=== PATIENT | female | born 1955 | race Caucasian/White ===

== ENCOUNTER 2017-05-03 15:03 | Inpatient (IN) | payer OTHER ==
[2017-05-03] MEDS ORDERED: NORMAL SALINE 1000 ML 1,000 ML IV ONE ×2 (15:34→17:42)
--- NOTE | 2017-05-03 15:41 | ER Document Report ---
ED General - General Chief Complaint: Weakness Stated Complaint: BODY WEAKNESS Time Seen by Provider: 05/03/17 15:27 Mode of Arrival: Medic Information source: Patient - HPI Onset: Other - Pt. states she has been very depressed since her several months ago -- has been in bed for the past week, unable to get out of bed due to weakness. Daughter stopped by today to she her and called EMS to have her transported here for evaluation. Past Medical History - General Information source: Patient - Social History Smoking Status: Current Every Day Smoker Cigarette use (# per day): Yes Chew tobacco use (# tins/day): No Smoking Education Provided: Yes Family History: None Review of Systems - Review of Systems Constitutional: See HPI, Malaise, Weakness EENT: No symptoms reported Cardiovascular: No symptoms reported Respiratory: No symptoms reported Gastrointestinal: No symptoms reported Musculoskeletal: Joint pain - knees Neurological/Psychological: No symptoms reported -: Yes All other systems reviewed and negative Physical Exam - Vital signs Vitals: Temp Pulse Resp BP Pulse Ox 97.4 F 53 L 20 124/66 97 05/03/17 15:32 05/03/17 15:32 05/03/17 15:32 05/03/17 15:32 05/03/17 15:32 - General General appearance: Appears well - pt is emaciated - HEENT Mouth/Lips: Normal Mucous membranes: Dry Pharynx: Normal Neck: Normal - Respiratory Chest status: Nontender Breath sounds: Normal Chest palpation: Normal - Cardiovascular Rhythm: Regular Heart sounds: Normal auscultation - Abdominal Inspection: Normal Distension: No distension Bowel sounds: Normal Tenderness: Nontender - Extremities General lower extremity: Other - there is a 5 by 5 cm decubitus on the posterior aspect of R upper thigh. There is generalized edema of the LE's with some woody induration Knee: Other - there are bilateral healing abrasions on patellae diffusely. There is min TTP with FROM. Course - Vital Signs Vital signs: Temp Pulse Resp BP Pulse Ox 97.4 F 53 L 14 96/72 L 97 05/03/17 15:32 05/03/17 15:32 05/03/17 18:01 05/03/17 18:01 05/03/17 17:01 - Laboratory Result Diagrams: 05/03/17 17:00 05/03/17 17:00 Laboratory results interpreted by me: 05/03/17 05/03/17 05/03/17 17:00 17:00 17:00 Chloride 96 L BUN 27 H Creatinine 0.46 L Lactic Acid 2.5 H Total Bilirubin 3.3 H Direct Bilirubin 2.5 H CK-MB (CK-2) 5.10 H Total Protein 6.1 L Albumin 2.9 L - Diagnostic Test Radiology reviewed: Reports reviewed - bilateral pleural effusions, ?LLL infiltrate - Consults Dr. Hardin Time consulted: 18:17 Consulted provider: will come to ER Critical Care Note - Critical Care Note Total time excluding time spent on procedures (mins): 30 Discharge - Discharge Clinical Impression: Hypoxia Decubitus ulcer Qualifiers: Pressure ulcer location: thigh Pressure ulcer stage: stage 2 Laterality: left Qualified Code(s): L89.222 - Pressure ulcer of left hip, stage 2 Pneumonia Qualifiers: Pneumonia type: due to unspecified organism Condition: Stable Disposition: ADMITTED INPATIENT Unit Admitted: Telemetry
--- NOTE | 2017-05-03 16:02 | RADIOLOGY REPORT (SQ) ---
EXAM DESCRIPTION: CHEST PA/LAT COMPLETED DATE/TIME: 05/03/2017 3:53 pm REASON FOR STUDY: weakness COMPARISON: 04/28/2007 EXAM PARAMETERS: NUMBER OF VIEWS: two views TECHNIQUE: Digital Frontal and Lateral radiographic views of the chest acquired. RADIATION DOSE: NA LIMITATIONS: none FINDINGS: LUNGS AND PLEURA: There are bilateral pleural effusions. There is left lower lobe airspac e disease. Interstitial markings are prominent bilaterally. MEDIASTINUM AND HILAR STRUCTURES: No masses or contour abnormalities. HEART AND VASCULAR STRUCTURES: Heart size is grossly stable. There is central vascular congestion. BONES: No acute findings. HARDWARE: None in the chest. OTHER: No other significant finding. IMPRESSION: Bilateral pleural effusions with probable interstitial edema. Superimposed atelectasis or pneumonia in the left base cannot be excluded. TECHNICAL DOCUMENTATION: JOB ID: [id number] [employer]- All Rights Reserved
[2017-05-03] MEDS ORDERED: LEVOFLOXACIN 750 MG/D5W RTU 750 MG/150 ML RTUPB IV ONE (16:45)
[2017-05-03 17:38] LABS: ALANINE AMINOTRANSFERASE 37 U/L (9-52); ALBUMIN 2.9 g/dL (3.5-5.0); ALKALINE PHOSPHATASE 113 U/L (38-126); ANION GAP 12 (5-19); ASPARTATE AMINO TRANSFERASE 31 U/L (14-36); BILIRUBIN,DIRECT 2.5 mg/dL (0.0-0.4); BILIRUBIN,TOTAL 3.3 mg/dL (0.2-1.3); BLOOD UREA NITROGEN 27 mg/dL (7-20); CALCIUM 8.8 mg/dL (8.4-10.2); CARBON DIOXIDE 30 mmol/L (22-30); CHLORIDE 96 mmol/L (98-107); CREATINE KINASE 40 U/L (30-135); CREATININE RESULT 0.46 mg/dL (0.52-1.25); GLUCOSE 96 mg/dL (75-110); POTASSIUM 4.5 mmol/L (3.6-5.0); TOTAL PROTEIN 6.1 g/dL (6.3-8.2)
[2017-05-03 17:48] LABS: CREATINE KINASE MB 5.1 ng/mL (<4.55)
[2017-05-03 17:50] LABS: TROPONIN I 0.072 ng/mL
[2017-05-03 18:13] LABS: ABSOLUTE LYMPHOCYTES (AUTO) 1.2 10^3/uL (0.5-4.7); ABSOLUTE MONOCYTES (AUTO) 0.5 10^3/uL (0.1-1.4); BASOPHILS % (AUTO) 0.4 % (0-2); EOSINOPHILS % (AUTO) 0.1 % (0-6); HEMOGLOBIN 17.2 g/dL (12.0-15.5); HGB HCT DIFFERENCE -2.4; LYMPHOCYTES % (AUTO) 11.1 % (13-45); MEAN CORPUSCULAR HEMOGLOBIN 27.3 pg (27.0-33.4); MEAN CORPUSCULAR HGB CONC 31.9 g/dL (32.0-36.0); MEAN CORPUSCULAR VOLUME 86 fl (80-97); MONOCYTES % (AUTO) 4.7 % (3-13); RED CELL DISTRIBUTION WIDTH 22.2 % (11.5-14.0); SEGMENTED NEUTROPHILS % (AUTO) 83.7 % (42-78); WHITE BLOOD COUNT 10.8 10^3/uL (4.0-10.5)
[2017-05-03] MEDS ORDERED: ONDANSETRON 4 MG TAB.RAPDIS PO PRN (18:41)
[2017-05-03] MEDS ORDERED: ACETAMINOPHEN 325 MG TABLET PO PRN (18:41)
[2017-05-03] MEDS ORDERED: ONDANSETRON HCL INJ/PF 4 MG/2 ML SDV IV PRN (18:41)
[2017-05-03] MEDS ORDERED: IPRATROPIUM/ALBUTEROL 0.5-2.5 MG/3 ML AMPUL NEB PRN (18:41)
--- NOTE | 2017-05-03 18:59 | PDOC H&P ---
History of Present Illness Admission Date/PCP: 05/03/17 18:45 Patient complains of: Shortness of breath History of Present Illness: SILVESTRE AG is a 61 year old female whose in [facility] of this year and since that time has been depressed. The patient over the last week has been lying in bed and not getting out or eating. Her daughter checked on her and called EMS. Patient is found to have pneumonia. Patient reports that she has had a nonproductive cough and has felt short of breath. She denies any chest pain. She is emaciated and has anasarca. She reports that she has been eating very little. According the daughter she has lost 30 or 40 pounds by her estimation. The patient reports she has been depressed and has had suicidal thoughts but no definitive plan. She has taken Wellbutrin and Celexa in the past but has not taken for the last week. The patient has multiple areas of skin breakdown. Her bilateral elbows, bilateral heels, bilateral shins, bilateral knees, sacrum shows unstageable wound but presumed to be stage III decubitus. She has woody induration up to the level of her rib cage. Past Medical History Cardiac Medical History: Reports: Hypertension Pulmonary Medical History: Reports: Bronchitis EENT Medical History: Reports: None Neurological Medical History: Reports: None Endocrine Medical History: Reports: None Renal/ Medical History: Reports: None Malignancy Medical History: Reports: None GI Medical History: Reports: None Psychiatric Medical History: Reports: Depression Traumatic Medical History: Reports: None Hematology: Reports: None Infectious Medical History: Reports: None Past Surgical History Past Surgical History: Reports: Appendectomy Social History Information Source: Patient Lives with: Alone Smoking Status: Current Every Day Smoker Frequency of Alcohol Use: None Hx Recreational Drug Use: No Drugs: None Hx Prescription Drug Abuse: No - Advance Directive Resuscitation Status: Full Code Family History Family History: Mother at age 75 and had hypertension. Father at age 68 from liver disease. Parental Family History Reviewed: Yes Children Family History Reviewed: No Sibling(s) Family History Reviewed.: No Review of Systems Constitutional: PRESENT: weakness, weight loss - About 30 pounds.. ABSENT: chills, fever(s), headache(s) Eyes: ABSENT: visual disturbances Ears: ABSENT: hearing changes Cardiovascular: ABSENT: chest pain, dyspnea on exertion, edema, orthropnea, palpitations Respiratory: PRESENT: cough, dyspnea. ABSENT: hemoptysis, sputum Gastrointestinal: ABSENT: abdominal pain, constipation, diarrhea, hematemesis, hematochezia, nausea, vomiting Genitourinary: ABSENT: dysuria, hematuria Musculoskeletal: PRESENT: back pain Integumentary: PRESENT: other - Multiple areas of skin breakdown on elbows, knees, heels, sacrum. Neurological: PRESENT: weakness. ABSENT: abnormal gait, abnormal speech, confusion, dizziness, focal weakness, syncope Psychiatric: PRESENT: depression, suicidal ideation. ABSENT: homidical ideation Endocrine: ABSENT: cold intolerance, heat intolerance, polydipsia, polyuria Hematologic/Lymphatic: ABSENT: easy bleeding, easy bruising Physical Exam Vital Signs: Temp Pulse Resp BP Pulse Ox 97.4 F 53 L 14 96/72 L 97 05/03/17 15:32 05/03/17 15:32 05/03/17 18:01 05/03/17 18:01 05/03/17 17:01 General appearance: PRESENT: no acute distress, thin Head exam: PRESENT: atraumatic, normocephalic Eye exam: PRESENT: conjunctiva pink, EOMI, PERRLA. ABSENT: scleral icterus Ear exam: PRESENT: bleeding Mouth exam: PRESENT: dry mucosa, tongue midline Neck exam: ABSENT: carotid bruit, JVD, lymphadenopathy, thyromegaly Respiratory exam: PRESENT: rhonchi - Coarse rhonchi bilaterally.. ABSENT: rales , wheezes Cardiovascular exam: PRESENT: RRR. ABSENT: diastolic murmur, rubs, systolic murmur Pulses: PRESENT: normal dorsalis pedis pul Vascular exam: PRESENT: normal capillary refill GI/Abdominal exam: PRESENT: normal bowel sounds, soft. ABSENT: distended, guarding, mass, organolmegaly, rebound, tenderness Rectal exam: PRESENT: deferred Neurological exam: PRESENT: alert, awake, oriented to person, oriented to place , oriented to time, oriented to situation, CN II-XII grossly intact, other - Patient's gait was not tested.. ABSENT: motor sensory deficit Psychiatric exam: PRESENT: flat affect Skin exam: PRESENT: other - Multiple areas of erythema and skin breakdown on her elbows, knees, heels, sacrum. There is surrounding erythema along with a large bulla on the left foot on the plantar aspect. There is dark dusky area on the bilateral heels. The sacrum is unstageable wound but probable stage III at least. Results Impressions: Chest X-Ray 05/03/17 15:32 IMPRESSION: Bilateral pleural effusions with probable interstitial edema. Superimposed atelectasis or pneumonia in the left base cannot be excluded. Assessment & Plan - Diagnosis (1) Pneumonia Qualifiers: Pneumonia type: due to unspecified organism Is this a current diagnosis for this admission?: Yes Plan: Patient has been depressed for the last several months since the of her . She has been lying in bed for the last week and now has pneumonia. We will give Rocephin and Zithromax. Most likely has gram-positive cocci as the cause for her community-acquired pneumonia. (2) Malnutrition Is this a current diagnosis for this admission?: Yes Plan: The patient is uncertain as to how much weight she is lost. The daughter estimates that she is lost about 30 or 40 pounds. Will consult dietary (3) Hypertension Is this a current diagnosis for this admission?: Yes Plan: Patient reports a history of hypertension but is not currently on medications. Her blood pressures in the normal range. (4) Depression Is this a current diagnosis for this admission?: Yes Plan: She reports that she has taken Wellbutrin and Celexa but has not taken it for the last week. We will start Celexa and consult psychiatry. (5) Decubitus ulcer Qualifiers: Pressure ulcer location: thigh Pressure ulcer stage: stage 2 Laterality: left Qualified Code(s): L89.222 - Pressure ulcer of left hip, stage 2 Is this a current diagnosis for this admission?: Yes Plan: The patient has pressure ulcers from lying in bed. Will do local wound care. Will consult surgery tomorrow for debridement of her wounds. - Time Time Spent: 50 to 70 Minutes - Inpatient Certification Medical Necessity: Need Close Monitoring Due to Risk of Patient Decompensation, Need For IV Fluids, Need for IV Antibiotics
[2017-05-03 20:33] LABS: THYROID STIMULATING HORMONE 7.45 uIU/mL (0.47-4.68)
--- NOTE | 2017-05-03 23:28 | EKG REPORT ---
SEVERITY:- ABNORMAL ECG - SINUS TACHYCARDIA MULTIPLE VENTRICULAR PREMATURE COMPLEXES LOW VOLTAGE IN FRONTAL LEADS RIGHT VENTRICULAR HYPERTROPHY : Confirmed by: Gale Enriquez 03-May-2017 23:27:04
[2017-05-03] MEDS: FAMOTIDINE 20 MG TABLET PO SCH (23:56)
[2017-05-04] MEDS: NORMAL SALINE 1000 ML 1,000 ML IV PRN ×2 (01:32→08:35)
[2017-05-04 06:33] LABS: ABSOLUTE LYMPHOCYTES (AUTO) 1.2 10^3/uL (0.5-4.7); ABSOLUTE MONOCYTES (AUTO) 0.6 10^3/uL (0.1-1.4); ABSOLUTE NEUT (AUTO) 6.8 10^3/uL (1.7-8.2); EOSINOPHILS % (AUTO) 0.1 % (0-6); HEMATOCRIT 50.3 % (36.0-47.0); HEMOGLOBIN 15.9 g/dL (12.0-15.5); HGB HCT DIFFERENCE -2.6; LYMPHOCYTES % (AUTO) 13.7 % (13-45); MEAN CORPUSCULAR HEMOGLOBIN 27.4 pg (27.0-33.4); MEAN CORPUSCULAR HGB CONC 31.6 g/dL (32.0-36.0); MEAN CORPUSCULAR VOLUME 87 fl (80-97); MONOCYTES % (AUTO) 6.7 % (3-13); RED CELL DISTRIBUTION WIDTH 22.1 % (11.5-14.0); SEGMENTED NEUTROPHILS % (AUTO) 79.5 % (42-78); WHITE BLOOD COUNT 8.6 10^3/uL (4.0-10.5)
[2017-05-04 06:47] LABS: ANION GAP 6 (5-19); BLOOD UREA NITROGEN 22 mg/dL (7-20); CALCIUM 8.4 mg/dL (8.4-10.2); CARBON DIOXIDE 36 mmol/L (22-30); CHLORIDE 99 mmol/L (98-107); CREATININE RESULT 0.44 mg/dL (0.52-1.25); GLUCOSE 97 mg/dL (75-110); MAGNESIUM 1.8 mg/dL (1.6-2.3); SODIUM 141.3 mmol/L (137-145)
[2017-05-04 08:25] LABS: APPEARANCE,URINE SLIGHTLY-CLOUDY; BILIRUBIN,URINE SMALL (NEGATIVE); GLUCOSE, URINE NEGATIVE (NEGATIVE); KETONES,URINE NEGATIVE (NEGATIVE); LEUKOCYTE ESTERASE,URINE SMALL (NEGATIVE); NITRITE,URINE NEGATIVE (NEGATIVE); PROTEIN,URINE 30 mg/dL (NEGATIVE); URINE SPECIFIC GRAVITY 1.027
[2017-05-04] MEDS: ENOXAPARIN SODIUM INJ 40 MG/0.4 ML DISP.SYRIN SUBCUT SCH (09:45)
[2017-05-04] MEDS: CEFTRIAXONE 1 GM/D5W RTU 1 GM/50 ML RTUPB IV SCH (09:46)
[2017-05-04] MEDS: FAMOTIDINE 20 MG TABLET PO SCH ×2 (09:47→21:38)
[2017-05-04] MEDS: CITALOPRAM HYDROBROMIDE 20 MG TABLET PO SCH (09:47)
[2017-05-04] MEDS: AZITHROMYCIN 500 MG in DEXTROSE 5%-WATER 250 ML IV SCH (10:44)
--- NOTE | 2017-05-04 13:07 | PDOC PROGRESS REPORT ---
Subjective Progress Note for:: 05/04/17 Subjective:: Denies any complaints Physical Exam Vital Signs: Temp Pulse Resp BP Pulse Ox 97.8 F 106 H 16 128/70 H 98 05/04/17 10:46 05/04/17 10:46 05/04/17 10:46 05/04/17 10:46 05/04/17 10:46 Intake & Output 05/03/17 05/04/17 05/05/17 06:59 06:59 06:59 Intake Total 1814 200 Balance 1814 200 Weight 52.5 kg General appearance: PRESENT: no acute distress Eye exam: PRESENT: conjunctiva pink. ABSENT: scleral icterus Ear exam: PRESENT: normal external ear exam Mouth exam: PRESENT: moist, tongue midline Neck exam: ABSENT: JVD Respiratory exam: PRESENT: rhonchi - Coarse rhonchi in the bases.. ABSENT: rales, wheezes Cardiovascular exam: PRESENT: RRR. ABSENT: diastolic murmur, rubs, systolic murmur GI/Abdominal exam: PRESENT: normal bowel sounds, soft. ABSENT: distended, guarding, mass, organolmegaly, rebound, tenderness Extremities exam: ABSENT: calf tenderness, clubbing, pedal edema Neurological exam: PRESENT: alert, awake, oriented to person, oriented to place , oriented to time, oriented to situation, CN II-XII grossly intact. ABSENT: motor sensory deficit Psychiatric exam: PRESENT: flat affect Skin exam: PRESENT: other - Multiple areas of skin breakdown on her elbows, knees, heels, sacrum. Results Laboratory Results: 05/04/17 05:41 05/04/17 05:41 05/03/17 05/03/17 05/04/17 19:40 23:55 05:41 WBC 8.6 RBC 5.80 H Hgb 15.9 H Hct 50.3 H MCV 87 MCH 27.4 MCHC 31.6 L RDW 22.1 H Plt Count 193 Seg Neutrophils % 79.5 H Lymphocytes % 13.7 Monocytes % 6.7 Eosinophils % 0.1 Basophils % 0.0 Absolute Neutrophils 6.8 Absolute Lymphocytes 1.2 Absolute Monocytes 0.6 Absolute Eosinophils 0.0 Absolute Basophils 0.0 Sodium Potassium Chloride Carbon Dioxide Anion Gap BUN Creatinine Est GFR ( Amer) Est GFR (Non-Af Amer) Glucose Lactic Acid 1.9 Calcium Magnesium TSH 7.45 H Free T4 0.73 L Urine Color Urine Appearance Urine pH Ur Specific [place] Urine Protein Urine Glucose (UA) Urine Ketones Urine Blood Urine Nitrite Ur Leukocyte Esterase Urine WBC (Auto) Urine RBC (Auto) 05/04/17 05/04/17 05:41 07:57 WBC RBC Hgb Hct MCV MCH MCHC RDW Plt Count Seg Neutrophils % Lymphocytes % Monocytes % Eosinophils % Basophils % Absolute Neutrophils Absolute Lymphocytes Absolute Monocytes Absolute Eosinophils Absolute Basophils Sodium 141.3 Potassium 4.0 Chloride 99 Carbon Dioxide 36 H Anion Gap 6 BUN 22 H Creatinine 0.44 L Est GFR ( Amer) > 60 Est GFR (Non-Af Amer) > 60 Glucose 97 Lactic Acid Calcium 8.4 Magnesium 1.8 TSH Free T4 Urine Color SANTANA Urine Appearance SLIGHTLY-CLOUDY Urine pH 5.0 Ur Specific [place] 1.027 Urine Protein 30 H Urine Glucose (UA) NEGATIVE Urine Ketones NEGATIVE Urine Blood NEGATIVE Urine Nitrite NEGATIVE Ur Leukocyte Esterase SMALL H Urine WBC (Auto) 112 Urine RBC (Auto) 7 05/03/17 19:40 NT-Pro-B Natriuret Pep 6660 H Impressions: Chest X-Ray 05/03/17 15:32 IMPRESSION: Bilateral pleural effusions with probable interstitial edema. Superimposed atelectasis or pneumonia in the left base cannot be excluded. Assessment & Plan - Diagnosis (1) Pneumonia Qualifiers: Pneumonia type: due to unspecified organism Is this a current diagnosis for this admission?: Yes Plan: Patient has been depressed for the last several months since the of her . She has been lying in bed for the last week and now has pneumonia. We will give Rocephin and Zithromax. Most likely has gram-positive cocci as the cause for her community-acquired pneumonia. (2) Malnutrition Is this a current diagnosis for this admission?: Yes Plan: The patient is uncertain as to how much weight she is lost. The daughter estimates that she is lost about 30 or 40 pounds. Will consult dietary (3) Hypertension Is this a current diagnosis for this admission?: Yes Plan: Patient reports a history of hypertension but is not currently on medications. Her blood pressures in the normal range. (4) Depression Is this a current diagnosis for this admission?: Yes Plan: She reports that she has taken Wellbutrin and Celexa but has not taken it for the last week. We will start Celexa and consult psychiatry. (5) Decubitus ulcer Qualifiers: Pressure ulcer location: thigh Pressure ulcer stage: stage 2 Laterality: left Qualified Code(s): L89.222 - Pressure ulcer of left hip, stage 2 Is this a current diagnosis for this admission?: Yes Plan: The patient has pressure ulcers from lying in bed. Will do local wound care. Will consult surgery for debridement of her wounds. - Time Time Spent with patient: 25-34 minutes - Inpatient Certification Medical Necessity: Need Close Monitoring Due to Risk of Patient Decompensation, Need for IV Antibiotics
--- NOTE | 2017-05-04 22:43 | OPERATIVE REPORT E ---
Operative Report NAME: SILVESTRE AG : 1955 AGE: 61Y DATE OF SURGERY: 05/04/2017 ROOM: 331 PREOPERATIVE DIAGNOSIS: Multiple pressure ulcers of the right knee, left knee and left ischial tuberosity, stage 3. POSTOPERATIVE DIAGNOSIS: Multiple pressure ulcers of the right knee, left knee and left ischial tuberosity, stage 3. OPERATION: Excisional debridement of eschar from left knee, right knee and left ischial tuberosity pressure ulcers, stage 3. SURGEON: GUSTAVO CLAYTON M.D. ANESTHESIA: None. DRAINS: None. TISSUE REMOVED OR ALTERED: tissue. COMPLICATIONS: None. SUMMARY OF PROCEDURE: The patient's effected areas including left knee, right knee and left ischial tuberosity were exposed. Stage 3 pressure ulcers were cleaned with wipes, then using a pair of pickups and #10 blade, eschar including skin and subcutaneous tissue, which was dry and leather-like, were excised in a clean, excisional fashion down to the deep subcutaneous tissue on the ischial tuberosity and down to the fascia over the knees. Approximate surface area included 2 x 2 on the left knee, 3 x 3 cm on the right knee, and 4 x 4 cm on the tibial tuberosity. The wounds were washed and coated with dressings including Accuzyme cream and Allevyn dressings. Dressing change orders entered into the electronic medical record. The patient tolerated the procedure well. DICTATING PHYSICIAN: GUSTAVO CLAYTON M.D. [id number] PHY#: [id number] ID: [id number] JOB#: [id number] ACCT: [id number] cc:GUSTAVO CLAYTON M.D. > MTDD
[2017-05-05] MEDS: NORMAL SALINE 1000 ML 1,000 ML IV PRN ×2 (05:26→22:22)
[2017-05-05 06:39] LABS: ARTERIAL BLOOD BASE EXCESS 6.1 mmol/L; ARTERIAL BLOOD O2 SATURATION 96.1 % (94-98)
[2017-05-05 06:42] LABS: ABSOLUTE LYMPHOCYTES (AUTO) 0.9 10^3/uL (0.5-4.7); ABSOLUTE MONOCYTES (AUTO) 0.4 10^3/uL (0.1-1.4); ABSOLUTE NEUT (AUTO) 7.4 10^3/uL (1.7-8.2); BASOPHILS % (AUTO) 0.5 % (0-2); HEMATOCRIT 53.7 % (36.0-47.0); HEMOGLOBIN 16.6 g/dL (12.0-15.5); HGB HCT DIFFERENCE -3.9; LYMPHOCYTES % (AUTO) 10.6 % (13-45); MEAN CORPUSCULAR HEMOGLOBIN 27.5 pg (27.0-33.4); MEAN CORPUSCULAR HGB CONC 30.9 g/dL (32.0-36.0); MEAN CORPUSCULAR VOLUME 89 fl (80-97); MONOCYTES % (AUTO) 4.1 % (3-13); RED BLOOD COUNT 6.05 10^6/uL (3.72-5.28); RED CELL DISTRIBUTION WIDTH 23.1 % (11.5-14.0); SEGMENTED NEUTROPHILS % (AUTO) 84.8 % (42-78); WHITE BLOOD COUNT 8.7 10^3/uL (4.0-10.5)
[2017-05-05] MEDS ORDERED: NALOXONE HCL INJ/PF 0.4 MG/1 ML SDV IV ONE (06:46)
[2017-05-05] MEDS ORDERED: NALOXONE HCL INJ/PF 0.4 MG/1 ML SDV ONE (06:53)
--- NOTE | 2017-05-05 07:59 | PDOC PROGRESS REPORT ---
Subjective Progress Note for:: 05/05/17 Subjective:: Patient admitted for pneumonia and depression. Patient reportedly had change in mental status last night of which the ABG shows a low pH with an elevated PCO2. Patient was transferred to ICU and was placed on BiPAP. Patient however is mildly lethargic but easily arousable and reportedly answers questions appropriately. No reported temperature spikes no respiratory distress. No nausea or vomiting. Patient on admission reported with suicidal ideations. Currently denies hurting herself or other. Physical Exam Vital Signs: Temp Pulse Resp BP Pulse Ox 97.5 F 108 H 15 100/62 95 05/05/17 05:45 05/05/17 05:45 05/05/17 06:22 05/05/17 05:45 05/05/17 06:22 Intake & Output 05/04/17 05/05/17 05/06/17 06:59 06:59 06:59 Intake Total 1814 1213 Output Total 300 Balance 1814 913 Weight 52.5 kg 52.4 kg General appearance: PRESENT: no acute distress, thin, other - On BiPAP Head exam: PRESENT: normocephalic Eye exam: PRESENT: EOMI Mouth exam: PRESENT: moist, neck supple Neck exam: ABSENT: JVD Respiratory exam: PRESENT: decreased breath sounds - Lung bases, rhonchi - Few bilateral, unlabored. ABSENT: wheezes Cardiovascular exam: PRESENT: RRR, +S1, +S2. ABSENT: gallop GI/Abdominal exam: PRESENT: hypoactive bowel sounds, soft, other - Fullness to percussion. ABSENT: distended Extremities exam: PRESENT: other - Trace lower extremity edema Neurological exam: PRESENT: alert, awake, oriented to situation Psychiatric exam: PRESENT: depressed Skin exam: PRESENT: dry, warm, other - Multiple decubitus ulcers on the legs and knees bilaterally and on the left hip. Wound seems to be clean without any foul-smelling drainage noted.. ABSENT: cyanosis Results Laboratory Results: 05/05/17 06:19 05/05/17 07:26 05/04/17 05/05/17 05/05/17 07:57 06:19 06:19 WBC 8.7 RBC 6.05 H Hgb 16.6 H Hct 53.7 H MCV 89 MCH 27.5 MCHC 30.9 L RDW 23.1 H Plt Count 177 Seg Neutrophils % 84.8 H Lymphocytes % 10.6 L Monocytes % 4.1 Eosinophils % 0.0 Basophils % 0.5 Absolute Neutrophils 7.4 Absolute Lymphocytes 0.9 Absolute Monocytes 0.4 Absolute Eosinophils 0.0 Absolute Basophils 0.0 Carbonic Acid HCO3/H2CO3 Ratio ABG pH ABG pCO2 ABG pO2 ABG HCO3 ABG O2 Saturation ABG Base Excess FiO2 Sodium Cancelled Potassium Cancelled Chloride Cancelled Carbon Dioxide Cancelled Anion Gap Cancelled BUN Cancelled Creatinine Cancelled Est GFR ( Amer) Cancelled Est GFR (Non-Af Amer) Cancelled Glucose Cancelled Calcium Cancelled Urine Color SANTANA Urine Appearance SLIGHTLY-CLOUDY Urine pH 5.0 Ur Specific [place] 1.027 Urine Protein 30 H Urine Glucose (UA) NEGATIVE Urine Ketones NEGATIVE Urine Blood NEGATIVE Urine Nitrite NEGATIVE Ur Leukocyte Esterase SMALL H Urine WBC (Auto) 112 Urine RBC (Auto) 7 05/05/17 05/05/17 06:20 07:26 WBC RBC Hgb Hct MCV MCH MCHC RDW Plt Count Seg Neutrophils % Lymphocytes % Monocytes % Eosinophils % Basophils % Absolute Neutrophils Absolute Lymphocytes Absolute Monocytes Absolute Eosinophils Absolute Basophils Carbonic Acid 3.57 H HCO3/H2CO3 Ratio 11:1 ABG pH 7.16 L* ABG pCO2 118.5 H* ABG pO2 109.9 H ABG HCO3 40.8 H ABG O2 Saturation 96.1 ABG Base Excess 6.1 FiO2 44% Sodium Cancelled Potassium Cancelled Chloride Cancelled Carbon Dioxide Cancelled Anion Gap Cancelled BUN Cancelled Creatinine Cancelled Est GFR ( Amer) Cancelled Est GFR (Non-Af Amer) Cancelled Glucose Cancelled Calcium Cancelled Urine Color Urine Appearance Urine pH Ur Specific [place] Urine Protein Urine Glucose (UA) Urine Ketones Urine Blood Urine Nitrite Ur Leukocyte Esterase Urine WBC (Auto) Urine RBC (Auto) 05/03/17 19:40 NT-Pro-B Natriuret Pep 6660 H Impressions: Chest X-Ray 05/03/17 15:32 IMPRESSION: Bilateral pleural effusions with probable interstitial edema. Superimposed atelectasis or pneumonia in the left base cannot be excluded. Assessment & Plan - Diagnosis (1) Acute hypercapnic respiratory failure Is this a current diagnosis for this admission?: Yes (2) Pneumonia Qualifiers: Pneumonia type: due to unspecified organism Is this a current diagnosis for this admission?: Yes (3) UTI (urinary tract infection) Qualifiers: Urinary tract infection type: site unspecified Hematuria presence: without hematuria Qualified Code(s): N39.0 - Urinary tract infection, site not specified Is this a current diagnosis for this admission?: Yes (4) Hypothyroidism Qualifiers: Hypothyroidism type: unspecified Qualified Code(s): E03.9 - Hypothyroidism , unspecified Is this a current diagnosis for this admission?: Yes (5) Decubitus ulcer Qualifiers: Pressure ulcer location: thigh Pressure ulcer stage: stage 2 Laterality: left Qualified Code(s): L89.222 - Pressure ulcer of left hip, stage 2 Is this a current diagnosis for this admission?: Yes (6) Depression Qualifiers: Depression Type: unspecified Qualified Code(s): F32.9 - Major depressive disorder, single episode, unspecified Is this a current diagnosis for this admission?: Yes (7) Hypertension Qualifiers: Hypertension type: essential hypertension Qualified Code(s): I10 - Essential (primary) hypertension Is this a current diagnosis for this admission?: Yes (8) Malnutrition Qualifiers: Malnutrition type: unspecified type Qualified Code(s): E46 - Unspecified protein-calorie malnutrition Is this a current diagnosis for this admission?: Yes - Time Time Spent with patient: 25-34 minutes - Plan Summary Plan Summary: Continue BIPAP. Repeat ABG and monitor PCO2. Obtain echocardiogram. Continue antibiotics. Obtain urine culture. Consult psychiatry. Check KUB for impaction.
[2017-05-05 09:22] LABS: VENOUS BLOOD HCO3 39.5 mmol/L (20-32); VENOUS BLOOD PH 7.21 (7.30-7.42)
[2017-05-05 09:24] LABS: VENOUS BLOOD PCO2 100.6 mmHg (35-63)
[2017-05-05 09:37] LABS: ANION GAP 6 (5-19); BLOOD UREA NITROGEN 22 mg/dL (7-20); CALCIUM 8.7 mg/dL (8.4-10.2); CARBON DIOXIDE 37 mmol/L (22-30); CHLORIDE 98 mmol/L (98-107); CREATININE RESULT 0.52 mg/dL (0.52-1.25); GLUCOSE 103 mg/dL (75-110); POTASSIUM 4.4 mmol/L (3.6-5.0); SODIUM 141.2 mmol/L (137-145)
--- NOTE | 2017-05-05 10:05 | PSYCHOLOGICAL NOTE ---
Psych Note - Psych Note Psych Note: SILVESTRE AG is a 61 year old female whose in [facility] of this year and since that time has been depressed. The patient over the last week has been lying in bed and not getting out or eating. Her daughter checked on her and called EMS. Patient is found to have pneumonia. Patient reports that she has had a nonproductive cough and has felt short of breath. She denies any chest pain. She is emaciated and has anasarca. She reports that she has been eating very little. According the daughter she has lost 30 or 40 pounds by her estimation. The patient reports she has been depressed and has had suicidal thoughts but no definitive plan. She has taken Wellbutrin and Celexa in the past but has not taken for the last week. Patient was transferred to ICU and was placed on BiPAP. ICU staff request re- evaluation to occur tomorrow due to patient's current presentation. Will follow.
--- NOTE | 2017-05-05 10:48 | OPERATIVE REPORT E ---
Operative Report NAME: SILVESTRE AG : 1955 AGE: 61Y DATE OF SURGERY: 05/05/2017 ROOM: 601 PREOPERATIVE DIAGNOSIS: POOR VEINS FOR IV ACCESS IN PATIENT WITH PNEUMONIA AND FAILURE TO THRIVE. POSTOPERATIVE DIAGNOSIS: POOR VEINS FOR IV ACCESS IN PATIENT WITH PNEUMONIA AND FAILURE TO THRIVE. OPERATION: Placement of right subclavian catheter. SURGEON: MAGY MANDEL M.D. ANESTHESIA: Local. INDICATIONS: This is a 61-year-old female who needed IV access for medications and fluids. She has poor peripheral veins are IV access. DESCRIPTION OF PROCEDURE: The patient was placed in Trendelenburg position and the right chest and neck were then prepped and draped in the usual sterile fashion. Local anesthesia infiltrated along the right infraclavicular area and the right subclavian vein punctured and guidewire passed through the needle towards the area of the superior vena cava and needle subsequently pulled out. Insertion site was then dilated and a triple-lumen catheter inserted through the guidewire towards the superior vena cava. The catheter was then anchored to the skin with 3-0 silk. The catheter was placed about 15 cm from the puncture site. Next, BioPatch was placed at the insertion site and a transparent sterile dressing was placed over the BioPatch and catheter. The 3-way ports were irrigated and aspirated blood easily. A chest x-ray will be obtained for placement and to make sure there is no pneumothorax. DICTATING PHYSICIAN: MAGY MANDEL M.D. [id number] PHY#: [id number] ID: [id number] JOB#: [id number] ACCT: [id number] cc:MAGY MANDEL M.D. >
[2017-05-05] MEDS ORDERED: ONDANSETRON 4 MG TAB.RAPDIS PO PRN (11:00)
--- NOTE | 2017-05-05 11:28 | RADIOLOGY REPORT (SQ) ---
EXAM DESCRIPTION: CHEST SINGLE VIEW COMPLETED DATE/TIME: 05/05/2017 10:53 am REASON FOR STUDY: respiratory failure, BIPAP COMPARISON: 05/03/2017 EXAM PARAMETERS: NUMBER OF VIEWS: One view. TECHNIQUE: Single frontal radiographic view of the chest acquired. RADIATION DOSE: NA LIMITATIONS: None. FINDINGS: LUNGS AND PLEURA: There are persistent bilateral pleural effusions and bibasilar airspace disease. A right-sided central line has been placed. Catheter tip overlies the SVC. No pneumothora x. MEDIASTINUM AND HILAR STRUCTURES: No masses. Contour normal. HEART AND VASCULAR STRUCTURES: Heart normal in size. Normal vasculature. BONES: No acute findings. HARDWARE: None in the chest. OTHER: No other significant finding. IMPRESSION: Increasing pleural effusions and bibasilar airspace disease. A component of vascular co ngestion cannot be excluded. A right-sided central line has been added. No pneumothorax. TECHNICAL DOCUMENTATION: JOB ID: [id number]
--- NOTE | 2017-05-05 11:29 | RADIOLOGY REPORT (SQ) ---
EXAM DESCRIPTION: KUB/ABDOMEN (SINGLE VIEW) COMPLETED DATE/TIME: 05/05/2017 10:53 am REASON FOR STUDY: fecal impaction COMPARISON: 04/28/2007 NUMBER OF VIEWS: One view. TECHNIQUE: Supine radiographic image of the abdomen acquired. LIMITATIONS: None. FINDINGS: BOWEL GAS PATTERN: Gas pattern is nonobstructive. There is large amount of stool in the v isualize:. No small-bowel air is identified. This may be secondary to fluid-filled small bowel loop s. CALCIFICATIONS: No suspicious calcifications. SOFT TISSUES: No gross mass or suggestion of organomegaly. HARDWARE: None in the abdomen. BONES: No acute fracture. No worrisome bone lesions. OTHER: No other significant finding. IMPRESSION: Large amount of stool throughout the colon consistent with the clinical history. No con ventional radiographic evidence of obstruction. TECHNICAL DOCUMENTATION: JOB ID: [id number] All Rights Reserved
[2017-05-05] MEDS: CITALOPRAM HYDROBROMIDE 20 MG TABLET PO SCH (11:34)
[2017-05-05] MEDS: FAMOTIDINE 20 MG TABLET PO SCH ×2 (11:34→22:21)
[2017-05-05] MEDS: AZITHROMYCIN 500 MG in DEXTROSE 5%-WATER 250 ML IV SCH (12:03)
[2017-05-05] MEDS: CEFTRIAXONE 1 GM/D5W RTU 1 GM/50 ML RTUPB IV SCH (12:03)
[2017-05-05] MEDS: ENOXAPARIN SODIUM INJ 40 MG/0.4 ML DISP.SYRIN SUBCUT SCH (12:04)
[2017-05-05 12:40] LABS: VENOUS BLOOD BASE EXCESS 1.6 mmol/L; VENOUS BLOOD HCO3 32.6 mmol/L (20-32); VENOUS BLOOD PH 7.22 (7.30-7.42)
[2017-05-05 12:44] LABS: VENOUS BLOOD PCO2 82.5 mmHg (35-63)
[2017-05-05 12:54] LABS: URINE BARBITURATES SCREEN NEGATIVE; URINE METHADONE SCREEN NEGATIVE; URINE OPIATES LOW NEGATIVE; URINE PHENCYCLIDINE SCREEN NEGATIVE
[2017-05-05] MEDS ORDERED: FUROSEMIDE 20 MG TABLET PO ONE (13:50)
[2017-05-05] MEDS ORDERED: FUROSEMIDE INJ/PF 20 MG/2 ML SDV IV ONE (14:00)
[2017-05-05] MEDS ORDERED: FUROSEMIDE INJ/PF 20 MG/2 ML SDV ONE (14:31)
--- NOTE | 2017-05-05 18:18 | XCELERA REPORT ---
[address] [address] Transthoracic Echocardiogram Report Name: SILVESTRE AG Age: 61 yrs Gender: Female : 1955 Patient Status: Inpatient Patient Location: ICU^601^A Study Date: 05/05/2017 08:28 AM Height: 63 in Weight: 115 lb BSA: 1.5 m2 Procedure: A two-dimensional transthoracic echocardiogram with color flow and Doppler was performed. The study was technically difficult with many images being suboptimal in quality. Reason For Study: pleural effusion, elevated BNP History: pleural effusion, elevated BNP. Ordering Physician: DAVID SANDERS Performed By: Ana Benoit Interpretation Summary The left ventricle is normal in size. There is normal left ventricular wall thickness. LV EF is 60% Left ventricular systolic function is normal. Doppler measurements suggest impaired left ventricular relaxation, which is associated with grade I/IV or mild diastolic dysfunction The left ventricular wall motion is normal. Flattened septum is consistent with RV pressure/volume overload There is no thrombus. There is no ventricular septal defect visualized. The right ventricle is mildly dilated. The right atrium is moderately dilated. The left atrial size is normal. The interatrial septum is intact with no evidence for an atrial septal defect. There is no evidence of mitral valve prolapse. There is no mitral valve stenosis. There is a mild amount of mitral regurgitation There is no aortic valve stenosis No aortic regurgitation is present. There is a severe amount of tricuspid regurgitation There is servere pulmonary hypertension by echo RVSP is 106 mm of Hg , with RA mean of 20. There is a trace amount of pulmonic regurgitation Minimal pericardial effusion. There are no echocardiographic or Doppler indications for cardiac tamponade MMode/2D Measurements & Calculations RVDd: 4.0 cm LVIDd: 3.5 cm FS: 43.2 % Ao root diam: 2.5 cm IVSd: 0.55 cm LVIDs: 2.0 cm EDV(Teich): 51.9 ml LVPWd: 0.60 cm ESV(Teich): 12.8 ml Ao root area: 4.7 cm2 EF(Teich): 75.3 % LA dimension: 2.9 cm Doppler Measurements & Calculations MV E max sylvain: MV P1/2t max sylvain: Ao V2 max: LV V1 max P.1 cm/sec 55.1 cm/sec 82.1 cm/sec 2.1 mmHg MV A max sylvain: MV P1/2t: 38.9 msec Ao max PG: LV V1 max: 76.0 cm/sec 2.7 mmHg 73.3 cm/sec MV E/A: 0.73 MVA(P1/2t): 5.6 cm2 MV dec slope: 414.7 cm/sec2 MV dec time: 0.13 sec PA V2 max: TR max sylvain: 73.5 cm/sec 464.2 cm/sec PA max PG: TR max P.2 mmHg 2.2 mmHg Left Ventricle The left ventricle is normal in size. There is normal left ventricular wall thickness. LV EF is 60%. Left ventricular systolic function is normal. Doppler measurements suggest impaired left ventricular relaxation, which is associated with grade I/IV or mild diastolic dysfunction. The left ventricular wall motion is normal. Flattened septum is consistent with RV pressure/volume overload. There is no thrombus. There is no ventricular septal defect visualized. Right Ventricle The right ventricle is mildly dilated. The right ventricular systolic function is mild to moderately reduced. Atria The right atrium is moderately dilated. The left atrial size is normal. The interatrial septum is intact with no evidence for an atrial septal defect. Mitral Valve There is no evidence of mitral valve prolapse. There is no vegetation seen on the mitral valve. There is no mitral valve stenosis. There is a mild amount of mitral regurgitation. Aortic Valve There is no aortic valvular vegetation. There is no aortic valve stenosis. There is no LVOT obstruction. No aortic regurgitation is present. Tricuspid Valve There is no tricuspid stenosis. There is a severe amount of tricuspid regurgitation. There is servere pulmonary hypertension by echo. RVSP is 106 mm of Hg , with RA mean of 20. Pulmonic Valve There is no pulmonic valvular stenosis. There is a trace amount of pulmonic regurgitation. Great Vessels The aortic root is normal size. Effusions Minimal pericardial effusion. There are no echocardiographic or Doppler indications for cardiac tamponade. : DAVID SANDERS > Mahnaz Joshua
[2017-05-05 22:37] LABS: VENOUS BLOOD BASE EXCESS 5.1 mmol/L; VENOUS BLOOD HCO3 34.9 mmol/L (20-32); VENOUS BLOOD PH 7.28 (7.30-7.42)
[2017-05-05 22:38] LABS: VENOUS BLOOD PCO2 75.4 mmHg (35-63)
[2017-05-06 06:09] LABS: ALANINE AMINOTRANSFERASE 37 U/L (9-52); ALBUMIN 2.8 g/dL (3.5-5.0); ALKALINE PHOSPHATASE 102 U/L (38-126); ANION GAP 5 (5-19); ASPARTATE AMINO TRANSFERASE 18 U/L (14-36); BILIRUBIN,DIRECT 1.5 mg/dL (0.0-0.4); BILIRUBIN,TOTAL 1.9 mg/dL (0.2-1.3); BLOOD UREA NITROGEN 23 mg/dL (7-20); CALCIUM 8.6 mg/dL (8.4-10.2); CARBON DIOXIDE 38 mmol/L (22-30); CHLORIDE 99 mmol/L (98-107); CREATININE RESULT 0.56 mg/dL (0.52-1.25); GLUCOSE 97 mg/dL (75-110); POTASSIUM 4.4 mmol/L (3.6-5.0); SODIUM 142.4 mmol/L (137-145); TOTAL PROTEIN 5.4 g/dL (6.3-8.2)
--- NOTE | 2017-05-06 06:47 | RADIOLOGY REPORT (SQ) ---
EXAM DESCRIPTION: CHEST SINGLE VIEW COMPLETED DATE/TIME: 05/06/2017 6:17 am REASON FOR STUDY: Pneumonia, resp failure COMPARISON: Chest x-ray 05/05/2017. EXAM PARAMETERS: NUMBER OF VIEWS: One view. TECHNIQUE: Single frontal radiographic view of the chest acquired. RADIATION DOSE: NA LIMITATIONS: None. FINDINGS: LUNGS AND PLEURA: There are small bilateral pleural effusions, left > right. There are bi basilar airspace opacities. No pneumothorax. Hyperlucent lungs, suggestive of emphysema. MEDIASTINUM AND HILAR STRUCTURES: No obvious masses. HEART AND VASCULAR STRUCTURES: The heart is not enlarged. There is no overt vascular congestion. BONES: No acute findings. HARDWARE: Right-sided central catheter with the tip overlying the region of the SVC. IMPRESSION: Small bilateral pleural effusions with bibasilar airspace opacities, may represent atele ctasis or pneumonia. Emphysema. TECHNICAL DOCUMENTATION: JOB ID: [id number]
--- NOTE | 2017-05-06 09:48 | PDOC PROGRESS REPORT ---
Subjective Progress Note for:: 05/06/17 Subjective:: There is no reported respiratory distress nor temperature spikes. There is no bowel movements. Noted some slight increase in edema on the lower extremity. No chills or fever. Patient still somnolent and will not engage in any conversation socially. Physical Exam Vital Signs: Temp Pulse Resp BP Pulse Ox 96.7 F L 93 10 L 100/73 98 05/06/17 08:00 05/06/17 08:00 05/06/17 08:00 05/06/17 08:00 05/06/17 08:00 Intake & Output 05/05/17 05/06/17 05/07/17 06:59 06:59 06:59 Intake Total 1213 997 Output Total 300 845 60 Balance 913 152 -60 Weight 52.4 kg 54.9 kg General appearance: PRESENT: no acute distress, thin, other - On BiPAP Head exam: PRESENT: normocephalic Eye exam: PRESENT: EOMI Mouth exam: PRESENT: moist, neck supple Neck exam: ABSENT: JVD Respiratory exam: PRESENT: clear to auscultation gilles - Poor effort, decreased breath sounds - Lower lung roberson posteriorly on the base bilaterally, unlabored. ABSENT: wheezes Cardiovascular exam: PRESENT: RRR. ABSENT: gallop GI/Abdominal exam: PRESENT: soft. ABSENT: distended, tenderness Extremities exam: PRESENT: +1 edema Neurological exam: PRESENT: alert, awake Psychiatric exam: PRESENT: depressed Skin exam: PRESENT: dry, other - Lower extremity wounds clean dry without purulent drainage or foul-smelling drainage noted at this time.. ABSENT: cyanosis Results Laboratory Results: 05/05/17 06:19 05/06/17 05:25 05/05/17 05/05/17 05/05/17 09:10 11:50 19:40 Carbonic Acid Cancelled HCO3/H2CO3 Ratio Cancelled ABG pH Cancelled ABG pCO2 Cancelled ABG pO2 Cancelled ABG HCO3 Cancelled ABG O2 Saturation Cancelled ABG Base Excess Cancelled VBG pH 7.22 L VBG pCO2 82.5 H* VBG HCO3 32.6 H VBG Base Excess 1.6 FiO2 Cancelled Sodium 141.2 Potassium 4.4 Chloride 98 Carbon Dioxide 37 H Anion Gap 6 BUN 22 H Creatinine 0.52 Est GFR ( Amer) > 60 Est GFR (Non-Af Amer) > 60 Glucose 103 Calcium 8.7 Total Bilirubin AST ALT Alkaline Phosphatase Total Protein Albumin 05/05/17 05/05/17 05/06/17 20:25 22:30 05:25 Carbonic Acid 3.06 H HCO3/H2CO3 Ratio 12:1 ABG pH 7.21 L ABG pCO2 101.5 H* ABG pO2 87.7 ABG HCO3 39.7 H ABG O2 Saturation 94.0 ABG Base Excess 7.0 VBG pH 7.28 L VBG pCO2 75.4 H* VBG HCO3 34.9 H VBG Base Excess 5.1 FiO2 40% Sodium 142.4 Potassium 4.4 Chloride 99 Carbon Dioxide 38 H Anion Gap 5 BUN 23 H Creatinine 0.56 Est GFR ( Amer) > 60 Est GFR (Non-Af Amer) > 60 Glucose 97 Calcium 8.6 Total Bilirubin 1.9 H AST 18 ALT 37 Alkaline Phosphatase 102 Total Protein 5.4 L Albumin 2.8 L 05/03/17 19:40 NT-Pro-B Natriuret Pep 6660 H Impressions: KUB X-Ray 05/05/17 00:00 IMPRESSION: Large amount of stool throughout the colon consistent with the clinical history. No conventional radiographic evidence of obstruction. Chest X-Ray 05/06/17 06:00 IMPRESSION: Small bilateral pleural effusions with bibasilar airspace opacities , may represent atelectasis or pneumonia. Emphysema. Assessment & Plan - Diagnosis (1) Acute hypercapnic respiratory failure Is this a current diagnosis for this admission?: Yes (2) Pneumonia Qualifiers: Pneumonia type: due to unspecified organism Is this a current diagnosis for this admission?: Yes (3) UTI (urinary tract infection) Qualifiers: Urinary tract infection type: site unspecified Hematuria presence: without hematuria Qualified Code(s): N39.0 - Urinary tract infection, site not specified Is this a current diagnosis for this admission?: Yes (4) Hypothyroidism Qualifiers: Hypothyroidism type: unspecified Qualified Code(s): E03.9 - Hypothyroidism , unspecified Is this a current diagnosis for this admission?: Yes (5) Decubitus ulcer Qualifiers: Pressure ulcer location: thigh Pressure ulcer stage: stage 2 Laterality: left Qualified Code(s): L89.222 - Pressure ulcer of left hip, stage 2 Is this a current diagnosis for this admission?: Yes (6) Depression Qualifiers: Depression Type: unspecified Qualified Code(s): F32.9 - Major depressive disorder, single episode, unspecified Is this a current diagnosis for this admission?: Yes (7) Hypertension Qualifiers: Hypertension type: essential hypertension Qualified Code(s): I10 - Essential (primary) hypertension Is this a current diagnosis for this admission?: Yes (8) Malnutrition Qualifiers: Malnutrition type: unspecified type Qualified Code(s): E46 - Unspecified protein-calorie malnutrition Is this a current diagnosis for this admission?: Yes - Time Time Spent with patient: 25-34 minutes - Plan Summary Plan Summary: We are going to discontinue the diuretic. We will continue gentle hydration. Begin Synthroid for hypothyroidism. Awaiting psychiatry evaluation. Continue supportive care. Continue BiPAP and bronchodilators as needed. Okay to transfer to the stepdown unit with a sitter.
[2017-05-06] MEDS ORDERED: FUROSEMIDE INJ/PF 40 MG/4 ML SDV IV SCH (10:00)
[2017-05-06] MEDS: LEVOTHYROXINE SODIUM 0.05 MG TABLET PO SCH (10:23)
[2017-05-06] MEDS: CITALOPRAM HYDROBROMIDE 20 MG TABLET PO SCH (10:23)
[2017-05-06] MEDS: FAMOTIDINE 20 MG TABLET PO SCH (10:23)
[2017-05-06] MEDS: ENOXAPARIN SODIUM INJ 40 MG/0.4 ML DISP.SYRIN SUBCUT SCH (10:27)
[2017-05-06] MEDS: CEFTRIAXONE 1 GM/D5W RTU 1 GM/50 ML RTUPB IV SCH (10:29)
--- NOTE | 2017-05-06 11:04 | RADIOLOGY REPORT (SQ) ---
EXAM DESCRIPTION: KUB/ABDOMEN (SINGLE VIEW) COMPLETED DATE/TIME: 05/06/2017 10:10 am REASON FOR STUDY: impaction COMPARISON: Chest films 05/06/2017, 05/05/2017 Abdominal films 04/28/2007, 05/05/2017 CT abdomen pelvis 04/28/2007 NUMBER OF VIEWS: One view. TECHNIQUE: Supine radiographic image of the abdomen acquired. LIMITATIONS: None. FINDINGS: Trace right, small left pleural effusion with dense consolidation in the left retrocardiac region worrisome for pneumonia. BOWEL GAS PATTERN: Moderate stool throughout the colon in a grossly nonobstructive pattern. No dilat ed small bowel loops worrisome for small bowel obstruction. CALCIFICATIONS: No suspicious calcifications. SOFT TISSUES: No gross mass or suggestion of organomegaly. HARDWARE: Daniel catheter drains the bladder. Surgical clips right upper quadrant post cholecystectom y. BONES: No acute fracture. No worrisome bone lesions. OTHER: No other significant finding. IMPRESSION: Left lower lobe collapse and consolidation worrisome for pneumonia Grossly nonobstructive bowel gas pattern. Clips right upper quadrant post cholecystectomy. Daniel catheter in the bladder. TECHNICAL DOCUMENTATION: JOB ID: [id number] [employer]- All Rights Reserved
[2017-05-06] MEDS ORDERED: FLUTICASONE/SALMETEROL DISKUS 250-50 MCG/DOSE IH ONE (11:30)
[2017-05-06] MEDS: AZITHROMYCIN 500 MG in DEXTROSE 5%-WATER 250 ML IV SCH (12:01)
[2017-05-06] MEDS: NORMAL SALINE 1000 ML 1,000 ML IV PRN (12:06)
[2017-05-06 20:12] LABS: ARTERIAL BLOOD BASE EXCESS 4.8 mmol/L
[2017-05-06] MEDS ORDERED: IPRATROPIUM/ALBUTEROL 0.5-2.5 MG/3 ML AMPUL NEB PRN (22:22)
[2017-05-06 22:29] LABS: VENOUS BLOOD HCO3 40.9 mmol/L (20-32); VENOUS BLOOD PH 7.24 (7.30-7.42)
[2017-05-06 22:32] LABS: VENOUS BLOOD PCO2 97.8 mmHg (35-63)
[2017-05-06 22:42] LABS: ALANINE AMINOTRANSFERASE 39 U/L (9-52); ALBUMIN 2.8 g/dL (3.5-5.0); ALKALINE PHOSPHATASE 96 U/L (38-126); ANION GAP 5 (5-19); ASPARTATE AMINO TRANSFERASE 19 U/L (14-36); BILIRUBIN,DIRECT 1.3 mg/dL (0.0-0.4); BILIRUBIN,TOTAL 1.6 mg/dL (0.2-1.3); BLOOD UREA NITROGEN 23 mg/dL (7-20); CALCIUM 8.6 mg/dL (8.4-10.2); CARBON DIOXIDE 38 mmol/L (22-30); CHLORIDE 99 mmol/L (98-107); GLUCOSE 91 mg/dL (75-110); MAGNESIUM 1.7 mg/dL (1.6-2.3); POTASSIUM 4.3 mmol/L (3.6-5.0); SODIUM 141.5 mmol/L (137-145); TOTAL PROTEIN 5.5 g/dL (6.3-8.2)
--- NOTE | 2017-05-06 22:54 | RADIOLOGY REPORT (SQ) ---
EXAM DESCRIPTION: CHEST SINGLE VIEW COMPLETED DATE/TIME: 05/06/2017 10:41 pm REASON FOR STUDY: RESP DISTRESS COMPARISON: Earlier exam same date EXAM PARAMETERS: NUMBER OF VIEWS: One view. TECHNIQUE: Single frontal radiographic view of the chest acquired. RADIATION DOSE: NA LIMITATIONS: None. FINDINGS: LUNGS AND PLEURA: Mildly Increased bilateral pleural effusions and basilar subsegmental at electasis, left greater than right. Similar interstitial prominence. No pneumothorax. MEDIASTINUM AND HILAR STRUCTURES: Stable. HEART AND VASCULAR STRUCTURES: Stable. BONES: No acute findings. HARDWARE: Right subclavian central venous catheter tip overlies the SVC slightly below the level of t he munira, stable. OTHER: No other significant finding. IMPRESSION: Mildly Increased bilateral pleural effusions and basilar subsegmental atelectasis, left greater than right. Similar interstitial prominence. TECHNICAL DOCUMENTATION: JOB ID: [id number]
--- NOTE | 2017-05-06 23:08 | RADIOLOGY REPORT (SQ) ---
EXAM DESCRIPTION: CT HEAD WITHOUT COMPLETED DATE/TIME: 05/06/2017 10:52 pm REASON FOR STUDY: ams COMPARISON: None. TECHNIQUE: Axial images acquired through the brain without intravenous contrast. Images reviewed wi th bone, brain and subdural windows. Images stored on PACS. All CT scanners at this facility use dose modulation, iterative reconstruction, and/or weight based d osing when appropriate to reduce radiation dose to as low as reasonably achievable (ALARA). [facility]: Dose Right [facility]: CareDose [facility]: Dose Right [facility]: Teradose 4D [facility]: [employer] RADIATION DOSE: Up-to-date CT equipment and radiation dose reduction techniques were employed. CTDIv ol: 55.2 - 55.3 mGy. DLP: 1859 mGy-cm.mGy. LIMITATIONS: None. FINDINGS: VENTRICLES: Normal. CEREBRUM: No masses. No hemorrhage. No midline shift. Areas of low density in the white matter mos t likely due to chronic micro-vascular ischemic change. No evidence for acute infarction. CEREBELLUM: No masses. No hemorrhage. No alteration of density. No evidence for acute infarction. EXTRAAXIAL SPACES: Age-related involutional change. No fluid collections. No masses. ORBITS AND GLOBE: No intra- or extraconal masses. Normal contour of globe without masses. CALVARIUM: No fracture. PARANASAL SINUSES: No fluid or mucosal thickening. SOFT TISSUES: No mass or hematoma. OTHER: No other significant finding. IMPRESSION: No hemorrhage. Areas of low density in the white matter most likely due to chronic alexander ro-vascular ischemic change. TECHNICAL DOCUMENTATION: JOB ID: [id number] Quality ID # [id number]: Final reports with documentation of one or more dose reduction techniques (e.g., Au tomated exposure control, adjustment of the mA and/or kV according to patient size, use of iterative reconstruction technique) 2010 [facility]- All Rights Reserved
[2017-05-06 23:13] LABS: ABSOLUTE LYMPHOCYTES (AUTO) 0.9 10^3/uL (0.5-4.7); ABSOLUTE MONOCYTES (AUTO) 0.4 10^3/uL (0.1-1.4); ABSOLUTE NEUT (AUTO) 6.2 10^3/uL (1.7-8.2); BASOPHILS % (AUTO) 0.6 % (0-2); EOSINOPHILS % (AUTO) 0.2 % (0-6); HEMATOCRIT 45.7 % (36.0-47.0); HGB HCT DIFFERENCE -3.7; LYMPHOCYTES % (AUTO) 11.9 % (13-45); MEAN CORPUSCULAR HEMOGLOBIN 27.3 pg (27.0-33.4); MEAN CORPUSCULAR HGB CONC 30.7 g/dL (32.0-36.0); MEAN CORPUSCULAR VOLUME 89 fl (80-97); MONOCYTES % (AUTO) 5.3 % (3-13); RED BLOOD COUNT 5.12 10^6/uL (3.72-5.28); RED CELL DISTRIBUTION WIDTH 22.1 % (11.5-14.0); WHITE BLOOD COUNT 7.6 10^3/uL (4.0-10.5)
[2017-05-07] MEDS: NORMAL SALINE 1000 ML 1,000 ML IV PRN ×2 (00:12→18:15)
[2017-05-07] MEDS: CEFEPIME 1 GM/D5W RTU 1 GM/50 ML RTUPB IV SCH ×3 (00:13→22:07)
[2017-05-07] MEDS: FLUTICASONE/SALMETEROL DISKUS 250-50 MCG/DOSE IH SCH ×3 (00:15→22:13)
[2017-05-07] MEDS: FAMOTIDINE 20 MG TABLET PO SCH (00:15)
[2017-05-07 00:23] LABS: VENOUS BLOOD HCO3 32.3 mmol/L (20-32); VENOUS BLOOD PH 7.31 (7.30-7.42)
[2017-05-07 00:26] LABS: VENOUS BLOOD PCO2 65.7 mmHg (35-63)
--- NOTE | 2017-05-07 03:51 | Progress Note ---
Provider Note Provider Note: May 06, 2017: Approximately 10 PM, I was contacted by patient's floor nurse, stating that patient's temperature was 94. Orders given for Cristal hugger, blankets, and warmed IV fluids if necessary, to achieve a minimum temperature of 97.0F. I called the patient's floor nurse shortly thereafter. She stated that patient was less responsive than usual, and breathing only approximately 8 times per minute. Pressures and O2 saturation were acceptable, however. Rapid response was called, and I went to the patient's bedside shortly thereafter. Intensive care unit nurse was there, along with floor nursing staff. Daughter was likewise present. Patient was somewhat somnolent, although did awaken relatively easily. Remains somnolent, however with respiratory rate approximately 10. She was on BiPAP at that time. Acceptable Accu-Chek, and acceptable blood pressure and oxygen saturation. Floor nurse stated that patient was noted to be less responsive than usual at the start of the evening shift. Daughter confirmed that patient is indeed a full code. Patient was then transferred to the intensive care unit, with initial plans for endotracheal intubation. Daughter understood this could result in patient not being able to come off the ventilator. However, shortly after arrival in the intensive care unit, patient, while still fatigued and somewhat somnolent, was more alert, with a respiratory rate in the 12-16 range. Followed basic commands appropriately, including symmetric 5/5 handgrip and movement of toes. At this point in time, intubation was not felt necessary, patient was placed back on BiPAP along with Cristal hugger. Rationale for change in plans discussed with belkis, who was again at bedside. 40 minutes critical care time spent in evaluation management of patient, including direct patient evaluation, discussions with daughter and nursing staff , entering of multiple orders into the electronic health record, and review of lab and radiology results. Above discussed with day hospitalist team.
[2017-05-07 05:50] LABS: VENOUS BLOOD HCO3 41.6 mmol/L (20-32); VENOUS BLOOD PH 7.33 (7.30-7.42)
[2017-05-07 05:53] LABS: VENOUS BLOOD PCO2 80.1 mmHg (35-63)
[2017-05-07 06:03] LABS: BLOOD UREA NITROGEN 20 mg/dL (7-20); CALCIUM 8.1 mg/dL (8.4-10.2); CREATININE RESULT 0.38 mg/dL (0.52-1.25); GLUCOSE 80 mg/dL (75-110)
[2017-05-07 06:20] LABS: ANION GAP 6 (5-19); CARBON DIOXIDE 37 mmol/L (22-30); CHLORIDE 100 mmol/L (98-107); POTASSIUM 3.9 mmol/L (3.6-5.0)
--- NOTE | 2017-05-07 07:46 | PSYCHOLOGICAL NOTE ---
Psych Note - Psych Note Psych Note: SILVESTRE AG is a 61 year old female whose in [facility] of this year and since that time has been depressed. The patient over the last week has been lying in bed and not getting out or eating. Her daughter checked on her and called EMS. Patient is found to have pneumonia. Patient reports that she has had a nonproductive cough and has felt short of breath. She denies any chest pain. She is emaciated and has anasarca. She reports that she has been eating very little. According the daughter she has lost 30 or 40 pounds by her estimation. The patient reports she has been depressed and has had suicidal thoughts but no definitive plan. She has taken Wellbutrin and Celexa in the past but has not taken for the last week. Patient was was briefly in a step down unit; however, she is back in ICU today. Patient unable to engage in psychological evaluation at this time; Will follow
[2017-05-07 07:48] LABS: ARTERIAL BLOOD BASE EXCESS 8.4 mmol/L; ARTERIAL BLOOD O2 SATURATION 93.3 % (94-98)
--- NOTE | 2017-05-07 07:53 | EKG REPORT ---
SEVERITY:- ABNORMAL ECG - SINUS RHYTHM PROBABLE LEFT ATRIAL ABNORMALITY PROBABLE ANTEROSEPTAL INFARCT, AGE INDETERM : Confirmed by: Pepe Wiley MD 07-May-2017 07:52:51
[2017-05-07] MEDS ORDERED: FUROSEMIDE INJ/PF 40 MG/4 ML SDV IV ONE (10:45)
[2017-05-07 10:58] LABS: ABSOLUTE LYMPHOCYTES (AUTO) 0.7 10^3/uL (0.5-4.7); ABSOLUTE MONOCYTES (AUTO) 0.4 10^3/uL (0.1-1.4); RED BLOOD COUNT 5.01 10^6/uL (3.72-5.28)
[2017-05-07 11:03] LABS: PROTHROMBIN TIME 15.7 SEC (11.4-15.4)
[2017-05-07] MEDS: HYDROCORTISONE SOD SUCCINATE INJ/PF 100 MG/2 ML SDV IV SCH ×3 (11:06→22:56)
--- NOTE | 2017-05-07 11:07 | PDOC PROGRESS REPORT ---
Subjective Progress Note for:: 05/07/17 Subjective:: The patient developed hypothermia and respiratory discomfort. Reportedly remained lethargic and placed back on BiPAP and transferred back to the intensive care unit. No reported respiratory distress subsequently after the BiPAP. Patient reportedly more edematous. When called the patient will answer a few questions but go back to sleep. No reported diarrhea nausea or vomiting. Very poor oral intake. Physical Exam Vital Signs: Temp Pulse Resp BP Pulse Ox 97.0 F 90 10 L 113/68 99 05/07/17 10:01 05/07/17 10:00 05/07/17 10:01 05/07/17 10:00 05/07/17 10:01 Intake & Output 05/06/17 05/07/17 05/08/17 06:59 06:59 06:59 Intake Total 997 769 Output Total 845 640 120 Balance 152 129 -120 Weight 54.9 kg 54.1 kg General appearance: PRESENT: no acute distress, thin, other - On BiPAP Head exam: PRESENT: normocephalic Eye exam: PRESENT: conjunctiva pale Mouth exam: PRESENT: moist, neck supple Neck exam: ABSENT: JVD Respiratory exam: PRESENT: rhonchi - Bilateral. ABSENT: wheezes Cardiovascular exam: PRESENT: RRR. ABSENT: gallop GI/Abdominal exam: PRESENT: soft. ABSENT: distended, tenderness Extremities exam: PRESENT: +1 edema Neurological exam: PRESENT: altered Psychiatric exam: ABSENT: agitated Focused psych exam: ABSENT: restlessness Skin exam: PRESENT: other - Wounds without any foul-smelling drainage. ABSENT: cyanosis Results Laboratory Results: 05/06/17 05/06/17 05/06/17 19:50 22:18 22:18 WBC Cancelled RBC Cancelled Hgb Cancelled Hct Cancelled MCV Cancelled MCH Cancelled MCHC Cancelled RDW Cancelled Plt Count Cancelled Seg Neutrophils % Cancelled Lymphocytes % Cancelled Monocytes % Cancelled Eosinophils % Cancelled Basophils % Cancelled Absolute Neutrophils Cancelled Absolute Lymphocytes Cancelled Absolute Monocytes Cancelled Absolute Eosinophils Cancelled Absolute Basophils Cancelled Carbonic Acid 2.66 H HCO3/H2CO3 Ratio 13:1 ABG pH 7.23 L ABG pCO2 88.3 H* ABG pO2 100.1 H ABG HCO3 35.9 H ABG O2 Saturation 96.0 ABG Base Excess 4.8 VBG pH VBG pCO2 VBG HCO3 VBG Base Excess FiO2 40% Sodium 141.5 Potassium 4.3 Chloride 99 Carbon Dioxide 38 H Anion Gap 5 BUN 23 H Creatinine 0.40 L Est GFR ( Amer) > 60 Est GFR (Non-Af Amer) > 60 Glucose 91 Calcium 8.6 Magnesium 1.7 Total Bilirubin 1.6 H AST 19 ALT 39 Alkaline Phosphatase 96 Total Protein 5.5 L Albumin 2.8 L 05/06/17 05/06/17 05/07/17 22:18 23:03 00:01 WBC 7.6 RBC 5.12 Hgb 14.0 D Hct 45.7 MCV 89 MCH 27.3 MCHC 30.7 L RDW 22.1 H Plt Count 168 Seg Neutrophils % 82.0 H Lymphocytes % 11.9 L Monocytes % 5.3 Eosinophils % 0.2 Basophils % 0.6 Absolute Neutrophils 6.2 Absolute Lymphocytes 0.9 Absolute Monocytes 0.4 Absolute Eosinophils 0.0 Absolute Basophils 0.0 Carbonic Acid HCO3/H2CO3 Ratio ABG pH ABG pCO2 ABG pO2 ABG HCO3 ABG O2 Saturation ABG Base Excess VBG pH 7.24 L 7.31 VBG pCO2 97.8 H* 65.7 H* VBG HCO3 40.9 H 32.3 H VBG Base Excess 9.0 4.0 FiO2 Sodium Potassium Chloride Carbon Dioxide Anion Gap BUN Creatinine Est GFR ( Amer) Est GFR (Non-Af Amer) Glucose Calcium Magnesium Total Bilirubin AST ALT Alkaline Phosphatase Total Protein Albumin 05/07/17 05/07/17 05/07/17 05:40 05:40 07:40 WBC RBC Hgb Hct MCV MCH MCHC RDW Plt Count Seg Neutrophils % Lymphocytes % Monocytes % Eosinophils % Basophils % Absolute Neutrophils Absolute Lymphocytes Absolute Monocytes Absolute Eosinophils Absolute Basophils Carbonic Acid 2.21 H HCO3/H2CO3 Ratio 16:1 ABG pH 7.33 L ABG pCO2 73.4 H* ABG pO2 74.4 L ABG HCO3 37.4 H ABG O2 Saturation 93.3 L ABG Base Excess 8.4 VBG pH 7.33 VBG pCO2 80.1 H* VBG HCO3 41.6 H VBG Base Excess 12.0 FiO2 30% Sodium 143.0 Potassium 3.9 Chloride 100 Carbon Dioxide 37 H Anion Gap 6 BUN 20 Creatinine 0.38 L Est GFR ( Amer) > 60 Est GFR (Non-Af Amer) > 60 Glucose 80 Calcium 8.1 L Magnesium Total Bilirubin AST ALT Alkaline Phosphatase Total Protein Albumin 05/05/17 12:28 Catheterized Urine Urine Culture - Final NO GROWTH 2 DAYS 05/03/17 05/06/17 19:40 22:18 Troponin I 0.024 NT-Pro-B Natriuret Pep 6660 H Impressions: Head CT 05/06/17 00:00 IMPRESSION: No hemorrhage. Areas of low density in the white matter most likely due to chronic micro-vascular ischemic change. KUB X-Ray 05/06/17 00:00 IMPRESSION: Left lower lobe collapse and consolidation worrisome for pneumonia Grossly nonobstructive bowel gas pattern. Clips right upper quadrant post cholecystectomy. Daniel catheter in the bladder. Chest X-Ray 05/06/17 06:00 IMPRESSION: Small bilateral pleural effusions with bibasilar airspace opacities , may represent atelectasis or pneumonia. Emphysema. Assessment & Plan - Diagnosis (1) Acute hypercapnic respiratory failure Is this a current diagnosis for this admission?: Yes (2) Pneumonia Qualifiers: Pneumonia type: due to unspecified organism Is this a current diagnosis for this admission?: Yes (3) UTI (urinary tract infection) Qualifiers: Urinary tract infection type: site unspecified Hematuria presence: without hematuria Qualified Code(s): N39.0 - Urinary tract infection, site not specified Is this a current diagnosis for this admission?: Yes (4) Hypothyroidism Qualifiers: Hypothyroidism type: unspecified Qualified Code(s): E03.9 - Hypothyroidism , unspecified Is this a current diagnosis for this admission?: Yes (5) Decubitus ulcer Qualifiers: Pressure ulcer location: thigh Pressure ulcer stage: stage 2 Laterality: left Qualified Code(s): L89.222 - Pressure ulcer of left hip, stage 2 Is this a current diagnosis for this admission?: Yes (6) Depression Qualifiers: Depression Type: unspecified Qualified Code(s): F32.9 - Major depressive disorder, single episode, unspecified Is this a current diagnosis for this admission?: Yes (7) Hypertension Qualifiers: Hypertension type: essential hypertension Qualified Code(s): I10 - Essential (primary) hypertension Is this a current diagnosis for this admission?: Yes (8) Malnutrition Qualifiers: Malnutrition type: unspecified type Qualified Code(s): E46 - Unspecified protein-calorie malnutrition Is this a current diagnosis for this admission?: Yes - Time Time Spent with patient: 25-34 minutes - Plan Summary Plan Summary: Possible underlying myxedema. We will begin IV steroids and IV Synthroid. We will give a loading dose of 200 mcg after steroid is given. We will continue to monitor in the ICU. We will begin TPN. Resume diuretics. Continue current antibiotics. Continue supportive care.
[2017-05-07] MEDS: CITALOPRAM HYDROBROMIDE 20 MG TABLET PO SCH (11:08)
[2017-05-07] MEDS: ENOXAPARIN SODIUM INJ 40 MG/0.4 ML DISP.SYRIN SUBCUT SCH (11:08)
[2017-05-07] MEDS: LEVOTHYROXINE SODIUM 0.05 MG TABLET PO SCH (11:08)
[2017-05-07 11:21] LABS: ALANINE AMINOTRANSFERASE 27 U/L (9-52); ALBUMIN 2.5 g/dL (3.5-5.0); ALKALINE PHOSPHATASE 89 U/L (38-126); ANION GAP 6 (5-19); ASPARTATE AMINO TRANSFERASE 16 U/L (14-36); BILIRUBIN,DIRECT 1.2 mg/dL (0.0-0.4); BILIRUBIN,TOTAL 1.6 mg/dL (0.2-1.3); BLOOD UREA NITROGEN 20 mg/dL (7-20); CALCIUM 8.3 mg/dL (8.4-10.2); CARBON DIOXIDE 38 mmol/L (22-30); CHLORIDE 100 mmol/L (98-107); GLUCOSE 81 mg/dL (75-110); MAGNESIUM 1.8 mg/dL (1.6-2.3); PHOSPHORUS 2.2 mg/dL (2.5-4.5); POTASSIUM 3.9 mmol/L (3.6-5.0); SODIUM 143.9 mmol/L (137-145); TOTAL PROTEIN 4.9 g/dL (6.3-8.2); TRIGLYCERIDES 109 mg/dL (<150)
[2017-05-07 11:28] LABS: PREALBUMIN 6.6 mg/dL (17.6-36.0)
[2017-05-07] MEDS ORDERED: DEXTROSE 10%-WATER 1,000 ML IV PRN (11:39)
[2017-05-07] MEDS ORDERED: GLUCAGON,HUMAN RECOMB 1 MG INJ IM PRN (11:39)
[2017-05-07] MEDS ORDERED: DEXTROSE 50%-WATER SYRINGE 25 GM/50 ML DOSE IV PRN (11:39)
[2017-05-07] MEDS ORDERED: DEXTROSE 40% GEL 15 GM TUBE X 2 PO PRN (11:39)
[2017-05-07] MEDS ORDERED: DEXTROSE 40% GEL 15 GM TUBE PO PRN (11:39)
[2017-05-07] MEDS ORDERED: DEXTROSE 50%-WATER SYRINGE 12.5 GM/25 ML DOSE IV PRN (11:39)
[2017-05-07] MEDS: AZITHROMYCIN 500 MG in DEXTROSE 5%-WATER 250 ML IV SCH (11:54)
[2017-05-07 11:56] LABS: ABSOLUTE NEUT (AUTO) 5.6 10^3/uL (1.7-8.2); BASOPHILS % (AUTO) 0.5 % (0-2); EOSINOPHILS % (AUTO) 0.1 % (0-6); HEMATOCRIT 44.5 % (36.0-47.0); HEMOGLOBIN 13.3 g/dL (12.0-15.5); HGB HCT DIFFERENCE -4.6; LYMPHOCYTES % (AUTO) 10.4 % (13-45); MEAN CORPUSCULAR HEMOGLOBIN 26.6 pg (27.0-33.4); MEAN CORPUSCULAR VOLUME 89 fl (80-97); MONOCYTES % (AUTO) 5.5 % (3-13); RED CELL DISTRIBUTION WIDTH 22.6 % (11.5-14.0); SEGMENTED NEUTROPHILS % (AUTO) 83.5 % (42-78); WHITE BLOOD COUNT 6.7 10^3/uL (4.0-10.5)
[2017-05-07] MEDS ORDERED: LEVOTHYROXINE SODIUM INJ/PF 0.1 MG SDV IV SCH (16:00)
[2017-05-07] MEDS ORDERED: LEVOTHYROXINE SODIUM INJ/PF 0.1 MG SDV IV ONE (16:30)
[2017-05-07] MEDS: AMINO ACIDS 5%/D25W 1,000 ML IV PRN (18:43)
[2017-05-08] MEDS: HYDROCORTISONE SOD SUCCINATE INJ/PF 100 MG/2 ML SDV IV SCH ×4 (05:24→22:33)
[2017-05-08 05:50] LABS: ALANINE AMINOTRANSFERASE 29 U/L (9-52); ALBUMIN 2.4 g/dL (3.5-5.0); ALKALINE PHOSPHATASE 72 U/L (38-126); ASPARTATE AMINO TRANSFERASE 14 U/L (14-36); BILIRUBIN,DIRECT 0.9 mg/dL (0.0-0.4); BILIRUBIN,TOTAL 1.3 mg/dL (0.2-1.3); BLOOD UREA NITROGEN 22 mg/dL (7-20); CALCIUM 7.9 mg/dL (8.4-10.2); CHLORIDE 96 mmol/L (98-107); CREATININE RESULT 0.41 mg/dL (0.52-1.25); GLUCOSE 252 mg/dL (75-110); PHOSPHORUS 2.2 mg/dL (2.5-4.5); POTASSIUM 3.5 mmol/L (3.6-5.0); TOTAL PROTEIN 4.8 g/dL (6.3-8.2)
[2017-05-08 05:57] LABS: PREALBUMIN 6.6 mg/dL (17.6-36.0)
[2017-05-08 06:14] LABS: ANION GAP 4 (5-19); SODIUM 143.1 mmol/L (137-145)
[2017-05-08 06:16] LABS: CARBON DIOXIDE 43 mmol/L (22-30)
[2017-05-08] MEDS: INSULIN REG, HUMAN 100 UNIT/ML 3 ML VIAL (PYX) SUBCUT PRN ×2 (06:47→18:29)
--- NOTE | 2017-05-08 08:11 | PDOC PROGRESS REPORT ---
Subjective Progress Note for:: 05/08/17 Subjective:: More awake and alert this morning. No resp distress, temp spikes, N/V/diarrhea. Reportedly patient does not want to talk deliberately. Reportedly wants to be DNR but patient did not verify that this am. No diarrhea. Physical Exam Vital Signs: Temp Pulse Resp BP Pulse Ox 97.5 F 87 8 L 117/75 96 05/08/17 06:01 05/07/17 20:00 05/08/17 06:01 05/08/17 06:01 05/08/17 06:01 Intake & Output 05/07/17 05/08/17 05/09/17 06:59 06:59 06:59 Intake Total 769 2125 Output Total 640 2380 Balance 129 -255 Weight 54.1 kg 53.4 kg General appearance: PRESENT: no acute distress, thin Head exam: PRESENT: normocephalic Eye exam: PRESENT: EOMI Mouth exam: PRESENT: moist, neck supple Neck exam: ABSENT: JVD Respiratory exam: PRESENT: clear to auscultation gilles - anteriorly, rhonchi - few. ABSENT: wheezes Cardiovascular exam: PRESENT: RRR. ABSENT: gallop GI/Abdominal exam: PRESENT: soft. ABSENT: distended Extremities exam: PRESENT: +1 edema Neurological exam: PRESENT: awake Psychiatric exam: ABSENT: agitated Focused psych exam: ABSENT: restlessness Skin exam: PRESENT: dry. ABSENT: cyanosis Results Laboratory Results: 05/07/17 10:40 05/08/17 05:25 05/07/17 05/07/17 05/08/17 10:40 10:40 05:25 WBC 6.7 RBC 5.01 Hgb 13.3 Hct 44.5 MCV 89 MCH 26.6 L MCHC 30.0 L RDW 22.6 H Plt Count 141 L Seg Neutrophils % 83.5 H Lymphocytes % 10.4 L Monocytes % 5.5 Eosinophils % 0.1 Basophils % 0.5 Absolute Neutrophils 5.6 Absolute Lymphocytes 0.7 Absolute Monocytes 0.4 Absolute Eosinophils 0.0 Absolute Basophils 0.0 Sodium 143.9 143.1 Potassium 3.9 3.5 L Chloride 100 96 L Carbon Dioxide 38 H 43 H* Anion Gap 6 4 L BUN 20 22 H Creatinine 0.40 L 0.41 L Est GFR ( Amer) > 60 > 60 Est GFR (Non-Af Amer) > 60 > 60 Glucose 81 252 H Calcium 8.3 L 7.9 L Phosphorus 2.2 L 2.2 L Magnesium 1.8 Total Bilirubin 1.6 H 1.3 AST 16 14 ALT 27 29 Alkaline Phosphatase 89 72 Total Protein 4.9 L 4.8 L Albumin 2.5 L 2.4 L Prealbumin 6.6 L 6.6 L Triglycerides 109 05/05/17 12:28 Catheterized Urine Urine Culture - Final NO GROWTH 2 DAYS 05/03/17 05/06/17 19:40 22:18 Troponin I 0.024 NT-Pro-B Natriuret Pep 6660 H Impressions: Head CT 05/06/17 00:00 IMPRESSION: No hemorrhage. Areas of low density in the white matter most likely due to chronic micro-vascular ischemic change. KUB X-Ray 05/06/17 00:00 IMPRESSION: Left lower lobe collapse and consolidation worrisome for pneumonia Grossly nonobstructive bowel gas pattern. Clips right upper quadrant post cholecystectomy. Daniel catheter in the bladder. Chest X-Ray 05/06/17 06:00 IMPRESSION: Small bilateral pleural effusions with bibasilar airspace opacities , may represent atelectasis or pneumonia. Emphysema. Assessment & Plan - Diagnosis (1) Acute hypercapnic respiratory failure Is this a current diagnosis for this admission?: Yes (2) Pneumonia Qualifiers: Pneumonia type: due to unspecified organism Is this a current diagnosis for this admission?: Yes (3) UTI (urinary tract infection) Qualifiers: Urinary tract infection type: site unspecified Hematuria presence: without hematuria Qualified Code(s): N39.0 - Urinary tract infection, site not specified Is this a current diagnosis for this admission?: Yes (4) Hypothyroidism Qualifiers: Hypothyroidism type: unspecified Qualified Code(s): E03.9 - Hypothyroidism , unspecified Is this a current diagnosis for this admission?: Yes (5) Decubitus ulcer Qualifiers: Pressure ulcer location: thigh Pressure ulcer stage: stage 2 Laterality: left Qualified Code(s): L89.222 - Pressure ulcer of left hip, stage 2 Is this a current diagnosis for this admission?: Yes (6) Depression Qualifiers: Depression Type: unspecified Qualified Code(s): F32.9 - Major depressive disorder, single episode, unspecified Is this a current diagnosis for this admission?: Yes (7) Hypertension Qualifiers: Hypertension type: essential hypertension Qualified Code(s): I10 - Essential (primary) hypertension Is this a current diagnosis for this admission?: Yes (8) Malnutrition Qualifiers: Malnutrition type: unspecified type Qualified Code(s): E46 - Unspecified protein-calorie malnutrition Is this a current diagnosis for this admission?: Yes - Time Time Spent with patient: 25-34 minutes - Plan Summary Plan Summary: Treat for myxedema. Iv synthroid, d/c oral form. Cont. steropids and antibiotics , follow cultures, TPN. wean BIPAP. D/C main IVF.Replace Declan
[2017-05-08] MEDS: POTASSI CL 20 MEQ/50 ML RIDER 20 MEQ/50 ML RTUPB IV SCH ×3 (09:06→12:50)
[2017-05-08] MEDS: CEFEPIME 1 GM/D5W RTU 1 GM/50 ML RTUPB IV SCH ×2 (09:07→22:33)
[2017-05-08] MEDS: CITALOPRAM HYDROBROMIDE 20 MG TABLET PO SCH (09:13)
[2017-05-08] MEDS: FLUTICASONE/SALMETEROL DISKUS 250-50 MCG/DOSE IH SCH ×2 (09:14→22:45)
[2017-05-08] MEDS: AZITHROMYCIN 500 MG in DEXTROSE 5%-WATER 250 ML IV SCH (09:14)
[2017-05-08 09:56] LABS: ARTERIAL BLOOD BASE EXCESS 14.6 mmol/L; ARTERIAL BLOOD O2 SATURATION 94.6 % (94-98)
[2017-05-08 09:57] LABS: ABSOLUTE LYMPHOCYTES (AUTO) 0.3 10^3/uL (0.5-4.7); ABSOLUTE MONOCYTES (AUTO) 0.3 10^3/uL (0.1-1.4); ABSOLUTE NEUT (AUTO) 4.9 10^3/uL (1.7-8.2); BASOPHILS % (AUTO) 0.3 % (0-2); HEMATOCRIT 44.1 % (36.0-47.0); HEMOGLOBIN 13.8 g/dL (12.0-15.5); HGB HCT DIFFERENCE -2.7; LYMPHOCYTES % (AUTO) 5.3 % (13-45); MEAN CORPUSCULAR HEMOGLOBIN 27.3 pg (27.0-33.4); MEAN CORPUSCULAR HGB CONC 31.4 g/dL (32.0-36.0); MEAN CORPUSCULAR VOLUME 87 fl (80-97); MONOCYTES % (AUTO) 4.7 % (3-13); RED BLOOD COUNT 5.06 10^6/uL (3.72-5.28); RED CELL DISTRIBUTION WIDTH 21.9 % (11.5-14.0); SEGMENTED NEUTROPHILS % (AUTO) 89.7 % (42-78); WHITE BLOOD COUNT 5.5 10^3/uL (4.0-10.5)
[2017-05-08] MEDS ORDERED: FUROSEMIDE INJ/PF 40 MG/4 ML SDV IV SCH (10:00)
[2017-05-08] MEDS ORDERED: LEVOTHYROXINE SODIUM INJ/PF 0.1 MG SDV IV SCH (10:00)
[2017-05-08] MEDS: ENOXAPARIN SODIUM INJ 40 MG/0.4 ML DISP.SYRIN SUBCUT SCH (10:09)
--- NOTE | 2017-05-08 15:14 | PSYCHOLOGICAL NOTE ---
Psych Note - Psych Note Psych Note: SILVESTRE AG is a 61 year old female whose in [facility] of this year and since that time has been depressed. The patient over the last week has been lying in bed and not getting out or eating. Her daughter checked on her and called EMS. Patient is found to have pneumonia. Patient reports that she has had a nonproductive cough and has felt short of breath. She denies any chest pain. She is emaciated and has anasarca. She reports that she has been eating very little. According the daughter she has lost 30 or 40 pounds by her estimation. The patient reports she has been depressed and has had suicidal thoughts but no definitive plan. She has taken Wellbutrin and Celexa in the past but has not taken for the last week. Clinician attempted to engage patient in evaluation. Patient was able to correctly identify that she was in a hospital in [place], [place]. Patient was unable or unwilling to communicate further. Affect was flat. Conversational speech was soft and consisted of only one or two words (i.e. yes...hospital....[place], [place]). Patient appeared to have a difficult time keeping her eyes open. Patient is noted to verbalize depression and suicidal thoughts upon admission and had demonstrated decline in self care ( evidenced by weight loss, emaciated, stopped taking medications and stopped being active in life). Patient has continued to demonstrate a concerning decline in emotional wellbeing since being admitted; evidenced by her refusal to verbally engage with any staff or family. 311 (F32.9) Unspecified Depressive Disorder Bereavement Will follow; re-evaluation will occur.
--- NOTE | 2017-05-08 17:21 | RADIOLOGY REPORT (SQ) ---
EXAM DESCRIPTION: CHEST SINGLE VIEW COMPLETED DATE/TIME: 05/08/2017 5:00 pm REASON FOR STUDY: pneumonia, decreased breath sounds over right lung COMPARISON: 05/06/2017 EXAM PARAMETERS: NUMBER OF VIEWS: One view. TECHNIQUE: Single frontal radiographic view of the chest acquired. RADIATION DOSE: NA LIMITATIONS: None. FINDINGS: LUNGS AND PLEURA: Small pleural effusions. Opacification in the retrocardiac area on the left. Ill-defined opacification in the right base. MEDIASTINUM AND HILAR STRUCTURES: No masses. Contour normal. HEART AND VASCULAR STRUCTURES: Heart normal in size. Normal vasculature. BONES: No acute findings. HARDWARE: Right subclavian catheter with the tip near the right atrium. OTHER: No other significant finding. IMPRESSION: Small bilateral pleural effusions. Left lower lobe pneumonia. Limited right lower lobe pneumonia cannot be excluded. TECHNICAL DOCUMENTATION: JOB ID: [id number]
[2017-05-08] MEDS: AMINO ACIDS 5%/D25W 1,000 ML IV PRN (18:19)
[2017-05-08] MEDS: VANCOMYCIN HCL 1,000 MG in DEXTROSE 5%-WATER 250 ML IV SCH (18:26)
[2017-05-08] MEDS ORDERED: COLLAGENASE CLOSTRIDIUM HIST. OINT 30 GM TOP ONE (18:30)
[2017-05-09] MEDS: HYDROCORTISONE SOD SUCCINATE INJ/PF 100 MG/2 ML SDV IV SCH ×4 (05:21→22:26)
[2017-05-09] MEDS: VANCOMYCIN HCL 1,000 MG in DEXTROSE 5%-WATER 250 ML IV SCH ×2 (05:23→17:01)
[2017-05-09 05:46] LABS: ALANINE AMINOTRANSFERASE 28 U/L (9-52); ALBUMIN 2.5 g/dL (3.5-5.0); ALKALINE PHOSPHATASE 71 U/L (38-126); ASPARTATE AMINO TRANSFERASE 16 U/L (14-36); BILIRUBIN,DIRECT 0.8 mg/dL (0.0-0.4); BILIRUBIN,TOTAL 1.2 mg/dL (0.2-1.3); BLOOD UREA NITROGEN 19 mg/dL (7-20); CALCIUM 7.7 mg/dL (8.4-10.2); CHLORIDE 90 mmol/L (98-107); CREATININE RESULT 0.36 mg/dL (0.52-1.25); GLUCOSE 186 mg/dL (75-110); POTASSIUM 3.3 mmol/L (3.6-5.0); SODIUM 143.4 mmol/L (137-145); TOTAL PROTEIN 4.9 g/dL (6.3-8.2)
[2017-05-09 06:16] LABS: ANION GAP 3 (5-19); CARBON DIOXIDE 50 mmol/L (22-30)
[2017-05-09] MEDS ORDERED: FUROSEMIDE INJ/PF 40 MG/4 ML SDV IV SCH (09:20)
--- NOTE | 2017-05-09 09:28 | PDOC PROGRESS REPORT ---
Subjective Progress Note for:: 05/09/17 Subjective:: The patient is more awake and alert and responsive this morning. Oxygen saturation has been good on 2 L. It seems the patient has chronic hypercarbia at the beginning. No reported temperature spikes, respiratory distress, nausea or vomiting. Patient said that she does not feel well but could not elaborate. Physical Exam Vital Signs: Temp Pulse Resp BP Pulse Ox 96.3 F L 95 9 L 102/62 95 05/09/17 06:02 05/09/17 08:00 05/09/17 06:02 05/09/17 06:02 05/09/17 06:02 Intake & Output 05/08/17 05/09/17 05/10/17 06:59 06:59 06:59 Intake Total 2125 2185 Output Total 2380 3510 60 Balance -255 -1325 -60 Weight 53.4 kg 55.7 kg General appearance: PRESENT: mild distress, thin Head exam: PRESENT: normocephalic Eye exam: PRESENT: conjunctiva pale, EOMI Mouth exam: PRESENT: moist, neck supple Neck exam: ABSENT: JVD Respiratory exam: PRESENT: decreased breath sounds - Bilateral, rales - Lower lung roberson posteriorly. ABSENT: rhonchi, wheezes Cardiovascular exam: PRESENT: RRR. ABSENT: gallop GI/Abdominal exam: PRESENT: soft. ABSENT: distended, tenderness Extremities exam: PRESENT: +1 edema Neurological exam: PRESENT: alert, awake Psychiatric exam: ABSENT: agitated Focused psych exam: ABSENT: restlessness Skin exam: ABSENT: cyanosis Results Laboratory Results: 05/08/17 09:30 05/09/17 05:15 05/08/17 05/08/17 05/09/17 09:30 09:30 05:15 WBC 5.5 RBC 5.06 Hgb 13.8 Hct 44.1 MCV 87 MCH 27.3 MCHC 31.4 L RDW 21.9 H Plt Count 147 L Seg Neutrophils % 89.7 H Lymphocytes % 5.3 L Monocytes % 4.7 Eosinophils % 0.0 Basophils % 0.3 Absolute Neutrophils 4.9 Absolute Lymphocytes 0.3 L Absolute Monocytes 0.3 Absolute Eosinophils 0.0 Absolute Basophils 0.0 Carbonic Acid 2.40 H HCO3/H2CO3 Ratio 18:1 ABG pH 7.36 ABG pCO2 79.6 H* ABG pO2 78.6 L ABG HCO3 44.3 H ABG O2 Saturation 94.6 ABG Base Excess 14.6 FiO2 2L Sodium 143.4 Potassium 3.3 L Chloride 90 L Carbon Dioxide 50 H* Anion Gap 3 L BUN 19 Creatinine 0.36 L Est GFR ( Amer) > 60 Est GFR (Non-Af Amer) > 60 Glucose 186 H Calcium 7.7 L Phosphorus 2.0 L Total Bilirubin 1.2 AST 16 ALT 28 Alkaline Phosphatase 71 Total Protein 4.9 L Albumin 2.5 L Prealbumin 9.0 L 05/03/17 19:40 Blood Blood Culture - Final NO GROWTH IN 5 DAYS 05/03/17 05/06/17 19:40 22:18 Troponin I 0.024 NT-Pro-B Natriuret Pep 6660 H Impressions: Head CT 05/06/17 00:00 IMPRESSION: No hemorrhage. Areas of low density in the white matter most likely due to chronic micro-vascular ischemic change. KUB X-Ray 05/06/17 00:00 IMPRESSION: Left lower lobe collapse and consolidation worrisome for pneumonia Grossly nonobstructive bowel gas pattern. Clips right upper quadrant post cholecystectomy. Daniel catheter in the bladder. Chest X-Ray 05/08/17 00:00 IMPRESSION: Small bilateral pleural effusions. Left lower lobe pneumonia. Limited right lower lobe pneumonia cannot be excluded. Assessment & Plan - Diagnosis (1) Acute hypercapnic respiratory failure Is this a current diagnosis for this admission?: Yes (2) Pneumonia Qualifiers: Pneumonia type: due to unspecified organism Is this a current diagnosis for this admission?: Yes (3) UTI (urinary tract infection) Qualifiers: Urinary tract infection type: site unspecified Hematuria presence: without hematuria Qualified Code(s): N39.0 - Urinary tract infection, site not specified Is this a current diagnosis for this admission?: Yes (4) Hypothyroidism Qualifiers: Hypothyroidism type: unspecified Qualified Code(s): E03.9 - Hypothyroidism , unspecified Is this a current diagnosis for this admission?: Yes (5) Decubitus ulcer Qualifiers: Pressure ulcer location: thigh Pressure ulcer stage: stage 2 Laterality: left Qualified Code(s): L89.222 - Pressure ulcer of left hip, stage 2 Is this a current diagnosis for this admission?: Yes (6) Depression Qualifiers: Depression Type: unspecified Qualified Code(s): F32.9 - Major depressive disorder, single episode, unspecified Is this a current diagnosis for this admission?: Yes (7) Hypertension Qualifiers: Hypertension type: essential hypertension Qualified Code(s): I10 - Essential (primary) hypertension Is this a current diagnosis for this admission?: Yes (8) Malnutrition Qualifiers: Malnutrition type: unspecified type Qualified Code(s): E46 - Unspecified protein-calorie malnutrition Is this a current diagnosis for this admission?: Yes - Time Time Spent with patient: 25-34 minutes - Plan Summary Plan Summary: We are going to replace the patient's electrolytes. We will decrease oxygen to 1-1/2 L nasal cannula without titrating upwards. In the meantime patient may have underlying myxedema, mental status improved with steroids to get her with IV Synthroid, we will transition to oral Synthroid. We will decrease the Lasix and begin acetazolamide and monitor her BMP. We will wean TPN off and begin diet. We will transfer to stepdown unit.
[2017-05-09] MEDS: ENOXAPARIN SODIUM INJ 40 MG/0.4 ML DISP.SYRIN SUBCUT SCH (09:41)
[2017-05-09] MEDS: CEFEPIME 1 GM/D5W RTU 1 GM/50 ML RTUPB IV SCH ×2 (09:42→21:11)
[2017-05-09] MEDS: COLLAGENASE CLOSTRIDIUM HIST. OINT 30 GM TOP SCH (09:43)
[2017-05-09] MEDS: CITALOPRAM HYDROBROMIDE 20 MG TABLET PO SCH (09:43)
[2017-05-09] MEDS: LEVOTHYROXINE SODIUM 0.05 MG TABLET PO SCH (09:43)
[2017-05-09] MEDS: POTASSIUM CHLORIDE 10 MEQ TABLET.SA PO SCH ×2 (09:43→13:52)
[2017-05-09] MEDS ORDERED: FUROSEMIDE INJ/PF 20 MG/2 ML SDV IV SCH (10:00)
[2017-05-09] MEDS: ACETAZOLAMIDE 250 MG TABLET PO SCH ×2 (13:53→21:10)
[2017-05-09] MEDS: FLUTICASONE/SALMETEROL DISKUS 250-50 MCG/DOSE IH SCH ×2 (14:35→21:10)
[2017-05-09] MEDS: INSULIN REG, HUMAN 100 UNIT/ML 3 ML VIAL (PYX) SUBCUT PRN (17:59)
[2017-05-10] MEDS: HYDROCORTISONE SOD SUCCINATE INJ/PF 100 MG/2 ML SDV IV SCH ×4 (05:37→23:15)
[2017-05-10] MEDS: NORMAL SALINE INJ/PF 0.9% 10 ML SDV IV PRN (05:37)
[2017-05-10] MEDS: ACETAZOLAMIDE 250 MG TABLET PO SCH ×3 (05:38→21:46)
[2017-05-10] MEDS: VANCOMYCIN HCL 1,000 MG in DEXTROSE 5%-WATER 250 ML IV SCH (05:38)
[2017-05-10 06:07] LABS: BLOOD UREA NITROGEN 19 mg/dL (7-20); CALCIUM 7.9 mg/dL (8.4-10.2); CHLORIDE 89 mmol/L (98-107); GLUCOSE 80 mg/dL (75-110); POTASSIUM 3.4 mmol/L (3.6-5.0)
[2017-05-10 06:32] LABS: SODIUM 143.9 mmol/L (137-145)
[2017-05-10 06:41] LABS: ANION GAP 3 (5-19); CARBON DIOXIDE 52 mmol/L (22-30)
--- NOTE | 2017-05-10 08:20 | PDOC PROGRESS REPORT ---
Subjective Progress Note for:: 05/10/17 Subjective:: Patient is more awake and alert. Patient is able to engage in conversation this time. Patient however very slow to respond. Affect remains flat. Temperature reportedly low at times but no reported bradycardia or tachycardia. Patient denies having any diarrhea. Complains of abdominal discomfort however. Physical Exam Vital Signs: Temp Pulse Resp BP Pulse Ox 96.6 F L 92 13 115/77 94 05/10/17 07:19 05/09/17 19:00 05/10/17 07:19 05/10/17 07:19 05/10/17 07:19 Intake & Output 05/09/17 05/10/17 05/11/17 06:59 06:59 06:59 Intake Total 2185 1524 Output Total 3510 2855 Balance -1325 -1331 Weight 55.7 kg 49.2 kg General appearance: PRESENT: no acute distress, thin Head exam: PRESENT: normocephalic Eye exam: PRESENT: EOMI Mouth exam: PRESENT: moist, neck supple Neck exam: ABSENT: JVD Respiratory exam: PRESENT: rhonchi - Occasional bilateral. ABSENT: wheezes Cardiovascular exam: PRESENT: RRR. ABSENT: gallop GI/Abdominal exam: PRESENT: hyperactive bowel sounds. ABSENT: distended, soft Extremities exam: PRESENT: +1 edema Neurological exam: PRESENT: alert, awake Skin exam: ABSENT: cyanosis Results Laboratory Results: 05/08/17 09:30 05/10/17 05:40 05/10/17 05:40 Sodium 143.9 Potassium 3.4 L Chloride 89 L Carbon Dioxide 52 H* Anion Gap 3 L BUN 19 Creatinine 0.40 L Est GFR ( Amer) > 60 Est GFR (Non-Af Amer) > 60 Glucose 80 Calcium 7.9 L 05/07/17 09:30 Ankle - Left Gram Stain - Final 05/07/17 09:30 Knee - Right Gram Stain - Final 05/07/17 09:30 Knee - Left Gram Stain - Final 05/03/17 05/06/17 19:40 22:18 Troponin I 0.024 NT-Pro-B Natriuret Pep 6660 H Impressions: Head CT 05/06/17 00:00 IMPRESSION: No hemorrhage. Areas of low density in the white matter most likely due to chronic micro-vascular ischemic change. KUB X-Ray 05/06/17 00:00 IMPRESSION: Left lower lobe collapse and consolidation worrisome for pneumonia Grossly nonobstructive bowel gas pattern. Clips right upper quadrant post cholecystectomy. Daniel catheter in the bladder. Chest X-Ray 05/08/17 00:00 IMPRESSION: Small bilateral pleural effusions. Left lower lobe pneumonia. Limited right lower lobe pneumonia cannot be excluded. Assessment & Plan - Diagnosis (1) Acute hypercapnic respiratory failure Is this a current diagnosis for this admission?: Yes (2) Pneumonia Qualifiers: Pneumonia type: due to unspecified organism Is this a current diagnosis for this admission?: Yes (3) UTI (urinary tract infection) Qualifiers: Urinary tract infection type: site unspecified Hematuria presence: without hematuria Qualified Code(s): N39.0 - Urinary tract infection, site not specified Is this a current diagnosis for this admission?: Yes (4) Hypothyroidism Qualifiers: Hypothyroidism type: unspecified Qualified Code(s): E03.9 - Hypothyroidism , unspecified Is this a current diagnosis for this admission?: Yes (5) Decubitus ulcer Qualifiers: Pressure ulcer location: thigh Pressure ulcer stage: stage 2 Laterality: left Qualified Code(s): L89.222 - Pressure ulcer of left hip, stage 2 Is this a current diagnosis for this admission?: Yes (6) Depression Qualifiers: Depression Type: unspecified Qualified Code(s): F32.9 - Major depressive disorder, single episode, unspecified Is this a current diagnosis for this admission?: Yes (7) Hypertension Qualifiers: Hypertension type: essential hypertension Qualified Code(s): I10 - Essential (primary) hypertension Is this a current diagnosis for this admission?: Yes (8) Malnutrition Qualifiers: Malnutrition type: unspecified type Qualified Code(s): E46 - Unspecified protein-calorie malnutrition Is this a current diagnosis for this admission?: Yes - Time Time Spent with patient: 25-34 minutes - Plan Summary Plan Summary: Patient reportedly not eating well. She is off TPN. However she was successfully weaned off the BiPAP. I had talked to her about nutritional needs , nasogastric tube, tube feedings, DNR status, CPR. Reportedly patient has been depressed and has no willing to live. We will consult palliative care and hospice. We will reconsult psychiatry. Continue supportive care. Continue current antibiotics and begin Ensure. Replace potassium discontinue vancomycin and keep the cefepime. We will begin gentle IV fluids again.
[2017-05-10] MEDS: POTASSI CL 20 MEQ/50 ML RIDER 20 MEQ/50 ML RTUPB IV SCH ×3 (10:30→14:26)
[2017-05-10] MEDS: ENOXAPARIN SODIUM INJ 40 MG/0.4 ML DISP.SYRIN SUBCUT SCH (10:30)
[2017-05-10] MEDS: CEFEPIME 1 GM/D5W RTU 1 GM/50 ML RTUPB IV SCH ×2 (10:30→21:45)
[2017-05-10] MEDS: LEVOTHYROXINE SODIUM 0.05 MG TABLET PO SCH (10:31)
[2017-05-10] MEDS: CITALOPRAM HYDROBROMIDE 20 MG TABLET PO SCH (10:31)
[2017-05-10] MEDS: COLLAGENASE CLOSTRIDIUM HIST. OINT 30 GM TOP SCH (10:32)
[2017-05-10] MEDS: FLUTICASONE/SALMETEROL DISKUS 250-50 MCG/DOSE IH SCH ×2 (10:32→21:46)
[2017-05-10] MEDS: DEXTROSE 5%-NORMAL SALINE 1,000 ML IV PRN (10:33)
[2017-05-10] MEDS: OLANZAPINE INJ/PF 10 MG SDV IM SCH (17:33)
[2017-05-11] MEDS: OLANZAPINE INJ/PF 10 MG SDV IM SCH ×2 (05:05→17:25)
[2017-05-11] MEDS: ACETAZOLAMIDE 250 MG TABLET PO SCH (05:06)
[2017-05-11] MEDS: HYDROCORTISONE SOD SUCCINATE INJ/PF 100 MG/2 ML SDV IV SCH ×4 (05:06→22:11)
[2017-05-11] MEDS: NORMAL SALINE INJ/PF 0.9% 10 ML SDV IV PRN (05:06)
[2017-05-11 05:43] LABS: BLOOD UREA NITROGEN 25 mg/dL (7-20); CALCIUM 8.1 mg/dL (8.4-10.2); CHLORIDE 93 mmol/L (98-107); CREATININE RESULT 0.46 mg/dL (0.52-1.25); GLUCOSE 114 mg/dL (75-110); POTASSIUM 3.5 mmol/L (3.6-5.0)
[2017-05-11 06:08] LABS: SODIUM 143.5 mmol/L (137-145)
[2017-05-11 06:16] LABS: ANION GAP 1 (5-19); CARBON DIOXIDE 50 mmol/L (22-30)
[2017-05-11] MEDS: DEXTROSE 5%-NORMAL SALINE 1,000 ML IV PRN (08:21)
--- NOTE | 2017-05-11 08:37 | PDOC PROGRESS REPORT ---
Subjective Progress Note for:: 05/11/17 Subjective:: Pt reportedly without any discomfort. Remained withdrawn. Denies pain. No reported chills nor fever. Very poor intake. Tried on TPN when on BIPAP. Now off BIPAP. No reported diarrhea. Physical Exam Vital Signs: Temp Pulse Resp BP Pulse Ox 97.2 F 79 11 L 106/75 96 05/11/17 06:00 05/11/17 07:18 05/11/17 06:00 05/10/17 16:00 05/11/17 06:00 Intake & Output 05/10/17 05/11/17 05/12/17 06:59 06:59 06:59 Intake Total 1524 1814 Output Total 2855 925 60 Balance -1331 889 -60 Weight 49.2 kg 49.2 kg General appearance: PRESENT: no acute distress, other - nasal canula O2 Head exam: PRESENT: normocephalic Eye exam: PRESENT: EOMI Mouth exam: PRESENT: moist, neck supple Neck exam: ABSENT: JVD Respiratory exam: PRESENT: decreased breath sounds Cardiovascular exam: PRESENT: RRR. ABSENT: gallop GI/Abdominal exam: PRESENT: hypoactive bowel sounds, soft Extremities exam: PRESENT: other - pitting edema B/L. Multiple wounds unchanged. Neurological exam: PRESENT: alert, awake Psychiatric exam: PRESENT: depressed Focused psych exam: ABSENT: restlessness Skin exam: PRESENT: dry. ABSENT: cyanosis Results Laboratory Results: 05/08/17 09:30 05/11/17 05:10 05/11/17 05:10 Sodium 143.5 Potassium 3.5 L Chloride 93 L Carbon Dioxide 50 H* Anion Gap 1 L BUN 25 H Creatinine 0.46 L Est GFR ( Amer) > 60 Est GFR (Non-Af Amer) > 60 Glucose 114 H Calcium 8.1 L 05/07/17 09:30 Knee - Left Gram Stain - Final 05/07/17 09:30 Knee - Left Wound Culture - Final Staphylococcus Aureus 05/07/17 09:30 Ankle - Left Gram Stain - Final 05/07/17 09:30 Ankle - Left Wound Culture - Final Staphylococcus Aureus Morganella Morganii 05/07/17 09:30 Knee - Right Gram Stain - Final 05/07/17 09:30 Knee - Right Wound Culture - Final Staphylococcus Aureus 05/03/17 05/06/17 19:40 22:18 Troponin I 0.024 NT-Pro-B Natriuret Pep 6660 H Impressions: Head CT 05/06/17 00:00 IMPRESSION: No hemorrhage. Areas of low density in the white matter most likely due to chronic micro-vascular ischemic change. KUB X-Ray 05/06/17 00:00 IMPRESSION: Left lower lobe collapse and consolidation worrisome for pneumonia Grossly nonobstructive bowel gas pattern. Clips right upper quadrant post cholecystectomy. Daniel catheter in the bladder. Chest X-Ray 05/08/17 00:00 IMPRESSION: Small bilateral pleural effusions. Left lower lobe pneumonia. Limited right lower lobe pneumonia cannot be excluded. Assessment & Plan - Diagnosis (1) Acute hypercapnic respiratory failure Is this a current diagnosis for this admission?: Yes (2) Pneumonia Qualifiers: Pneumonia type: due to unspecified organism Is this a current diagnosis for this admission?: Yes (3) UTI (urinary tract infection) Qualifiers: Urinary tract infection type: site unspecified Hematuria presence: without hematuria Qualified Code(s): N39.0 - Urinary tract infection, site not specified Is this a current diagnosis for this admission?: Yes (4) Myxedema Is this a current diagnosis for this admission?: Yes (5) Decubitus ulcer Qualifiers: Pressure ulcer location: thigh Pressure ulcer stage: stage 2 Laterality: left Qualified Code(s): L89.222 - Pressure ulcer of left hip, stage 2 Is this a current diagnosis for this admission?: Yes (6) Depression Qualifiers: Depression Type: unspecified Qualified Code(s): F32.9 - Major depressive disorder, single episode, unspecified Is this a current diagnosis for this admission?: Yes (7) Hypertension Qualifiers: Hypertension type: essential hypertension Qualified Code(s): I10 - Essential (primary) hypertension Is this a current diagnosis for this admission?: Yes (8) Malnutrition Qualifiers: Malnutrition type: unspecified type Qualified Code(s): E46 - Unspecified protein-calorie malnutrition Is this a current diagnosis for this admission?: Yes - Time Time Spent with patient: 25-34 minutes - Plan Summary Plan Summary: Patient clinically responded to myxedema treatment w/ IV synthroid and steroids. We will continue for now. Cultures grew morganella and staph both sensitive to levaquin, we will switch to levaquin IV. Begin NGT as patient has very poor intake.
[2017-05-11] MEDS ORDERED: PHARMACY COMMUNICATION ORDER MC NR ×2 (08:45→09:15)
[2017-05-11] MEDS ORDERED: ONDANSETRON 4 MG TAB.RAPDIS NG PRN (09:00)
[2017-05-11] MEDS ORDERED: ACETAMINOPHEN 325 MG TABLET NG PRN (09:00)
[2017-05-11] MEDS ORDERED: DEXTROSE 40% GEL 15 GM TUBE X 2 NG PRN (09:30)
[2017-05-11] MEDS ORDERED: DEXTROSE 40% GEL 15 GM TUBE NG PRN (09:30)
[2017-05-11] MEDS: POTASSI CL 20 MEQ/50 ML RIDER 20 MEQ/50 ML RTUPB IV SCH ×3 (09:31→13:39)
[2017-05-11] MEDS ORDERED: FAT EMULSIONS 250 ML IV SCH (10:00)
[2017-05-11] MEDS: LEVOTHYROXINE SODIUM INJ/PF 0.1 MG SDV IV SCH (10:37)
[2017-05-11] MEDS: LEVOFLOXACIN 750 MG/D5W RTU 750 MG/150 ML RTUPB IV SCH (10:37)
[2017-05-11] MEDS: FLUTICASONE/SALMETEROL DISKUS 250-50 MCG/DOSE IH SCH ×2 (10:38→22:13)
[2017-05-11] MEDS: CITALOPRAM HYDROBROMIDE 20 MG TABLET NG SCH (12:59)
[2017-05-11] MEDS: ENOXAPARIN SODIUM INJ 40 MG/0.4 ML DISP.SYRIN SUBCUT SCH (12:59)
[2017-05-11] MEDS: COLLAGENASE CLOSTRIDIUM HIST. OINT 30 GM TOP SCH (13:00)
--- NOTE | 2017-05-11 13:01 | RADIOLOGY REPORT (SQ) ---
EXAM DESCRIPTION: INTRO/GI TUBE W/FLUORO; INTRO LONG GI TUBE (MILLAB) COMPLETED DATE/TIME: 05/11/2017 11:31 am REASON FOR STUDY: dobhoff placement; DOBHOFF PLACEMENT FOR NUTRITION COMPARISON: KUB 05/06/2017 TECHNIQUE: Live fluoroscopic guidance. RADIATION DOSE: Fluoro time 1 minutes 4 seconds 3 digital radiographic images saved to PACS. LIMITATIONS: None. FINDINGS: The patient was brought to the fluoroscopy room and placed supine on the fluoroscopy table . A NJ-tube was advanced through the right nostril through the stomach and ending in the 3rd portion of the duodenum. Approximately 30 mL of Isovue-300 contrast was injected through the catheter to con firm placement. A fluoroscopic spot film was saved to PACs demonstrating catheter tip within the 3rd to 4th portion of the duodenum. The tube was secured to the patient's nose with tape IMPRESSION: Successful fluoroscopic guided placement of a NJ tube. COMMENT: Quality ID [id number]: Final reports for procedures using fluoroscopy that document radiation exp osure indices, or exposure time and number of fluorographic images (if radiation exposure indices are not available) TECHNICAL DOCUMENTATION: JOBD ID: [id number] [email or web address]- All Rights Reserved
--- NOTE | 2017-05-11 14:53 | Progress Note ---
Provider Note Provider Note: CAPACITY EVALUATION: Met with Patient who is in ICU. She was noted to be laying in bed and with a feeding tube. Review of her chart revealed she is refusing oral medications and food. She has reportedly lost 30-40 pounds since November 2016 when her of 29 years . Patient is currently prescribed zyprexa 5 mg IM, and twice a day and celexa 20 mg daily. Patient reported her son, Arthur Hernandez ) lives with her and her daughter, Yani Beltran ([phone]) lives close by. Patient reported a previous history of depression in which she took Celexa with some relief of symptoms. Current medical issues include bronchitis, urinary tract infection, hypothyroidism, malnutrition, and bed cores covering most of her body (with successful debridment). CT of the chest revealed bilateral pleural diffusions with likely interstitial edema and superimposed ateclasis or pneumonia in the left base. CT of the head revealed low diffusion indicative of ischemic white matter changes and age related involutional changes. I spoke with Patient and advised her of the reason for the evaluation. I advised her I had been asked by DSS to assess her ability to make decisions that were in her best interest to include financially, legally, medically, and personally. Patient advised she understood. I advised Patient I was told by the nurse the Patient requested a DNR but was denied until her capacity had been assessed. When asked if she understood what DNR meant, the Patient stated "if I can take care of myself." I advised Patient that was not accurate and proceeded to tell her it meant the nurses and doctors would not take life saving measuring should she require it if she was a DNR status. I asked her if she wanted the staff to save her life if required and she stated " yes." I went on to complete the capacity evaluation and the Patient identified her correct name and date of but stated her age as "31." She correctly stated the month but stated the year as "70." She identified "sky" as the current [place] President , and correctly spelled the word "world" forward but spelled it incorrectly backward "lword." She was unable to recall 3 words following a 3-minute delay. When asked what she would do if she came home and found her house flooding or smoke coming from her neighbor's home, she answered "call a man" for both responses. Patient's ability to apply abstract reasoning to higher cortical questions was impaired. Patient is alert and oriented to person and place only. Mood is depressed with a blunt affect. She denied suicidal /homicidal ideation, intent, or plan. She denied psychosis and there was no evidence her responding to internal stimuli nor were delusions evident. Thought processes were linear, organized, and rational, but brief in nature. Conversational speech was reactive and not self- initiative. Intellectual abilities were estimated to be average. Recent, remote , and immediate memory was poor to impaired. Attention and concentration was impaired. Insight, judgment, and impulse control appeared to be poor to impaired. 1. 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 296.33 (F33.2) Major Depression, Recurrent Episode, Severe, Without Psychotic Features 3. Grief Response, Severe Impression / Plan: Patient was assessed bedside in the intensive care unit. She required prompting to respond even after being told the reason for the evaluation process. She did participate in the assessment. She appeared frail and weak and was soft-spoken, but followed instructions. Her mental status was impaired during the capacity evaluation, though it was felt her cognition was impaired secondary to malnutrition and depression. She reported a desire to live but also reported thoughts of without active suicidal ideation, intent or plan. She was unsure if her current food restriction and loss of care for self was a slow suicidal gesture or attempt or a manifestation of severe depression. Despite the cause, the Patient is clearly unable to care for self at this time and has placed herself into a medically fragile status. She has bed sores covering her body which required surgical debridment and requires an NG tube for feeding. She is unable to push a button on her bed or lift her arm to feed herself. She did not respond to words of encouragement though indicated she would take medicine by mouth if offered, though historically refused oral medications, thus requiring the NG tube. At this time, a legal guardian is recommended for this Patient as she is unable to make decisions in her best interest and on her own behalf legally, medically , financially, and personally. She will also require 24-hour supervision for her own safety and protection. She is recommended to follow up with a Neurologist given the vascular problems identified on the head CT. In addition, physicians are recommended to avoid prescribing benzodiazepines and antipsychotic medications in high doses as the possibility of psychosis and aggression is possible. If Patient's mental status improves, she would likely benefit from psychotherapy to address her ongoing depression and grief issues. Thank you for this kind referral.
[2017-05-11] MEDS: ACETAZOLAMIDE 250 MG TABLET NG SCH ×2 (14:55→22:05)
[2017-05-12 05:08] LABS: BLOOD UREA NITROGEN 26 mg/dL (7-20); CALCIUM 8.3 mg/dL (8.4-10.2); CHLORIDE 96 mmol/L (98-107); GLUCOSE 148 mg/dL (75-110); POTASSIUM 3.9 mmol/L (3.6-5.0); SODIUM 144.7 mmol/L (137-145)
[2017-05-12 05:18] LABS: ANION GAP 4 (5-19); CARBON DIOXIDE 45 mmol/L (22-30)
[2017-05-12] MEDS: ACETAZOLAMIDE 250 MG TABLET NG SCH ×2 (05:46→13:46)
[2017-05-12] MEDS: HYDROCORTISONE SOD SUCCINATE INJ/PF 100 MG/2 ML SDV IV SCH ×3 (05:46→18:08)
[2017-05-12] MEDS: OLANZAPINE INJ/PF 10 MG SDV IM SCH ×2 (05:47→18:08)
[2017-05-12] MEDS: DEXTROSE 5%-NORMAL SALINE 1,000 ML IV PRN ×2 (06:55→10:36)
[2017-05-12] MEDS: CITALOPRAM HYDROBROMIDE 20 MG TABLET NG SCH (10:06)
[2017-05-12] MEDS: LEVOTHYROXINE SODIUM INJ/PF 0.1 MG SDV IV SCH (10:07)
[2017-05-12] MEDS: LEVOFLOXACIN 750 MG/D5W RTU 750 MG/150 ML RTUPB IV SCH (10:07)
[2017-05-12] MEDS: ACETAMINOPHEN SOLN 325 MG/10.15 ML UDCUP NG PRN (10:09)
[2017-05-12] MEDS: FLUTICASONE/SALMETEROL DISKUS 250-50 MCG/DOSE IH SCH ×2 (10:09→21:56)
[2017-05-12] MEDS: ENOXAPARIN SODIUM INJ 40 MG/0.4 ML DISP.SYRIN SUBCUT SCH (10:13)
[2017-05-12] MEDS: COLLAGENASE CLOSTRIDIUM HIST. OINT 30 GM TOP SCH (10:14)
[2017-05-12] MEDS ORDERED: FUROSEMIDE INJ/PF 40 MG/4 ML SDV ONE (13:50)
[2017-05-12] MEDS ORDERED: FUROSEMIDE INJ/PF 40 MG/4 ML SDV IV ONE (14:00)
--- NOTE | 2017-05-12 16:02 | PDOC PROGRESS REPORT ---
Subjective Progress Note for:: 05/12/17 Subjective:: Patient does not answer any questions for me Physical Exam Vital Signs: Temp Pulse Resp BP Pulse Ox 97.0 F 95 11 L 120/80 99 05/12/17 10:24 05/12/17 10:00 05/12/17 10:24 05/12/17 10:24 05/12/17 10:24 Intake & Output 05/11/17 05/12/17 05/13/17 06:59 06:59 06:59 Intake Total 1814 1761 Output Total 925 555 25 Balance 889 1206 -25 Weight 49.2 kg 50.8 kg General appearance: PRESENT: no acute distress Eye exam: PRESENT: conjunctiva pink. ABSENT: scleral icterus Mouth exam: PRESENT: moist, tongue midline Neck exam: ABSENT: JVD Respiratory exam: PRESENT: clear to auscultation gilles. ABSENT: rales, rhonchi, wheezes Cardiovascular exam: PRESENT: RRR. ABSENT: diastolic murmur, rubs, systolic murmur GI/Abdominal exam: PRESENT: normal bowel sounds, soft. ABSENT: distended, guarding, mass, organolmegaly, rebound, tenderness Extremities exam: PRESENT: pedal edema. ABSENT: calf tenderness, clubbing Neurological exam: PRESENT: other - Patient will not cooperate for exam. Psychiatric exam: PRESENT: flat affect Skin exam: PRESENT: other - Bilateral knees have dressings in place. Results Laboratory Results: 05/08/17 09:30 05/12/17 04:44 05/12/17 04:44 Sodium 144.7 Potassium 3.9 Chloride 96 L Carbon Dioxide 45 H* Anion Gap 4 L BUN 26 H Creatinine 0.50 L Est GFR ( Amer) > 60 Est GFR (Non-Af Amer) > 60 Glucose 148 H Calcium 8.3 L 05/03/17 05/06/17 19:40 22:18 Troponin I 0.024 NT-Pro-B Natriuret Pep 6660 H Impressions: Head CT 05/06/17 00:00 IMPRESSION: No hemorrhage. Areas of low density in the white matter most likely due to chronic micro-vascular ischemic change. KUB X-Ray 05/06/17 00:00 IMPRESSION: Left lower lobe collapse and consolidation worrisome for pneumonia Grossly nonobstructive bowel gas pattern. Clips right upper quadrant post cholecystectomy. Daniel catheter in the bladder. Chest X-Ray 05/08/17 00:00 IMPRESSION: Small bilateral pleural effusions. Left lower lobe pneumonia. Limited right lower lobe pneumonia cannot be excluded. Gastrostomy Tube Placement 05/11/17 00:00 IMPRESSION: Successful fluoroscopic guided placement of a NJ tube. Guidance Fluoroscopy 05/11/17 09:50 IMPRESSION: Successful fluoroscopic guided placement of a NJ tube. Assessment & Plan - Diagnosis (1) Pneumonia Qualifiers: Pneumonia type: due to unspecified organism Is this a current diagnosis for this admission?: Yes Plan: Patient is growing out Morganella and staph. Will continue with Levaquin. (2) Malnutrition Qualifiers: Malnutrition type: unspecified type Qualified Code(s): E46 - Unspecified protein-calorie malnutrition Is this a current diagnosis for this admission?: Yes Plan: Getting tube feeds through with her NG. (3) Hypertension Qualifiers: Hypertension type: essential hypertension Qualified Code(s): I10 - Essential (primary) hypertension Is this a current diagnosis for this admission?: Yes Plan: Stable (4) Depression Qualifiers: Depression Type: unspecified Qualified Code(s): F32.9 - Major depressive disorder, single episode, unspecified Is this a current diagnosis for this admission?: Yes Plan: Continue with Zyprexa and Celexa. (5) Decubitus ulcer Qualifiers: Pressure ulcer location: thigh Pressure ulcer stage: stage 2 Laterality: left Qualified Code(s): L89.222 - Pressure ulcer of left hip, stage 2 Is this a current diagnosis for this admission?: Yes Plan: Continue with local wound care. (6) Hypothyroidism Qualifiers: Hypothyroidism type: unspecified Qualified Code(s): E03.9 - Hypothyroidism , unspecified Is this a current diagnosis for this admission?: Yes Plan: Continue with Synthroid. (7) Myxedema Is this a current diagnosis for this admission?: Yes Plan: Patient is on Synthroid and Solu-Medrol. - Time Time Spent with patient: 25-34 minutes - Inpatient Certification Medical Necessity: Need Close Monitoring Due to Risk of Patient Decompensation
[2017-05-13] MEDS: HYDROCORTISONE SOD SUCCINATE INJ/PF 100 MG/2 ML SDV IV SCH ×5 (01:08→22:17)
[2017-05-13 05:42] LABS: BLOOD UREA NITROGEN 26 mg/dL (7-20); CALCIUM 7.8 mg/dL (8.4-10.2); CHLORIDE 94 mmol/L (98-107); CREATININE RESULT 0.47 mg/dL (0.52-1.25); GLUCOSE 156 mg/dL (75-110)
[2017-05-13 05:57] LABS: SODIUM 145.2 mmol/L (137-145)
[2017-05-13] MEDS ORDERED: OLANZAPINE INJ/PF 10 MG SDV IM ONE (06:00)
[2017-05-13 06:05] LABS: BASOPHILS % (MANUAL) 0 % (0-2); EOSINOPHILS % (MANUAL) 0 % (0-6); TOTAL CELLS COUNTED 100
[2017-05-13 06:06] LABS: ANISOCYTOSIS 3+
[2017-05-13 06:08] LABS: ANION GAP 2 (5-19)
[2017-05-13 06:10] LABS: CARBON DIOXIDE 49 mmol/L (22-30)
[2017-05-13] MEDS: OLANZAPINE INJ/PF 10 MG SDV IM SCH ×2 (06:16→18:36)
[2017-05-13] MEDS ORDERED: NORMAL SALINE 1000 ML 1,000 ML IV ONE (06:29)
[2017-05-13 06:31] LABS: ABSOLUTE LYMPHOCYTES (AUTO) 0.2 10^3/uL (0.5-4.7); ABSOLUTE MONOCYTES (AUTO) 0.3 10^3/uL (0.1-1.4); ABSOLUTE NEUT (AUTO) 8.4 10^3/uL (1.7-8.2); BASOPHILS % (AUTO) 0.2 % (0-2); HEMOGLOBIN 13.8 g/dL (12.0-15.5); HGB HCT DIFFERENCE -3.6; LYMPHOCYTES % (AUTO) 2.3 % (13-45); MONOCYTES % (AUTO) 3.7 % (3-13); RED CELL DISTRIBUTION WIDTH 22.5 % (11.5-14.0); SEGMENTED NEUTROPHILS % (AUTO) 93.8 % (42-78); WHITE BLOOD COUNT 8.9 10^3/uL (4.0-10.5)
[2017-05-13 06:48] LABS: ARTERIAL BLOOD BASE EXCESS 17.6 mmol/L; ARTERIAL BLOOD O2 SATURATION 89.1 % (94-98)
[2017-05-13 06:56] LABS: RED BLOOD COUNT 5.01 10^6/uL (3.72-5.28)
[2017-05-13 06:57] LABS: LYMPHOCYTES % (MANUAL) 1 % (13-45); MEAN CORPUSCULAR HEMOGLOBIN 27.5 pg (27.0-33.4); MEAN CORPUSCULAR HGB CONC 30.7 g/dL (32.0-36.0); MEAN CORPUSCULAR VOLUME 90 fl (80-97)
[2017-05-13] MEDS ORDERED: POTASSIUM PHOS,M-BASIC-D-BASIC 30 MMOL in NORMAL SALINE 500 ML IV ONE (07:00)
[2017-05-13] MEDS ORDERED: MAGNESIUM SULFATE/D5W 1 GM/100 ML RTUPB IV ONE (07:00)
[2017-05-13] MEDS: DEXTROSE 5%-NORMAL SALINE 1,000 ML IV PRN (08:05)
[2017-05-13] MEDS ORDERED: FUROSEMIDE INJ/PF 40 MG/4 ML SDV IV SCH (10:00)
--- NOTE | 2017-05-13 12:10 | PDOC PROGRESS REPORT ---
Subjective Progress Note for:: 05/13/17 Subjective:: Patient is alert and is answering questions today. She asked if she can eat some food. Physical Exam Vital Signs: Temp Pulse Resp BP Pulse Ox 97.8 F 99 10 L 117/64 88 L 05/13/17 08:02 05/13/17 08:02 05/13/17 08:25 05/13/17 08:02 05/13/17 08:25 Intake & Output 05/12/17 05/13/17 05/14/17 06:59 06:59 06:59 Intake Total 1761 990 Output Total 555 2540 Balance 1206 -1550 Weight 50.8 kg 50 kg General appearance: PRESENT: no acute distress Eye exam: PRESENT: conjunctiva pink. ABSENT: scleral icterus Mouth exam: PRESENT: moist, tongue midline Neck exam: ABSENT: JVD Respiratory exam: PRESENT: clear to auscultation gilles. ABSENT: rales, rhonchi, wheezes Cardiovascular exam: PRESENT: RRR. ABSENT: diastolic murmur, rubs, systolic murmur GI/Abdominal exam: PRESENT: normal bowel sounds, soft. ABSENT: distended, guarding, mass, organolmegaly, rebound, tenderness Extremities exam: ABSENT: calf tenderness, clubbing, pedal edema Neurological exam: PRESENT: awake, oriented to person, oriented to place Psychiatric exam: PRESENT: flat affect Skin exam: PRESENT: other - Dressings in place on the bilateral knees. Results Laboratory Results: 05/13/17 04:50 05/13/17 04:50 05/13/17 05/13/17 05/13/17 04:50 04:50 06:43 WBC 8.9 RBC 5.01 Hgb 13.8 Hct 45.0 MCV 90 MCH 27.5 MCHC 30.7 L RDW 22.5 H Plt Count 117 L Seg Neutrophils % 93.8 H Lymphocytes % 2.3 L Monocytes % 3.7 Eosinophils % 0.0 Basophils % 0.2 Absolute Neutrophils 8.4 H Absolute Lymphocytes 0.2 L Absolute Monocytes 0.3 Absolute Eosinophils 0.0 Absolute Basophils 0.0 Carbonic Acid 2.85 H HCO3/H2CO3 Ratio 17:1 ABG pH 7.33 L ABG pCO2 94.8 H* ABG pO2 63.5 L ABG HCO3 49.0 H ABG O2 Saturation 89.1 L ABG Base Excess 17.6 FiO2 28% Sodium 145.2 H Potassium 3.0 L* Chloride 94 L Carbon Dioxide 49 H* Anion Gap 2 L BUN 26 H Creatinine 0.47 L Est GFR ( Amer) > 60 Est GFR (Non-Af Amer) > 60 Glucose 156 H Calcium 7.8 L 05/03/17 05/06/17 19:40 22:18 Troponin I 0.024 NT-Pro-B Natriuret Pep 6660 H Impressions: Head CT 05/06/17 00:00 IMPRESSION: No hemorrhage. Areas of low density in the white matter most likely due to chronic micro-vascular ischemic change. KUB X-Ray 05/06/17 00:00 IMPRESSION: Left lower lobe collapse and consolidation worrisome for pneumonia Grossly nonobstructive bowel gas pattern. Clips right upper quadrant post cholecystectomy. Daniel catheter in the bladder. Chest X-Ray 05/08/17 00:00 IMPRESSION: Small bilateral pleural effusions. Left lower lobe pneumonia. Limited right lower lobe pneumonia cannot be excluded. Gastrostomy Tube Placement 05/11/17 00:00 IMPRESSION: Successful fluoroscopic guided placement of a NJ tube. Guidance Fluoroscopy 05/11/17 09:50 IMPRESSION: Successful fluoroscopic guided placement of a NJ tube. Assessment & Plan - Diagnosis (1) Pneumonia Qualifiers: Pneumonia type: due to unspecified organism Is this a current diagnosis for this admission?: Yes Plan: Patient is growing out Morganella and staph. Will continue with Levaquin. (2) Malnutrition Qualifiers: Malnutrition type: unspecified type Qualified Code(s): E46 - Unspecified protein-calorie malnutrition Is this a current diagnosis for this admission?: Yes Plan: Getting tube feeds through with her NG. She is more alert and asks if she can eat. Will give her regular diet. (3) Hypertension Qualifiers: Hypertension type: essential hypertension Qualified Code(s): I10 - Essential (primary) hypertension Is this a current diagnosis for this admission?: Yes Plan: Stable (4) Depression Qualifiers: Depression Type: unspecified Qualified Code(s): F32.9 - Major depressive disorder, single episode, unspecified Is this a current diagnosis for this admission?: Yes Plan: Continue with Zyprexa and Celexa. (5) Decubitus ulcer Qualifiers: Pressure ulcer location: thigh Pressure ulcer stage: stage 2 Laterality: left Qualified Code(s): L89.222 - Pressure ulcer of left hip, stage 2 Is this a current diagnosis for this admission?: Yes Plan: Continue with local wound care. (6) Hypothyroidism Qualifiers: Hypothyroidism type: unspecified Qualified Code(s): E03.9 - Hypothyroidism , unspecified Is this a current diagnosis for this admission?: Yes Plan: Continue with Synthroid. (7) Myxedema Is this a current diagnosis for this admission?: Yes Plan: Patient is on Synthroid and Solu-Medrol. - Time Time Spent with patient: 25-34 minutes - Inpatient Certification Medical Necessity: Need Close Monitoring Due to Risk of Patient Decompensation
[2017-05-13] MEDS: ENOXAPARIN SODIUM INJ 40 MG/0.4 ML DISP.SYRIN SUBCUT SCH (12:24)
[2017-05-13] MEDS: CITALOPRAM HYDROBROMIDE 20 MG TABLET NG SCH (12:28)
[2017-05-13] MEDS: LEVOTHYROXINE SODIUM INJ/PF 0.1 MG SDV IV SCH (12:29)
[2017-05-13] MEDS: FLUTICASONE/SALMETEROL DISKUS 250-50 MCG/DOSE IH SCH ×2 (12:52→22:17)
[2017-05-13] MEDS: COLLAGENASE CLOSTRIDIUM HIST. OINT 30 GM TOP SCH (12:54)
[2017-05-13] MEDS: LEVOFLOXACIN 750 MG/D5W RTU 750 MG/150 ML RTUPB IV SCH (13:48)
[2017-05-14 05:48] LABS: HEMOGLOBIN 13.6 g/dL (12.0-15.5); HGB HCT DIFFERENCE -3.2; MEAN CORPUSCULAR HEMOGLOBIN 27.1 pg (27.0-33.4); MEAN CORPUSCULAR VOLUME 88 fl (80-97); RED BLOOD COUNT 5.02 10^6/uL (3.72-5.28); WHITE BLOOD COUNT 9.5 10^3/uL (4.0-10.5)
[2017-05-14 06:16] LABS: BASOPHILS % (MANUAL) 0 % (0-2); EOSINOPHILS % (MANUAL) 0 % (0-6); LYMPHOCYTES % (MANUAL) 2 % (13-45); TOTAL CELLS COUNTED 100
[2017-05-14 06:17] LABS: ANISOCYTOSIS 2+; HYPOCHROMASIA 1+; TARGET CELLS SLIGHT; TOXIC GRANULATION SLIGHT
[2017-05-14] MEDS: HYDROCORTISONE SOD SUCCINATE INJ/PF 100 MG/2 ML SDV IV SCH ×3 (06:20→18:12)
[2017-05-14] MEDS: OLANZAPINE INJ/PF 10 MG SDV IM SCH ×2 (06:20→18:12)
[2017-05-14 06:35] LABS: BLOOD UREA NITROGEN 28 mg/dL (7-20); CALCIUM 7.9 mg/dL (8.4-10.2); CHLORIDE 98 mmol/L (98-107); CREATININE RESULT 0.39 mg/dL (0.52-1.25); GLUCOSE 162 mg/dL (75-110); POTASSIUM 3.4 mmol/L (3.6-5.0); SODIUM 146.5 mmol/L (137-145)
[2017-05-14 06:50] LABS: CARBON DIOXIDE 47 mmol/L (22-30)
[2017-05-14 06:51] LABS: ANION GAP 2 (5-19)
[2017-05-14] MEDS: ENOXAPARIN SODIUM INJ 40 MG/0.4 ML DISP.SYRIN SUBCUT SCH (09:27)
[2017-05-14] MEDS: FLUTICASONE/SALMETEROL DISKUS 250-50 MCG/DOSE IH SCH ×2 (10:38→21:26)
[2017-05-14] MEDS: CITALOPRAM HYDROBROMIDE 20 MG TABLET NG SCH (10:39)
[2017-05-14] MEDS: COLLAGENASE CLOSTRIDIUM HIST. OINT 30 GM TOP SCH (10:40)
[2017-05-14] MEDS: LEVOFLOXACIN 750 MG/D5W RTU 750 MG/150 ML RTUPB IV SCH (10:40)
[2017-05-14] MEDS: DEXTROSE 5%-NORMAL SALINE 1,000 ML IV PRN (10:45)
[2017-05-14] MEDS: LEVOTHYROXINE SODIUM INJ/PF 0.1 MG SDV IV SCH (11:04)
--- NOTE | 2017-05-14 15:17 | PDOC PROGRESS REPORT ---
Subjective Progress Note for:: 05/14/17 Subjective:: Patient is alert and is answering questions today. She did eat some breakfast. Physical Exam Vital Signs: Temp Pulse Resp BP Pulse Ox 97.9 F 91 16 106/55 L 96 05/14/17 11:51 05/14/17 14:00 05/14/17 11:51 05/14/17 11:51 05/14/17 13:39 Intake & Output 05/13/17 05/14/17 05/15/17 06:59 06:59 06:59 Intake Total 990 4215 Output Total 2540 770 Balance -1550 3445 Weight 50 kg 51.2 kg General appearance: PRESENT: no acute distress Eye exam: PRESENT: conjunctiva pink. ABSENT: scleral icterus Mouth exam: PRESENT: moist, tongue midline Neck exam: ABSENT: JVD Respiratory exam: PRESENT: clear to auscultation gilles. ABSENT: rales, rhonchi, wheezes Cardiovascular exam: PRESENT: RRR. ABSENT: diastolic murmur, rubs, systolic murmur GI/Abdominal exam: PRESENT: normal bowel sounds, soft. ABSENT: distended, guarding, mass, organolmegaly, rebound, tenderness Extremities exam: ABSENT: calf tenderness, clubbing, pedal edema Neurological exam: PRESENT: alert, awake, oriented to person, oriented to place , oriented to time, oriented to situation, CN II-XII grossly intact. ABSENT: motor sensory deficit Psychiatric exam: PRESENT: appropriate affect Skin exam: PRESENT: other - Dressings on the bilateral knees. Results Laboratory Results: 05/14/17 04:40 05/14/17 04:40 05/14/17 05/14/17 04:40 04:40 WBC 9.5 RBC 5.02 Hgb 13.6 Hct 44.0 MCV 88 MCH 27.1 MCHC 31.0 L RDW 23.0 H Plt Count 107 L Seg Neutrophils % Not Reportable Lymphocytes % Not Reportable Monocytes % Not Reportable Eosinophils % Not Reportable Basophils % Not Reportable Absolute Neutrophils Not Reportable Absolute Lymphocytes Not Reportable Absolute Monocytes Not Reportable Absolute Eosinophils Not Reportable Absolute Basophils Not Reportable Sodium 146.5 H Potassium 3.4 L Chloride 98 Carbon Dioxide 47 H* Anion Gap 2 L BUN 28 H Creatinine 0.39 L Est GFR ( Amer) > 60 Est GFR (Non-Af Amer) > 60 Glucose 162 H Calcium 7.9 L 05/03/17 05/06/17 19:40 22:18 Troponin I 0.024 NT-Pro-B Natriuret Pep 6660 H Impressions: Head CT 05/06/17 00:00 IMPRESSION: No hemorrhage. Areas of low density in the white matter most likely due to chronic micro-vascular ischemic change. KUB X-Ray 05/06/17 00:00 IMPRESSION: Left lower lobe collapse and consolidation worrisome for pneumonia Grossly nonobstructive bowel gas pattern. Clips right upper quadrant post cholecystectomy. Daniel catheter in the bladder. Chest X-Ray 05/08/17 00:00 IMPRESSION: Small bilateral pleural effusions. Left lower lobe pneumonia. Limited right lower lobe pneumonia cannot be excluded. Gastrostomy Tube Placement 05/11/17 00:00 IMPRESSION: Successful fluoroscopic guided placement of a NJ tube. Guidance Fluoroscopy 05/11/17 09:50 IMPRESSION: Successful fluoroscopic guided placement of a NJ tube. Assessment & Plan - Diagnosis (1) Pneumonia Qualifiers: Pneumonia type: due to unspecified organism Is this a current diagnosis for this admission?: Yes Plan: Patient is growing out Morganella and staph. Will continue with Levaquin. (2) Malnutrition Qualifiers: Malnutrition type: unspecified type Qualified Code(s): E46 - Unspecified protein-calorie malnutrition Is this a current diagnosis for this admission?: Yes Plan: Getting tube feeds through with her NG. Will continue her regular diet. (3) Hypertension Qualifiers: Hypertension type: essential hypertension Qualified Code(s): I10 - Essential (primary) hypertension Is this a current diagnosis for this admission?: Yes Plan: Stable (4) Depression Qualifiers: Depression Type: unspecified Qualified Code(s): F32.9 - Major depressive disorder, single episode, unspecified Is this a current diagnosis for this admission?: Yes Plan: Continue with Zyprexa and Celexa. (5) Decubitus ulcer Qualifiers: Pressure ulcer location: thigh Pressure ulcer stage: stage 2 Laterality: left Qualified Code(s): L89.222 - Pressure ulcer of left hip, stage 2 Is this a current diagnosis for this admission?: Yes Plan: Continue with local wound care. (6) Hypothyroidism Qualifiers: Hypothyroidism type: unspecified Qualified Code(s): E03.9 - Hypothyroidism , unspecified Is this a current diagnosis for this admission?: Yes Plan: Continue with Synthroid. (7) Myxedema Is this a current diagnosis for this admission?: Yes Plan: Patient is on Synthroid and Solu-Medrol. - Time Time Spent with patient: 25-34 minutes - Inpatient Certification Medical Necessity: Need Close Monitoring Due to Risk of Patient Decompensation
[2017-05-15] MEDS: HYDROCORTISONE SOD SUCCINATE INJ/PF 100 MG/2 ML SDV IV SCH ×5 (00:43→22:04)
[2017-05-15] MEDS: OLANZAPINE INJ/PF 10 MG SDV IM SCH ×2 (05:39→18:10)
[2017-05-15 06:35] LABS: BLOOD UREA NITROGEN 29 mg/dL (7-20); CALCIUM 7.6 mg/dL (8.4-10.2); CHLORIDE 98 mmol/L (98-107); CREATININE RESULT 0.32 mg/dL (0.52-1.25); GLUCOSE 149 mg/dL (75-110); POTASSIUM 3.3 mmol/L (3.6-5.0); SODIUM 148.9 mmol/L (137-145)
[2017-05-15 06:39] LABS: HEMATOCRIT 43.2 % (36.0-47.0); HEMOGLOBIN 13.5 g/dL (12.0-15.5); HGB HCT DIFFERENCE -2.7; MEAN CORPUSCULAR HEMOGLOBIN 27.1 pg (27.0-33.4); MEAN CORPUSCULAR HGB CONC 31.1 g/dL (32.0-36.0); MEAN CORPUSCULAR VOLUME 87 fl (80-97); RED BLOOD COUNT 4.98 10^6/uL (3.72-5.28); RED CELL DISTRIBUTION WIDTH 22.7 % (11.5-14.0); WHITE BLOOD COUNT 10.4 10^3/uL (4.0-10.5)
[2017-05-15 06:42] LABS: ANION GAP 3 (5-19)
[2017-05-15 06:43] LABS: CARBON DIOXIDE 48 mmol/L (22-30)
[2017-05-15 07:39] LABS: BAND NEUTROPHILS % (MANUAL) 1 % (3-5); BASOPHILS % (MANUAL) 0 % (0-2); EOSINOPHILS % (MANUAL) 1 % (0-6); LYMPHOCYTES % (MANUAL) 0 % (13-45); TOTAL CELLS COUNTED 100
[2017-05-15 07:48] LABS: TOXIC GRANULATION SLIGHT
[2017-05-15 07:49] LABS: ANISOCYTOSIS 3+; HYPOCHROMASIA SLIGHT
[2017-05-15] MEDS: CITALOPRAM HYDROBROMIDE 20 MG TABLET NG SCH (09:37)
[2017-05-15] MEDS: LEVOFLOXACIN 750 MG/D5W RTU 750 MG/150 ML RTUPB IV SCH (09:37)
[2017-05-15] MEDS: LEVOTHYROXINE SODIUM INJ/PF 0.1 MG SDV IV SCH (09:38)
[2017-05-15] MEDS: POTASSIUM CHLORIDE 20 MEQ/15 ML UDCUP NG SCH ×2 (09:38→21:58)
[2017-05-15] MEDS: COLLAGENASE CLOSTRIDIUM HIST. OINT 30 GM TOP SCH (09:38)
[2017-05-15] MEDS: ENOXAPARIN SODIUM INJ 40 MG/0.4 ML DISP.SYRIN SUBCUT SCH (09:39)
[2017-05-15] MEDS: FLUTICASONE/SALMETEROL DISKUS 250-50 MCG/DOSE IH SCH ×2 (09:39→21:58)
--- NOTE | 2017-05-15 13:31 | PDOC PROGRESS REPORT ---
Subjective Progress Note for:: 05/15/17 Subjective:: Patient is alert and is answering questions today. Complaints of restless leg. Physical Exam Vital Signs: Temp Pulse Resp BP Pulse Ox 98.0 F 98 17 128/78 H 98 05/15/17 11:55 05/15/17 11:55 05/15/17 11:55 05/15/17 11:55 05/15/17 11:55 Intake & Output 05/14/17 05/15/17 05/16/17 06:59 06:59 06:59 Intake Total 4215 1490 Output Total 770 1320 Balance 3445 170 Weight 51.2 kg 52.3 kg General appearance: PRESENT: no acute distress Eye exam: PRESENT: conjunctiva pink. ABSENT: scleral icterus Ear exam: PRESENT: bleeding Mouth exam: PRESENT: moist, tongue midline Neck exam: ABSENT: JVD Respiratory exam: PRESENT: clear to auscultation gilles. ABSENT: rales, rhonchi, wheezes Cardiovascular exam: PRESENT: RRR. ABSENT: diastolic murmur, rubs, systolic murmur GI/Abdominal exam: PRESENT: normal bowel sounds, soft. ABSENT: distended, guarding, mass, organolmegaly, rebound, tenderness Extremities exam: ABSENT: calf tenderness, clubbing, pedal edema Neurological exam: PRESENT: alert, awake, oriented to person, oriented to place , oriented to time, oriented to situation, CN II-XII grossly intact. ABSENT: motor sensory deficit Psychiatric exam: PRESENT: appropriate affect Skin exam: PRESENT: other - Dressings on the bilateral knees. Results Laboratory Results: 05/15/17 05:45 05/15/17 05:45 05/15/17 05/15/17 05:45 05:45 WBC 10.4 RBC 4.98 Hgb 13.5 Hct 43.2 MCV 87 MCH 27.1 MCHC 31.1 L RDW 22.7 H Plt Count 100 L Seg Neutrophils % Not Reportable Lymphocytes % Not Reportable Monocytes % Not Reportable Eosinophils % Not Reportable Basophils % Not Reportable Absolute Neutrophils Not Reportable Absolute Lymphocytes Not Reportable Absolute Monocytes Not Reportable Absolute Eosinophils Not Reportable Absolute Basophils Not Reportable Sodium 148.9 H Potassium 3.3 L Chloride 98 Carbon Dioxide 48 H* Anion Gap 3 L BUN 29 H Creatinine 0.32 L Est GFR ( Amer) > 60 Est GFR (Non-Af Amer) > 60 Glucose 149 H Calcium 7.6 L 05/03/17 05/06/17 19:40 22:18 Troponin I 0.024 NT-Pro-B Natriuret Pep 6660 H Impressions: Head CT 05/06/17 00:00 IMPRESSION: No hemorrhage. Areas of low density in the white matter most likely due to chronic micro-vascular ischemic change. KUB X-Ray 05/06/17 00:00 IMPRESSION: Left lower lobe collapse and consolidation worrisome for pneumonia Grossly nonobstructive bowel gas pattern. Clips right upper quadrant post cholecystectomy. Daniel catheter in the bladder. Chest X-Ray 05/08/17 00:00 IMPRESSION: Small bilateral pleural effusions. Left lower lobe pneumonia. Limited right lower lobe pneumonia cannot be excluded. Gastrostomy Tube Placement 05/11/17 00:00 IMPRESSION: Successful fluoroscopic guided placement of a [place] tube. Guidance Fluoroscopy 05/11/17 09:50 IMPRESSION: Successful fluoroscopic guided placement of a [place] tube. Assessment & Plan - Diagnosis (1) Pneumonia Qualifiers: Pneumonia type: due to unspecified organism Is this a current diagnosis for this admission?: Yes Plan: Patient is growing out Morganella and staph. Patient has had an adequate course of antibiotics we will stop. (2) Malnutrition Qualifiers: Malnutrition type: unspecified type Qualified Code(s): E46 - Unspecified protein-calorie malnutrition Is this a current diagnosis for this admission?: Yes Plan: Getting tube feeds through with her NG. Will continue her regular diet. (3) Hypertension Qualifiers: Hypertension type: essential hypertension Qualified Code(s): I10 - Essential (primary) hypertension Is this a current diagnosis for this admission?: Yes Plan: Stable (4) Depression Qualifiers: Depression Type: unspecified Qualified Code(s): F32.9 - Major depressive disorder, single episode, unspecified Is this a current diagnosis for this admission?: Yes Plan: Continue with Zyprexa and Celexa. (5) Decubitus ulcer Qualifiers: Pressure ulcer location: thigh Pressure ulcer stage: stage 2 Laterality: left Qualified Code(s): L89.222 - Pressure ulcer of left hip, stage 2 Is this a current diagnosis for this admission?: Yes Plan: Continue with local wound care. (6) Hypothyroidism Qualifiers: Hypothyroidism type: unspecified Qualified Code(s): E03.9 - Hypothyroidism , unspecified Is this a current diagnosis for this admission?: Yes Plan: Continue with Synthroid. (7) Myxedema Is this a current diagnosis for this admission?: Yes Plan: Patient is on Synthroid and Solu-Medrol. - Time Time Spent with patient: 25-34 minutes - Inpatient Certification Medical Necessity: Need Close Monitoring Due to Risk of Patient Decompensation
[2017-05-15] MEDS: ACETAMINOPHEN SOLN 325 MG/10.15 ML UDCUP NG PRN (14:49)
[2017-05-15] MEDS: DEXTROSE 5%-NORMAL SALINE 1,000 ML IV PRN (14:53)
[2017-05-15] MEDS: ROPINIROLE HCL 0.25 MG TABLET PO SCH (21:58)
[2017-05-16] MEDS: INSULIN REG, HUMAN 100 UNIT/ML 3 ML VIAL (PYX) SUBCUT PRN (00:11)
[2017-05-16] MEDS: ONDANSETRON HCL INJ/PF 4 MG/2 ML SDV IV PRN ×3 (01:10→21:09)
[2017-05-16] MEDS: OLANZAPINE INJ/PF 10 MG SDV IM SCH ×2 (05:23→19:02)
[2017-05-16] MEDS: HYDROCORTISONE SOD SUCCINATE INJ/PF 100 MG/2 ML SDV IV SCH ×4 (05:23→23:54)
[2017-05-16 06:15] LABS: HEMATOCRIT 43.2 % (36.0-47.0); HEMOGLOBIN 13.5 g/dL (12.0-15.5); HGB HCT DIFFERENCE -2.7; MEAN CORPUSCULAR HEMOGLOBIN 27.2 pg (27.0-33.4); MEAN CORPUSCULAR HGB CONC 31.3 g/dL (32.0-36.0); MEAN CORPUSCULAR VOLUME 87 fl (80-97); RED BLOOD COUNT 4.98 10^6/uL (3.72-5.28); RED CELL DISTRIBUTION WIDTH 22.7 % (11.5-14.0); WHITE BLOOD COUNT 10.8 10^3/uL (4.0-10.5)
[2017-05-16 06:22] LABS: BLOOD UREA NITROGEN 28 mg/dL (7-20); CALCIUM 7.7 mg/dL (8.4-10.2); CHLORIDE 99 mmol/L (98-107); CREATININE RESULT 0.31 mg/dL (0.52-1.25); GLUCOSE 149 mg/dL (75-110); POTASSIUM 3.3 mmol/L (3.6-5.0)
[2017-05-16 06:41] LABS: SODIUM 149.1 mmol/L (137-145)
[2017-05-16 06:50] LABS: ANION GAP 3 (5-19); CARBON DIOXIDE 47 mmol/L (22-30)
[2017-05-16 07:04] LABS: BAND NEUTROPHILS % (MANUAL) 3 % (3-5); BASOPHILS % (MANUAL) 0 % (0-2); EOSINOPHILS % (MANUAL) 0 % (0-6); LYMPHOCYTES % (MANUAL) 2 % (13-45); TOTAL CELLS COUNTED 100
[2017-05-16 07:05] LABS: HYPOCHROMASIA SLIGHT
[2017-05-16 07:06] LABS: ANISOCYTOSIS 3+
[2017-05-16 07:11] LABS: POIKILOCYTOSIS 1+
[2017-05-16 07:12] LABS: OVALOCYTES 1+; TARGET CELLS SLIGHT
[2017-05-16] MEDS: POTASSIUM CHLORIDE 20 MEQ/15 ML UDCUP NG SCH ×2 (10:05→21:10)
[2017-05-16] MEDS: FLUTICASONE/SALMETEROL DISKUS 250-50 MCG/DOSE IH SCH ×2 (10:05→21:09)
[2017-05-16] MEDS: CITALOPRAM HYDROBROMIDE 20 MG TABLET NG SCH (10:05)
[2017-05-16] MEDS: COLLAGENASE CLOSTRIDIUM HIST. OINT 30 GM TOP SCH (10:05)
[2017-05-16] MEDS: LEVOTHYROXINE SODIUM INJ/PF 0.1 MG SDV IV SCH (10:06)
[2017-05-16] MEDS: DEXTROSE 5%-NORMAL SALINE 1,000 ML IV PRN (10:26)
--- NOTE | 2017-05-16 10:51 | PDOC PROGRESS REPORT ---
Subjective Progress Note for:: 05/16/17 Subjective:: Patient is alert and is answering questions today. Physical Exam Vital Signs: Temp Pulse Resp BP Pulse Ox 98.4 F 103 H 17 134/88 H 97 05/16/17 07:54 05/16/17 08:21 05/16/17 08:21 05/16/17 07:54 05/16/17 08:21 Intake & Output 05/15/17 05/16/17 05/17/17 06:59 06:59 06:59 Intake Total 1490 1300 Output Total 1320 575 Balance 170 725 Weight 52.3 kg 61.6 kg General appearance: PRESENT: no acute distress Eye exam: PRESENT: conjunctiva pink. ABSENT: scleral icterus Mouth exam: PRESENT: moist, tongue midline Neck exam: ABSENT: JVD Respiratory exam: PRESENT: clear to auscultation gilles. ABSENT: rales, rhonchi, wheezes Cardiovascular exam: PRESENT: RRR. ABSENT: diastolic murmur, rubs, systolic murmur GI/Abdominal exam: PRESENT: normal bowel sounds, soft. ABSENT: distended, guarding, mass, organolmegaly, rebound, tenderness Extremities exam: PRESENT: pedal edema. ABSENT: calf tenderness, clubbing Neurological exam: PRESENT: alert, awake, oriented to person, oriented to place , oriented to time, oriented to situation, CN II-XII grossly intact. ABSENT: motor sensory deficit Psychiatric exam: PRESENT: flat affect Skin exam: PRESENT: other - Left gluteal fold area shows an eschar approximately 1-1/2 inch in diameter. Patient also has 1 inch area on the sacral area that appears to be stage II. Results Laboratory Results: 05/16/17 05:10 05/16/17 05:10 05/16/17 05/16/17 05:10 05:10 WBC 10.8 H RBC 4.98 Hgb 13.5 Hct 43.2 MCV 87 MCH 27.2 MCHC 31.3 L RDW 22.7 H Plt Count 94 L Seg Neutrophils % Not Reportable Lymphocytes % Not Reportable Monocytes % Not Reportable Eosinophils % Not Reportable Basophils % Not Reportable Absolute Neutrophils Not Reportable Absolute Lymphocytes Not Reportable Absolute Monocytes Not Reportable Absolute Eosinophils Not Reportable Absolute Basophils Not Reportable Sodium 149.1 H Potassium 3.3 L Chloride 99 Carbon Dioxide 47 H* Anion Gap 3 L BUN 28 H Creatinine 0.31 L Est GFR ( Amer) > 60 Est GFR (Non-Af Amer) > 60 Glucose 149 H Calcium 7.7 L 05/03/17 05/06/17 19:40 22:18 Troponin I 0.024 NT-Pro-B Natriuret Pep 6660 H Impressions: Head CT 05/06/17 00:00 IMPRESSION: No hemorrhage. Areas of low density in the white matter most likely due to chronic micro-vascular ischemic change. KUB X-Ray 05/06/17 00:00 IMPRESSION: Left lower lobe collapse and consolidation worrisome for pneumonia Grossly nonobstructive bowel gas pattern. Clips right upper quadrant post cholecystectomy. Daniel catheter in the bladder. Chest X-Ray 05/08/17 00:00 IMPRESSION: Small bilateral pleural effusions. Left lower lobe pneumonia. Limited right lower lobe pneumonia cannot be excluded. Gastrostomy Tube Placement 05/11/17 00:00 IMPRESSION: Successful fluoroscopic guided placement of a [place] tube. Guidance Fluoroscopy 05/11/17 09:50 IMPRESSION: Successful fluoroscopic guided placement of a [place] tube. Assessment & Plan - Diagnosis (1) Pneumonia Qualifiers: Pneumonia type: due to unspecified organism Is this a current diagnosis for this admission?: Yes Plan: Patient is growing out Morganella and staph. Patient has completed a course of antibiotics. (2) Malnutrition Qualifiers: Malnutrition type: unspecified type Qualified Code(s): E46 - Unspecified protein-calorie malnutrition Is this a current diagnosis for this admission?: Yes Plan: Getting tube feeds through with her NG. Will continue her regular diet. (3) Hypertension Qualifiers: Hypertension type: essential hypertension Qualified Code(s): I10 - Essential (primary) hypertension Is this a current diagnosis for this admission?: Yes Plan: Stable (4) Depression Qualifiers: Depression Type: unspecified Qualified Code(s): F32.9 - Major depressive disorder, single episode, unspecified Is this a current diagnosis for this admission?: Yes Plan: Continue with Zyprexa and Celexa. (5) Decubitus ulcer Qualifiers: Pressure ulcer location: thigh Pressure ulcer stage: stage 2 Laterality: left Qualified Code(s): L89.222 - Pressure ulcer of left hip, stage 2 Is this a current diagnosis for this admission?: Yes Plan: Continue with local wound care. (6) Hypothyroidism Qualifiers: Hypothyroidism type: unspecified Qualified Code(s): E03.9 - Hypothyroidism , unspecified Is this a current diagnosis for this admission?: Yes Plan: Continue with Synthroid. (7) Myxedema Is this a current diagnosis for this admission?: Yes Plan: Patient is on Synthroid and Solu-Medrol. - Time Time Spent with patient: 25-34 minutes - Inpatient Certification Medical Necessity: Need Close Monitoring Due to Risk of Patient Decompensation
[2017-05-16] MEDS: ACETAMINOPHEN SOLN 325 MG/10.15 ML UDCUP NG PRN (13:12)
[2017-05-16] MEDS ORDERED: OLANZAPINE INJ/PF 10 MG SDV IM ONE (20:48)
[2017-05-16] MEDS: ROPINIROLE HCL 0.25 MG TABLET PO SCH (21:09)
[2017-05-17] MEDS: OLANZAPINE INJ/PF 10 MG SDV IM SCH ×2 (05:06→17:31)
[2017-05-17] MEDS: HYDROCORTISONE SOD SUCCINATE INJ/PF 100 MG/2 ML SDV IV SCH ×4 (05:06→22:36)
[2017-05-17 05:44] LABS: HEMATOCRIT 41.5 % (36.0-47.0); HEMOGLOBIN 12.9 g/dL (12.0-15.5); HGB HCT DIFFERENCE -2.8; MEAN CORPUSCULAR HEMOGLOBIN 27.2 pg (27.0-33.4); MEAN CORPUSCULAR HGB CONC 31.1 g/dL (32.0-36.0); MEAN CORPUSCULAR VOLUME 87 fl (80-97); RED BLOOD COUNT 4.76 10^6/uL (3.72-5.28)
[2017-05-17 05:53] LABS: BLOOD UREA NITROGEN 27 mg/dL (7-20); CALCIUM 7.5 mg/dL (8.4-10.2); CHLORIDE 101 mmol/L (98-107); CREATININE RESULT 0.28 mg/dL (0.52-1.25); GLUCOSE 159 mg/dL (75-110); POTASSIUM 3.5 mmol/L (3.6-5.0)
[2017-05-17 06:12] LABS: SODIUM 148.9 mmol/L (137-145)
[2017-05-17 06:16] LABS: BAND NEUTROPHILS % (MANUAL) 1 % (3-5); BASOPHILS % (MANUAL) 0 % (0-2); EOSINOPHILS % (MANUAL) 0 % (0-6); HYPOCHROMASIA SLIGHT; LYMPHOCYTES % (MANUAL) 2 % (13-45); TOTAL CELLS COUNTED 100
[2017-05-17 06:17] LABS: ANISOCYTOSIS 3+; OVALOCYTES 1+; POIKILOCYTOSIS 2+; TARGET CELLS 1+; TEAR DROP CELLS 1+
[2017-05-17 06:23] LABS: ANION GAP 3 (5-19)
[2017-05-17 06:24] LABS: CARBON DIOXIDE 45 mmol/L (22-30)
--- NOTE | 2017-05-17 10:00 | PDOC PROGRESS REPORT ---
Subjective Progress Note for:: 05/17/17 Subjective:: Patient is alert and is answering questions today. Physical Exam Vital Signs: Temp Pulse Resp BP Pulse Ox 98.6 F 101 H 23 H 130/80 H 97 05/17/17 08:02 05/17/17 08:02 05/17/17 08:02 05/17/17 08:02 05/17/17 09:39 Intake & Output 05/16/17 05/17/17 05/18/17 06:59 06:59 06:59 Intake Total 1300 2620 Output Total 575 1525 Balance 725 1095 Weight 61.6 kg 62.8 kg General appearance: PRESENT: no acute distress Eye exam: PRESENT: conjunctiva pink. ABSENT: scleral icterus Mouth exam: PRESENT: moist, tongue midline Neck exam: ABSENT: JVD Respiratory exam: PRESENT: clear to auscultation gilles. ABSENT: rales, rhonchi, wheezes Cardiovascular exam: PRESENT: RRR. ABSENT: diastolic murmur, rubs, systolic murmur GI/Abdominal exam: PRESENT: normal bowel sounds, soft. ABSENT: distended, guarding, mass, organolmegaly, rebound, tenderness Extremities exam: PRESENT: pedal edema, +1 edema. ABSENT: calf tenderness, clubbing Neurological exam: PRESENT: alert, awake, oriented to person, oriented to place , oriented to time, oriented to situation, CN II-XII grossly intact. ABSENT: motor sensory deficit Psychiatric exam: PRESENT: flat affect Skin exam: PRESENT: other - Dressings in place in the sacral decubitus. Results Laboratory Results: 05/17/17 05:15 05/17/17 05:15 05/17/17 05/17/17 05:15 05:15 WBC 10.0 RBC 4.76 Hgb 12.9 Hct 41.5 MCV 87 MCH 27.2 MCHC 31.1 L RDW 23.0 H Plt Count 88 L Seg Neutrophils % Not Reportable Lymphocytes % Not Reportable Monocytes % Not Reportable Eosinophils % Not Reportable Basophils % Not Reportable Absolute Neutrophils Not Reportable Absolute Lymphocytes Not Reportable Absolute Monocytes Not Reportable Absolute Eosinophils Not Reportable Absolute Basophils Not Reportable Sodium 148.9 H Potassium 3.5 L Chloride 101 Carbon Dioxide 45 H* Anion Gap 3 L BUN 27 H Creatinine 0.28 L Est GFR ( Amer) > 60 Est GFR (Non-Af Amer) > 60 Glucose 159 H Calcium 7.5 L 05/03/17 05/06/17 19:40 22:18 Troponin I 0.024 NT-Pro-B Natriuret Pep 6660 H Impressions: Head CT 05/06/17 00:00 IMPRESSION: No hemorrhage. Areas of low density in the white matter most likely due to chronic micro-vascular ischemic change. KUB X-Ray 05/06/17 00:00 IMPRESSION: Left lower lobe collapse and consolidation worrisome for pneumonia Grossly nonobstructive bowel gas pattern. Clips right upper quadrant post cholecystectomy. Daniel catheter in the bladder. Chest X-Ray 05/08/17 00:00 IMPRESSION: Small bilateral pleural effusions. Left lower lobe pneumonia. Limited right lower lobe pneumonia cannot be excluded. Gastrostomy Tube Placement 05/11/17 00:00 IMPRESSION: Successful fluoroscopic guided placement of a NJ tube. Guidance Fluoroscopy 05/11/17 09:50 IMPRESSION: Successful fluoroscopic guided placement of a [place] tube. Assessment & Plan - Diagnosis (1) Pneumonia Qualifiers: Pneumonia type: due to unspecified organism Is this a current diagnosis for this admission?: Yes Plan: Patient is growing out Morganella and staph. Patient has completed a course of antibiotics. (2) Malnutrition Qualifiers: Malnutrition type: unspecified type Qualified Code(s): E46 - Unspecified protein-calorie malnutrition Is this a current diagnosis for this admission?: Yes Plan: Getting tube feeds through with her NG. Will continue her regular diet. (3) Hypertension Qualifiers: Hypertension type: essential hypertension Qualified Code(s): I10 - Essential (primary) hypertension Is this a current diagnosis for this admission?: Yes Plan: Stable (4) Depression Qualifiers: Depression Type: unspecified Qualified Code(s): F32.9 - Major depressive disorder, single episode, unspecified Is this a current diagnosis for this admission?: Yes Plan: Continue with Zyprexa and Celexa. (5) Decubitus ulcer Qualifiers: Pressure ulcer location: thigh Pressure ulcer stage: stage 2 Laterality: left Qualified Code(s): L89.222 - Pressure ulcer of left hip, stage 2 Is this a current diagnosis for this admission?: Yes Plan: Continue with local wound care. (6) Hypothyroidism Qualifiers: Hypothyroidism type: unspecified Qualified Code(s): E03.9 - Hypothyroidism , unspecified Is this a current diagnosis for this admission?: Yes Plan: Continue with Synthroid. (7) Myxedema Is this a current diagnosis for this admission?: Yes Plan: Patient is on Synthroid and Solu-Medrol. - Time Time Spent with patient: 25-34 minutes - Inpatient Certification Medical Necessity: Need Close Monitoring Due to Risk of Patient Decompensation
[2017-05-17] MEDS ORDERED: DEXTROSE 40% GEL 15 GM TUBE PO PRN (11:30)
[2017-05-17] MEDS ORDERED: DEXTROSE 40% GEL 15 GM TUBE X 2 PO PRN (11:30)
[2017-05-17] MEDS ORDERED: ONDANSETRON 4 MG TAB.RAPDIS PO PRN (11:30)
[2017-05-17] MEDS: COLLAGENASE CLOSTRIDIUM HIST. OINT 30 GM TOP SCH (12:07)
[2017-05-17] MEDS: LEVOTHYROXINE SODIUM INJ/PF 0.1 MG SDV IV SCH (12:08)
[2017-05-17] MEDS: FLUTICASONE/SALMETEROL DISKUS 250-50 MCG/DOSE IH SCH ×2 (12:08→22:37)
[2017-05-17] MEDS ORDERED: POTASSIUM CHLORIDE 10 MEQ TABLET.SA PO ONE (13:00)
[2017-05-17] MEDS ORDERED: CITALOPRAM HYDROBROMIDE 20 MG TABLET PO ONE (13:00)
[2017-05-17] MEDS: NORMAL SALINE INJ/PF 0.9% 10 ML SDV IV PRN (13:18)
[2017-05-17] MEDS ORDERED: MORPHINE SULFATE 0.1 MG/ML ORAL SOLN 100 ML (NSY) PO SCH (14:00)
[2017-05-17] MEDS ORDERED: METRONIDAZOLE 500 MG TABLET PO ONE (16:30)
[2017-05-17 21:39] LABS: HEMATOCRIT 44.8 % (36.0-47.0); HGB HCT DIFFERENCE -2.8; MEAN CORPUSCULAR HEMOGLOBIN 27.5 pg (27.0-33.4); MEAN CORPUSCULAR HGB CONC 31.4 g/dL (32.0-36.0); MEAN CORPUSCULAR VOLUME 88 fl (80-97); RED BLOOD COUNT 5.11 10^6/uL (3.72-5.28); RED CELL DISTRIBUTION WIDTH 22.5 % (11.5-14.0); WHITE BLOOD COUNT 11.4 10^3/uL (4.0-10.5)
[2017-05-17 21:47] LABS: ALANINE AMINOTRANSFERASE 73 U/L (9-52); ALBUMIN 2.7 g/dL (3.5-5.0); ALKALINE PHOSPHATASE 174 U/L (38-126); ASPARTATE AMINO TRANSFERASE 60 U/L (14-36); BILIRUBIN,DIRECT 0.6 mg/dL (0.0-0.4); BILIRUBIN,TOTAL 1.3 mg/dL (0.2-1.3); BLOOD UREA NITROGEN 27 mg/dL (7-20); CALCIUM 7.8 mg/dL (8.4-10.2); CHLORIDE 99 mmol/L (98-107); CREATININE RESULT 0.26 mg/dL (0.52-1.25); GLUCOSE 162 mg/dL (75-110); PHOSPHORUS 2.4 mg/dL (2.5-4.5); POTASSIUM 3.6 mmol/L (3.6-5.0); TOTAL PROTEIN 4.9 g/dL (6.3-8.2)
[2017-05-17] MEDS ORDERED: POTASSIUM CHLORIDE 20 MEQ/15 ML UDCUP PO SCH (22:00)
[2017-05-17 22:15] LABS: SODIUM 148.6 mmol/L (137-145)
[2017-05-17 22:18] LABS: BAND NEUTROPHILS % (MANUAL) 3 % (3-5); BASOPHILS % (MANUAL) 0 % (0-2); EOSINOPHILS % (MANUAL) 0 % (0-6); LYMPHOCYTES % (MANUAL) 1 % (13-45); TOTAL CELLS COUNTED 100
[2017-05-17 22:19] LABS: ANISOCYTOSIS 3+
[2017-05-17 22:20] LABS: OVALOCYTES SLIGHT; POIKILOCYTOSIS SLIGHT; TARGET CELLS 1+
[2017-05-17 22:22] LABS: HYPOCHROMASIA SLIGHT; TEAR DROP CELLS SLIGHT
[2017-05-17 22:23] LABS: ANION GAP 2 (5-19); CARBON DIOXIDE 48 mmol/L (22-30); STOMATOCYTES SLIGHT
[2017-05-17] MEDS: METRONIDAZOLE 500 MG TABLET PO SCH (22:36)
[2017-05-17] MEDS: POTASSIUM CHLORIDE 10 MEQ TABLET.SA PO SCH (22:37)
[2017-05-17] MEDS: ROPINIROLE HCL 0.25 MG TABLET PO SCH (22:37)
[2017-05-18] MEDS: ONDANSETRON HCL INJ/PF 4 MG/2 ML SDV IV PRN (06:12)
[2017-05-18] MEDS: OLANZAPINE INJ/PF 10 MG SDV IM SCH ×2 (06:35→17:39)
[2017-05-18] MEDS: METRONIDAZOLE 500 MG TABLET PO SCH ×3 (06:35→22:35)
[2017-05-18] MEDS: HYDROCORTISONE SOD SUCCINATE INJ/PF 100 MG/2 ML SDV IV SCH ×4 (06:35→22:35)
[2017-05-18 07:10] LABS: HEMATOCRIT 42.6 % (36.0-47.0); HEMOGLOBIN 13.2 g/dL (12.0-15.5); MEAN CORPUSCULAR HEMOGLOBIN 27.3 pg (27.0-33.4); MEAN CORPUSCULAR VOLUME 88 fl (80-97); RED BLOOD COUNT 4.84 10^6/uL (3.72-5.28); RED CELL DISTRIBUTION WIDTH 22.8 % (11.5-14.0); WHITE BLOOD COUNT 10.7 10^3/uL (4.0-10.5)
[2017-05-18 07:14] LABS: BLOOD UREA NITROGEN 30 mg/dL (7-20); CALCIUM 7.7 mg/dL (8.4-10.2); CHLORIDE 99 mmol/L (98-107); CREATININE RESULT 0.23 mg/dL (0.52-1.25); GLUCOSE 132 mg/dL (75-110); POTASSIUM 3.7 mmol/L (3.6-5.0); SODIUM 149.9 mmol/L (137-145)
[2017-05-18 07:28] LABS: ANION GAP 3 (5-19); CARBON DIOXIDE 48 mmol/L (22-30)
[2017-05-18 07:38] LABS: BAND NEUTROPHILS % (MANUAL) 3 % (3-5); BASOPHILS % (MANUAL) 0 % (0-2); EOSINOPHILS % (MANUAL) 0 % (0-6); LYMPHOCYTES % (MANUAL) 3 % (13-45); TOTAL CELLS COUNTED 100
[2017-05-18 07:41] LABS: ANISOCYTOSIS 3+; HYPOCHROMASIA SLIGHT; OVALOCYTES SLIGHT; POIKILOCYTOSIS SLIGHT; SPHEROCYTES SLIGHT; TARGET CELLS 1+; TEAR DROP CELLS SLIGHT
[2017-05-18] MEDS: DEXTROSE 5%-NORMAL SALINE 1,000 ML IV PRN (09:48)
[2017-05-18] MEDS: CITALOPRAM HYDROBROMIDE 20 MG TABLET PO SCH (09:53)
[2017-05-18] MEDS: COLLAGENASE CLOSTRIDIUM HIST. OINT 30 GM TOP SCH (09:53)
[2017-05-18] MEDS: LEVOTHYROXINE SODIUM INJ/PF 0.1 MG SDV IV SCH (09:53)
[2017-05-18] MEDS: POTASSIUM CHLORIDE 10 MEQ TABLET.SA PO SCH ×2 (09:53→22:35)
[2017-05-18] MEDS: FLUTICASONE/SALMETEROL DISKUS 250-50 MCG/DOSE IH SCH ×2 (09:54→22:35)
--- NOTE | 2017-05-18 14:43 | PDOC PROGRESS REPORT ---
Subjective Progress Note for:: 05/18/17 Subjective:: Patient is alert and is answering questions today. Physical Exam Vital Signs: Temp Pulse Resp BP Pulse Ox 97.4 F 96 20 139/88 H 99 05/18/17 04:00 05/18/17 14:00 05/18/17 04:00 05/18/17 04:00 05/18/17 08:35 Intake & Output 05/17/17 05/18/17 05/19/17 06:59 06:59 06:59 Intake Total 3220 3832 Output Total 1525 1100 Balance 1695 2732 Weight 62.8 kg 61.5 kg General appearance: PRESENT: no acute distress Eye exam: PRESENT: conjunctiva pink. ABSENT: scleral icterus Ear exam: PRESENT: normal external ear exam Mouth exam: PRESENT: moist, tongue midline Neck exam: ABSENT: JVD Respiratory exam: PRESENT: clear to auscultation gilles. ABSENT: rales, rhonchi, wheezes Cardiovascular exam: PRESENT: RRR. ABSENT: diastolic murmur, rubs, systolic murmur GI/Abdominal exam: PRESENT: normal bowel sounds, soft. ABSENT: distended, guarding, mass, organolmegaly, rebound, tenderness Extremities exam: PRESENT: pedal edema. ABSENT: calf tenderness, clubbing Neurological exam: PRESENT: alert, awake, oriented to person, oriented to place , oriented to time, oriented to situation, CN II-XII grossly intact. ABSENT: motor sensory deficit Psychiatric exam: PRESENT: depressed Skin exam: PRESENT: other - Sacral decub with dressing in place. Also a ulcer on the left gluteal fold. Bilateral heel ulcers. Results Laboratory Results: 05/18/17 06:35 05/18/17 06:35 05/17/17 05/17/17 05/18/17 21:15 21:15 06:35 WBC 11.4 H RBC 5.11 Hgb 14.0 Hct 44.8 MCV 88 MCH 27.5 MCHC 31.4 L RDW 22.5 H Plt Count 83 L Seg Neutrophils % Not Reportable Lymphocytes % Not Reportable Monocytes % Not Reportable Eosinophils % Not Reportable Basophils % Not Reportable Absolute Neutrophils Not Reportable Absolute Lymphocytes Not Reportable Absolute Monocytes Not Reportable Absolute Eosinophils Not Reportable Absolute Basophils Not Reportable Sodium 148.6 H 149.9 H Potassium 3.6 3.7 Chloride 99 99 Carbon Dioxide 48 H* 48 H* Anion Gap 2 L 3 L BUN 27 H 30 H Creatinine 0.26 L 0.23 L Est GFR ( Amer) > 60 > 60 Est GFR (Non-Af Amer) > 60 > 60 Glucose 162 H 132 H Calcium 7.8 L 7.7 L Phosphorus 2.4 L Magnesium 2.0 Total Bilirubin 1.3 AST 60 H ALT 73 H Alkaline Phosphatase 174 H Total Protein 4.9 L Albumin 2.7 L 05/18/17 06:35 WBC 10.7 H RBC 4.84 Hgb 13.2 Hct 42.6 MCV 88 MCH 27.3 MCHC 31.0 L RDW 22.8 H Plt Count 83 L Seg Neutrophils % Not Reportable Lymphocytes % Not Reportable Monocytes % Not Reportable Eosinophils % Not Reportable Basophils % Not Reportable Absolute Neutrophils Not Reportable Absolute Lymphocytes Not Reportable Absolute Monocytes Not Reportable Absolute Eosinophils Not Reportable Absolute Basophils Not Reportable Sodium Potassium Chloride Carbon Dioxide Anion Gap BUN Creatinine Est GFR ( Amer) Est GFR (Non-Af Amer) Glucose Calcium Phosphorus Magnesium Total Bilirubin AST ALT Alkaline Phosphatase Total Protein Albumin 05/03/17 05/06/17 19:40 22:18 Troponin I 0.024 NT-Pro-B Natriuret Pep 6660 H Impressions: Head CT 05/06/17 00:00 IMPRESSION: No hemorrhage. Areas of low density in the white matter most likely due to chronic micro-vascular ischemic change. KUB X-Ray 05/06/17 00:00 IMPRESSION: Left lower lobe collapse and consolidation worrisome for pneumonia Grossly nonobstructive bowel gas pattern. Clips right upper quadrant post cholecystectomy. Daniel catheter in the bladder. Chest X-Ray 05/08/17 00:00 IMPRESSION: Small bilateral pleural effusions. Left lower lobe pneumonia. Limited right lower lobe pneumonia cannot be excluded. Gastrostomy Tube Placement 05/11/17 00:00 IMPRESSION: Successful fluoroscopic guided placement of a [place] tube. Guidance Fluoroscopy 05/11/17 09:50 IMPRESSION: Successful fluoroscopic guided placement of a [place] tube. Assessment & Plan - Diagnosis (1) Pneumonia Qualifiers: Pneumonia type: due to unspecified organism Is this a current diagnosis for this admission?: Yes Plan: Patient is growing out Morganella and staph. Patient has completed a course of antibiotics. (2) Malnutrition Qualifiers: Malnutrition type: unspecified type Qualified Code(s): E46 - Unspecified protein-calorie malnutrition Is this a current diagnosis for this admission?: Yes Plan: Getting tube feeds through with her NG. Will continue her regular diet. She is taking very little in orally. (3) Hypertension Qualifiers: Hypertension type: essential hypertension Qualified Code(s): I10 - Essential (primary) hypertension Is this a current diagnosis for this admission?: Yes Plan: Stable (4) Depression Qualifiers: Depression Type: unspecified Qualified Code(s): F32.9 - Major depressive disorder, single episode, unspecified Is this a current diagnosis for this admission?: Yes Plan: Continue with Zyprexa and Celexa. (5) Decubitus ulcer Qualifiers: Pressure ulcer location: thigh Pressure ulcer stage: stage 2 Laterality: left Qualified Code(s): L89.222 - Pressure ulcer of left hip, stage 2 Is this a current diagnosis for this admission?: Yes Plan: Continue with local wound care. (6) Hypothyroidism Qualifiers: Hypothyroidism type: unspecified Qualified Code(s): E03.9 - Hypothyroidism , unspecified Is this a current diagnosis for this admission?: Yes Plan: Continue with Synthroid. (7) Myxedema Is this a current diagnosis for this admission?: Yes Plan: Patient is on Synthroid and Solu-Medrol. - Time Time Spent with patient: 25-34 minutes - Inpatient Certification Medical Necessity: Need Close Monitoring Due to Risk of Patient Decompensation - Plan Summary Plan Summary: The patient still reports feeling depressed and reports she has no reason to live. Will continue the antidepressants. She may need inpatient psychiatric hospital stay.
[2017-05-18] MEDS: ACETAMINOPHEN SOLN 325 MG/10.15 ML UDCUP NG PRN (20:39)
[2017-05-18] MEDS: ROPINIROLE HCL 0.25 MG TABLET PO SCH (22:35)
[2017-05-19] MEDS ORDERED: NORMAL SALINE 1000 ML 1,000 ML IV PRN (02:27)
[2017-05-19] MEDS ORDERED: NORMAL SALINE 0.9% IV PRN (04:01)
[2017-05-19] MEDS: HYDROCORTISONE SOD SUCCINATE INJ/PF 100 MG/2 ML SDV IV SCH ×2 (05:48→11:10)
[2017-05-19] MEDS: METRONIDAZOLE 500 MG TABLET PO SCH (05:48)
[2017-05-19 06:09] LABS: HEMATOCRIT 38.8 % (36.0-47.0); HEMOGLOBIN 12.1 g/dL (12.0-15.5); HGB HCT DIFFERENCE -2.5; MEAN CORPUSCULAR HEMOGLOBIN 27.6 pg (27.0-33.4); MEAN CORPUSCULAR VOLUME 89 fl (80-97); RED BLOOD COUNT 4.37 10^6/uL (3.72-5.28); RED CELL DISTRIBUTION WIDTH 22.7 % (11.5-14.0); WHITE BLOOD COUNT 9.4 10^3/uL (4.0-10.5)
[2017-05-19 06:23] LABS: BLOOD UREA NITROGEN 31 mg/dL (7-20); CALCIUM 7.8 mg/dL (8.4-10.2); CREATININE RESULT 0.27 mg/dL (0.52-1.25); GLUCOSE 166 mg/dL (75-110); POTASSIUM 3.8 mmol/L (3.6-5.0)
[2017-05-19 06:35] LABS: CHLORIDE 101 mmol/L (98-107); SODIUM 149.7 mmol/L (137-145)
[2017-05-19 06:43] LABS: ANION GAP 0 (5-19); CARBON DIOXIDE 49 mmol/L (22-30)
[2017-05-19 07:03] LABS: BAND NEUTROPHILS % (MANUAL) 9 % (3-5); BASOPHILS % (MANUAL) 0 % (0-2); EOSINOPHILS % (MANUAL) 0 % (0-6); LYMPHOCYTES % (MANUAL) 2 % (13-45); TOTAL CELLS COUNTED 100
[2017-05-19 07:09] LABS: TOXIC GRANULATION SLIGHT; TOXIC VACUOLATION PRESENT
[2017-05-19 07:10] LABS: ANISOCYTOSIS 3+; OVALOCYTES SLIGHT; POIKILOCYTOSIS SLIGHT; TARGET CELLS SLIGHT
[2017-05-19] MEDS: CITALOPRAM HYDROBROMIDE 20 MG TABLET PO SCH (11:09)
[2017-05-19] MEDS: LEVOTHYROXINE SODIUM INJ/PF 0.1 MG SDV IV SCH (11:10)
[2017-05-19] MEDS: COLLAGENASE CLOSTRIDIUM HIST. OINT 30 GM TOP SCH (11:11)
[2017-05-19] MEDS: FLUTICASONE/SALMETEROL DISKUS 250-50 MCG/DOSE IH SCH ×2 (11:11→22:33)
[2017-05-19] MEDS: OLANZAPINE INJ/PF 10 MG SDV IM SCH ×2 (11:11→18:02)
[2017-05-19] MEDS: POTASSIUM CHLORIDE 10 MEQ TABLET.SA PO SCH (11:11)
[2017-05-19] MEDS ORDERED: LEVOTHYROXINE SODIUM INJ/PF 0.1 MG SDV IV SCH (11:25)
--- NOTE | 2017-05-19 11:35 | PDOC PROGRESS REPORT ---
Subjective Progress Note for:: 05/19/17 Subjective:: More awake and alert this morning. Still with very poor oral intake. Developed diarrhea on Clostridium difficile. No nausea or vomiting. No PND orthopnea. Patient still remain on the BiPAP. Physical Exam Vital Signs: Temp Pulse Resp BP Pulse Ox 97.4 F 109 H 17 132/76 H 95 05/19/17 04:32 05/19/17 07:00 05/19/17 08:30 05/19/17 04:32 05/19/17 08:30 Intake & Output 05/18/17 05/19/17 05/20/17 06:59 06:59 06:59 Intake Total 3832 2520 Output Total 1100 160 Balance 2732 2360 Weight 61.5 kg 61.5 kg General appearance: PRESENT: no acute distress, thin, other - On BiPAP Head exam: PRESENT: normocephalic Eye exam: PRESENT: EOMI Mouth exam: PRESENT: moist, neck supple Neck exam: ABSENT: JVD Respiratory exam: PRESENT: rhonchi Cardiovascular exam: PRESENT: RRR, tachycardia. ABSENT: gallop GI/Abdominal exam: PRESENT: soft. ABSENT: distended, tenderness Extremities exam: PRESENT: +1 edema - Generalized Neurological exam: PRESENT: alert, awake Skin exam: PRESENT: dry, warm. ABSENT: cyanosis Results Laboratory Results: 05/19/17 05:30 05/19/17 05:30 05/19/17 05/19/17 05:30 05:30 WBC 9.4 RBC 4.37 Hgb 12.1 Hct 38.8 MCV 89 MCH 27.6 MCHC 31.0 L RDW 22.7 H Plt Count 86 L Seg Neutrophils % Not Reportable Lymphocytes % Not Reportable Monocytes % Not Reportable Eosinophils % Not Reportable Basophils % Not Reportable Absolute Neutrophils Not Reportable Absolute Lymphocytes Not Reportable Absolute Monocytes Not Reportable Absolute Eosinophils Not Reportable Absolute Basophils Not Reportable Sodium 149.7 H Potassium 3.8 Chloride 101 Carbon Dioxide 49 H* Anion Gap 0 L BUN 31 H Creatinine 0.27 L Est GFR ( Amer) > 60 Est GFR (Non-Af Amer) > 60 Glucose 166 H Calcium 7.8 L 05/03/17 05/06/17 19:40 22:18 Troponin I 0.024 NT-Pro-B Natriuret Pep 6660 H Impressions: Head CT 05/06/17 00:00 IMPRESSION: No hemorrhage. Areas of low density in the white matter most likely due to chronic micro-vascular ischemic change. KUB X-Ray 05/06/17 00:00 IMPRESSION: Left lower lobe collapse and consolidation worrisome for pneumonia Grossly nonobstructive bowel gas pattern. Clips right upper quadrant post cholecystectomy. Daniel catheter in the bladder. Chest X-Ray 05/08/17 00:00 IMPRESSION: Small bilateral pleural effusions. Left lower lobe pneumonia. Limited right lower lobe pneumonia cannot be excluded. Gastrostomy Tube Placement 05/11/17 00:00 IMPRESSION: Successful fluoroscopic guided placement of a NJ tube. Guidance Fluoroscopy 05/11/17 09:50 IMPRESSION: Successful fluoroscopic guided placement of a NJ tube. Assessment & Plan - Diagnosis (1) C. difficile diarrhea Is this a current diagnosis for this admission?: Yes (2) Hypercarbia Is this a current diagnosis for this admission?: Yes (3) Acute hypercapnic respiratory failure Is this a current diagnosis for this admission?: Yes (4) Pneumonia Qualifiers: Pneumonia type: due to unspecified organism Is this a current diagnosis for this admission?: Yes (5) UTI (urinary tract infection) Qualifiers: Urinary tract infection type: site unspecified Hematuria presence: without hematuria Qualified Code(s): N39.0 - Urinary tract infection, site not specified Is this a current diagnosis for this admission?: Yes (6) Myxedema Is this a current diagnosis for this admission?: Yes (7) Decubitus ulcer Qualifiers: Pressure ulcer location: thigh Pressure ulcer stage: stage 2 Laterality: left Qualified Code(s): L89.222 - Pressure ulcer of left hip, stage 2 Is this a current diagnosis for this admission?: Yes (8) Depression Qualifiers: Depression Type: unspecified Qualified Code(s): F32.9 - Major depressive disorder, single episode, unspecified Is this a current diagnosis for this admission?: Yes (9) Hypertension Qualifiers: Hypertension type: essential hypertension Qualified Code(s): I10 - Essential (primary) hypertension Is this a current diagnosis for this admission?: Yes (10) Malnutrition Qualifiers: Malnutrition type: unspecified type Qualified Code(s): E46 - Unspecified protein-calorie malnutrition Is this a current diagnosis for this admission?: Yes - Time Time Spent with patient: 25-34 minutes - Plan Summary Plan Summary: Patient is getting alkalotic. We will give Diamox. In the meantime we will discontinue intravenous fluid as she is she is getting more swollen. We will check a free T4. We will decrease Synthroid and discontinue steroids. Monitor electrolytes. Continue supportive care and tube feeds at this time. We will discuss with family regarding long-term care plan especially with feeding and for wound care as well. Patient completed antibiotic for skin infection and pneumonia. Continue antibiotic for Clostridium difficile colitis.
[2017-05-19] MEDS: ACETAZOLAMIDE 250 MG TABLET NG SCH ×2 (14:17→22:32)
[2017-05-19] MEDS: METRONIDAZOLE 500 MG/NS RTU 100 ML IV SCH ×2 (14:17→18:01)
[2017-05-19] MEDS: ROPINIROLE HCL 0.25 MG TABLET PO SCH (22:33)
[2017-05-20] MEDS: METRONIDAZOLE 500 MG/NS RTU 100 ML IV SCH ×4 (00:09→18:32)
[2017-05-20] MEDS: ACETAZOLAMIDE 250 MG TABLET NG SCH ×2 (05:32→13:54)
[2017-05-20] MEDS: OLANZAPINE INJ/PF 10 MG SDV IM SCH ×2 (06:07→18:32)
[2017-05-20 06:25] LABS: BLOOD UREA NITROGEN 32 mg/dL (7-20); CALCIUM 7.7 mg/dL (8.4-10.2); CHLORIDE 99 mmol/L (98-107); CREATININE RESULT 0.24 mg/dL (0.52-1.25); GLUCOSE 96 mg/dL (75-110); POTASSIUM 3.5 mmol/L (3.6-5.0)
[2017-05-20 06:39] LABS: ANION GAP -1 (5-19)
[2017-05-20 06:40] LABS: CARBON DIOXIDE 53 mmol/L (22-30)
--- NOTE | 2017-05-20 10:32 | PDOC PROGRESS REPORT ---
Subjective Progress Note for:: 05/20/17 Subjective:: Patient voiced against permanent feeding tube. Denies any discomfort at this time. No nausea or vomiting. Had 3 bowel movements reported. Denies any pain at this time. She is more awake and alert, responsive, engaging in conversation now than before. Physical Exam Vital Signs: Temp Pulse Resp BP Pulse Ox 97.4 F 103 H 24 H 114/63 96 05/19/17 23:47 05/20/17 05:05 05/20/17 08:35 05/20/17 05:05 05/20/17 08:35 Intake & Output 05/19/17 05/20/17 05/21/17 06:59 06:59 06:59 Intake Total 2520 900 Output Total 160 Balance 2360 900 Weight 61.5 kg 61.5 kg General appearance: PRESENT: cooperative, other - Anasarca Head exam: PRESENT: normocephalic Eye exam: PRESENT: EOMI Mouth exam: PRESENT: moist, neck supple Neck exam: ABSENT: JVD Respiratory exam: PRESENT: rhonchi - Bilateral. ABSENT: wheezes Cardiovascular exam: PRESENT: RRR. ABSENT: gallop GI/Abdominal exam: PRESENT: hypoactive bowel sounds, soft. ABSENT: tenderness Extremities exam: PRESENT: +1 edema Neurological exam: PRESENT: alert, awake, oriented to situation Skin exam: PRESENT: dry, warm. ABSENT: cyanosis Results Laboratory Results: 05/19/17 05:30 05/20/17 05:40 05/19/17 05/20/17 16:28 05:40 Sodium 151.0 H Potassium 3.5 L Chloride 99 Carbon Dioxide 53 H* Anion Gap -1 L BUN 32 H Creatinine 0.24 L Est GFR ( Amer) > 60 Est GFR (Non-Af Amer) > 60 Glucose 96 Calcium 7.7 L Free T4 0.90 05/03/17 05/06/17 19:40 22:18 Troponin I 0.024 NT-Pro-B Natriuret Pep 6660 H Impressions: Head CT 05/06/17 00:00 IMPRESSION: No hemorrhage. Areas of low density in the white matter most likely due to chronic micro-vascular ischemic change. KUB X-Ray 05/06/17 00:00 IMPRESSION: Left lower lobe collapse and consolidation worrisome for pneumonia Grossly nonobstructive bowel gas pattern. Clips right upper quadrant post cholecystectomy. Daniel catheter in the bladder. Chest X-Ray 05/08/17 00:00 IMPRESSION: Small bilateral pleural effusions. Left lower lobe pneumonia. Limited right lower lobe pneumonia cannot be excluded. Gastrostomy Tube Placement 05/11/17 00:00 IMPRESSION: Successful fluoroscopic guided placement of a [place] tube. Guidance Fluoroscopy 05/11/17 09:50 IMPRESSION: Successful fluoroscopic guided placement of a [place] tube. Assessment & Plan - Diagnosis (1) C. difficile diarrhea Is this a current diagnosis for this admission?: Yes (2) Hypercarbia Is this a current diagnosis for this admission?: Yes (3) Acute hypercapnic respiratory failure Is this a current diagnosis for this admission?: Yes (4) Pneumonia Qualifiers: Pneumonia type: due to unspecified organism Is this a current diagnosis for this admission?: Yes (5) UTI (urinary tract infection) Qualifiers: Urinary tract infection type: site unspecified Hematuria presence: without hematuria Qualified Code(s): N39.0 - Urinary tract infection, site not specified Is this a current diagnosis for this admission?: Yes (6) Myxedema Is this a current diagnosis for this admission?: Yes (7) Decubitus ulcer Qualifiers: Pressure ulcer location: thigh Pressure ulcer stage: stage 2 Laterality: left Qualified Code(s): L89.222 - Pressure ulcer of left hip, stage 2 Is this a current diagnosis for this admission?: Yes (8) Depression Qualifiers: Depression Type: unspecified Qualified Code(s): F32.9 - Major depressive disorder, single episode, unspecified Is this a current diagnosis for this admission?: Yes (9) Hypertension Qualifiers: Hypertension type: essential hypertension Qualified Code(s): I10 - Essential (primary) hypertension Is this a current diagnosis for this admission?: Yes (10) Malnutrition Qualifiers: Malnutrition type: unspecified type Qualified Code(s): E46 - Unspecified protein-calorie malnutrition Is this a current diagnosis for this admission?: Yes - Time Time Spent with patient: 25-34 minutes - Plan Summary Plan Summary: Begin lactobacillus. The patient reportedly has had long depression since her . He has been expressed that her will to live likewise was affected by the loss of her . She was and has been encouraged to take oral intake with no success. She refused permanent feeding tube. We will consult palliative care or hospice. In the meantime we will continue current treatment. We will replace potassium, increase free fluid on the Dobbhoff tube.
[2017-05-20] MEDS: FLUTICASONE/SALMETEROL DISKUS 250-50 MCG/DOSE IH SCH (11:17)
[2017-05-20] MEDS: CITALOPRAM HYDROBROMIDE 20 MG TABLET PO SCH (11:17)
[2017-05-20 13:24] VITALS: BP 107/74
[2017-05-20] MEDS: NORMAL SALINE INJ/PF 0.9% 10 ML SDV IV PRN (13:56)
[2017-05-20] MEDS ORDERED: LACTOBACILLUS ACIDOPHILUS 250 MG TAB GT SCH (18:00)
[2017-05-20] MEDS: COLLAGENASE CLOSTRIDIUM HIST. OINT 30 GM TOP SCH (18:32)
[2017-05-20] MEDS ORDERED: MORPHINE SULFATE 10 MG/ML INJ IV PRN (18:39)
[2017-05-20] MEDS ORDERED: LORAZEPAM INJ 2 MG/1 ML VIAL IV PRN (18:40)
--- NOTE | 2017-05-23 18:53 | Death Summary ---
Summary Date : 05/21/17 Time of :: 01:10 Autopsy: No Resuscitation Status: Comfort Measures Only Primary Care Provider: none - Final Diagnosis (1) Acute hypercapnic respiratory failure Is this a current diagnosis for this admission?: Yes (2) Pneumonia Is this a current diagnosis for this admission?: Yes (3) C. difficile diarrhea Is this a current diagnosis for this admission?: Yes (4) Hypercarbia Is this a current diagnosis for this admission?: Yes (5) UTI (urinary tract infection) Is this a current diagnosis for this admission?: Yes (6) Myxedema Is this a current diagnosis for this admission?: Yes (7) Decubitus ulcer Is this a current diagnosis for this admission?: Yes (8) Depression Is this a current diagnosis for this admission?: Yes (9) Hypertension Is this a current diagnosis for this admission?: Yes (10) Malnutrition Is this a current diagnosis for this admission?: Yes Hospital Course:: Cause of : ACUTE RESPIRATORY FAILURE PNEUMONIA The patient was admitted to the intensive care unit. Patient was started on broad-spectrum antibiotic for pneumonia and IV hydration. The patient was placed on supplemental oxygen with BiPAP. ABG reveals patient is a CO2 retainer. Patient was tried on bronchodilators as well as steroids. Thyroid panel suggestive of hypothyroidism and replacements were given. Eventually with the above treatment the patient was able to be weaned off the BiPAP. She however developed pleural effusion requiring some diuretics. Due to patient's severe depression she was referred to psychiatry and the patient was started on antidepressants. Her mental status fluctuates but lethargic most of the time. She was also noted to have significant third space fluid loss with edema and anasarca. A possibility of myxedema was considered although patient is not bradycardic. She was tried on intravenous steroid and Synthroid combination. The patient's mental status slightly improved and swallowing evaluation was performed and patient was able to tolerate some intake. However she refused to take anything orally including medications. She was placed on nasogastric tube and tube feedings were started. At the beginning when she was on BiPAP she was placed on TPN and when the BiPAP was discontinued the TPN was discontinued as well. He was maintained on nasogastric tube feedings when she was off the BiPAP. Patient completed treatment for pneumonia and she was transferred to telemetry [facility]. The family has been informed all throughout of the patients condition and no significant improvement overall and likewise lacking will from the patient to recover and cooperate with the treatment. Family has stated that since her , she went into severe depression and lack of willingness to live. She refused long-term feeding tube placement and oral medications. Her course was complicated by Clostridium difficile colitis treated with Flagyl. She started to developed shortness of breath again requiring BIPAP and decline in mental status. At this point the family was contacted again and after discussion regarding prognosis the patient's daughter , son, and brother they decided and made her DNR and eventual comfort measures only. Discontinuation of the BiPAP as well as medications were made and she was placed on Ativan and morphineand nasal canula O2 for comfort. Patient eventually expiredthe next day after she was placed on comfort measures only..
== END 2017-05-21 05:45 | DRG 166 ==
LOC: ER 15:03 → EH 18:41 → UNDOADMIN 18:45 → 3S 21:10 → ICU 05-05 07:07 → 3W 05-06 12:33 → ICU 05-06 22:01 → 4N 05-12 19:31
PROVIDERS: ADMIT Family Medicine; ATTEND Family Medicine
PROC: 0JBP0ZZ Excision of Left Lower Leg Subcutaneous Tissue and Fascia, Open Approach (ICD-10-PCS; principal; 2017-05-05)
PROC: 0JBN0ZZ Excision of Right Lower Leg Subcutaneous Tissue and Fascia, Open Approach (ICD-10-PCS; 2017-05-05)
PROC: 0JB90ZZ Excision of Buttock Subcutaneous Tissue and Fascia, Open Approach (ICD-10-PCS; 2017-05-05)
PROC: 02HV33Z Insertion of Infusion Device into Superior Vena Cava, Percutaneous Approach (ICD-10-PCS; 2017-05-05)
PROC: 3E0336Z Introduction of Nutritional Substance into Peripheral Vein, Percutaneous Approach (ICD-10-PCS; 2017-05-08)
PROC: 0DH67UZ Insertion of Feeding Device into Stomach, Via Natural or Artificial Opening (ICD-10-PCS; 2017-05-11)
PROC: 3E0G76Z Introduction of Nutritional Substance into Upper GI, Via Natural or Artificial Opening (ICD-10-PCS; 2017-05-11)
DX: J18.9 Pneumonia, unspecified organism (principal); L89.153 Pressure ulcer of sacral region, stage 3; L89.323 Pressure ulcer of left buttock, stage 3; J96.02 Acute respiratory failure with hypercapnia; A04.7 Enterocolitis due to Clostridium difficile; N39.0 Urinary tract infection, site not specified; E46 Unspecified protein-calorie malnutrition; F33.2 Major depressive disorder, recurrent severe without psychotic features; R45.851 Suicidal ideations; L89.222 Pressure ulcer of left hip, stage 2; L89.621 Pressure ulcer of left heel, stage 1; L89.611 Pressure ulcer of right heel, stage 1; I10 Essential (primary) hypertension; F50.89 Other specified eating disorder; L98.491 Non-pressure chronic ulcer of skin of other sites limited to breakdown of skin; L89.892 Pressure ulcer of other site, stage 2; I87.2 Venous insufficiency (chronic) (peripheral); R62.7 Adult failure to thrive; R68.0 Hypothermia, not associated with low environmental temperature; E03.9 Hypothyroidism, unspecified; Z68.24 Body mass index [BMI] 24.0-24.9, adult; F17.210 Nicotine dependence, cigarettes, uncomplicated; Z66 Do not resuscitate; Z51.5 Encounter for palliative care; Z53.29 Procedure and treatment not carried out because of patient's decision for other reasons; Z79.899 Other long term (current) drug therapy; Z90.49 Acquired absence of other specified parts of digestive tract
CPT/HCPCS: 36415; 36600; 44500; 70450; 71010; 71020; 74000; 74340; 80048; 80053; 80076; 80202; 80307; 81001; 82550; 82553; 82803; 82962; 83605; 83735; 83880; 84100; 84134; 84439; 84443; 84478; 84484; 85025; 85610; 87040; 87070; 87077; 87086; 87186; 87205; 87493; 93005; 93010; 93306; 94660; 96365; 99291; J0456; J0692; J0696; J1642; J1650; J1720; J1815; J1940; J1956; J2310; J2405; J3370; J3475; J3480; J3490; J7030; J7040; J7060; J7620; S0119